=== PATIENT | male | born 1950 | race Caucasian/White ===

== ENCOUNTER 2019-01-21 02:11 | Inpatient (IN) | payer MEDICARE, OTHER, SELFPAY ==
[2019-01-21] VITALS (38 sets, daily range): BP systolic 140–224; BP diastolic 65–104; PULSE 80–106; RESP 12–25; TEMP 36.5–37.6; O2SAT 94–100; BMI 22.8; BMI 22.9
--- NOTE | 2019-01-21 02:11 | ECHOD_ITS ---
Reason For Study: CHF Procedure This was a 2D Doppler, Color Flow transthoracic echocardiogram. The study was technically difficult. Contrast injection was performed. Exam performed portable in ICU/CCU. Left Ventricle Normal LV size. Moderate concentric left ventricular hypertrophy. Left ventricular systolic function is normal. The estimated ejection fraction is 65 %. There is evidence of diastolic dysfunction. No regional wall motion abnormalities noted. Right Ventricle Normal RV size. Normal systolic function. Atria The left atrium is mildly enlarged. Normal right atrium. No doppler evidence for ASD. Mitral Valve There is mild mitral annular calcification. Normal mitral valve. Trivial mitral valve insufficiency. Tricuspid Valve Normal tricuspid valve. Trivial tricuspid valve insufficiency. Unable to estimate RV systolic pressure/pulmonary artery pressure due to technically difficult study. Aortic Valve The aortic valve is not well visualized. Mild focal aortic valve calcification. Pulmonic Valve The pulmonic valve is not well visualized. Trivial pulmonic valve insufficiency. Great Vessels The aortic root is not well visualized. Pericardium/Pleural No pericardial effusion. Epicardial fat. MMode/2D Measurements & Calculations LVIDd: 4.2 cm IVSd: 1.4 cm LA dimension: 3.8 cm LVIDs: 2.7 cm LVPWd: 1.4 cm FS: 35.2 % LAV(MOD-bp): 59.9 ml LA A4 area: 19.3 cm2 LAV(MOD-bp) Indexed: 35.5 ml/m2 LAV(MOD-sp2): 61.9 ml LAV(MOD-sp4): 52.0 ml Time Measurements MV dec time: 0.21 sec Doppler Measurements & Calculations MV E max marin: 80.4 cm/sec Lat Peak E' Marin: 7.9 cm/sec Med Peak E' Marin: 5.3 cm/sec MV A max marin: 47.4 cm/sec E/E' lat: 10.2 E/E' med: 15.2 MV E/A: 1.7 MV V2 max: 93.6 cm/sec MV P1/2t max marin: 94.4 cm/sec Ao V2 max: 138.9 cm/sec MV max P.5 mmHg MV P1/2t: 62.5 msec Ao max P.7 mmHg MV V2 mean: 49.9 cm/sec MV dec slope: 442.0 cm/sec2 MV mean P.2 mmHg MVA(P1/2t): 3.5 cm2 MV V2 VTI: 17.3 cm LV V1 max: 75.1 cm/sec LV V1 max P.3 mmHg Interpretation Summary The study was technically difficult. Contrast injection was performed. Left ventricular systolic function is normal. The estimated ejection fraction is 65 %. Moderate concentric left ventricular hypertrophy. The left atrium is mildly enlarged. There is mild mitral annular calcification. Trivial mitral valve insufficiency. Trivial tricuspid valve insufficiency. Mild focal aortic valve calcification. Trivial pulmonic valve insufficiency. Epicardial fat. Unable to estimate RV systolic pressure/pulmonary artery pressure due to technically difficult study. There is evidence of diastolic dysfunction. Ordering Physician: Laura Ghotra Performed By: Silvestre Parker RCS
--- NOTE | 2019-01-21 02:11 | US_ITS ---
STUDY: RENAL ULTRASOUND - COMPLETE REASON FOR EXAM: Male, 68 years old. Acute renal failure TECHNIQUE: Ultrasound evaluation of the kidneys was performed with real-time and static ji-scale imaging. COMPARISON: None. FINDINGS: RIGHT KIDNEY: The right kidney is not visualized.. LEFT KIDNEY: Normal location of the left kidney, which is normal in size. The left kidney measures 9.1 x 4.8 x 5 cm. There is a normal cortex of the left kidney. The renal cortex measures 1.6 cm. There is no left renal mass or cyst. There are no left renal calculi. There is no left hydronephrosis. DISTAL LEFT URETER: There is non-visualization of the distal left ureter. There is no demonstrated left ureterovesical junction calculus. There is a visualized left ureteral jet. BLADDER: There is a Jefferson catheter within the bladder.. US/Kidney and Bladder IMPRESSION: Nonvisualization of the right kidney. Normal left kidney CT may be helpful for further evaluation as might radionuclide renal scan if clinically indicated Electronically Signed: Chris Hodge MD at 17:43 EDT , Service support ,
--- NOTE | 2019-01-21 03:25 | HP.PCM_ITS ---
Problem List (1) Acute respiratory failure with hypoxia Status: Acute (2) Acute exacerbation of congestive heart failure Status: Acute Qualifiers: Heart failure type: unspecified Qualified Code(s): I50.9 - Heart failure, unspecified (3) COPD with acute exacerbation Status: Acute (4) Acute kidney injury Status: Acute (5) Cardiac enzymes elevated Status: Acute (6) Hypertensive emergency Status: Acute (7) Kidney disease Status: Chronic (8) Tobacco use Status: Chronic (9) Hypertension Status: Chronic Qualifiers: Hypertension type: essential hypertension Qualified Code(s): I10 - Essential (primary) hypertension (10) Hyperlipidemia Status: Chronic Qualifiers: Hyperlipidemia type: unspecified Qualified Code(s): E78.5 - Hyperlipidemia, unspecified (11) Alcohol abuse Status: Chronic History of Present Illness Date of Admission: 01/21/19 Chief Complaint: Dyspnea The patient is a 68 y/o M w/ Confucianism M w/ PMHx: EtOH Abuse, Tobacco, Suspected COPD, HTN, HLD, CKD unclear stage who presents to the [facility] on 01/21/19 as direct admission from [facility] [place] w/ history of presenting to [place] ED on 01/21/19 with history of several month history of dyspnea, worse with exertion as well as ongoing 1.5 pack/day cigarette tobacco usage since use with notably worsened dyspnea over the last 2 days with no specific productive cough although does have chronic cough nor fevers or chills and no specific weight gain or extremity edema with chronic orthopnea but this is unchanged from prior prompting eventual transition to the ED at outside hospital for evaluation. In the outside hospital ED patient initially with increased respiratory rate, accessory muscle usage, evident distress, retracting and minimal air movement with patient initial administration of Solu-Medrol, albuterol as well as DuoNeb therapy in addition to a small normal saline 500 cc bolus x1. Following this result of chest x-ray with additionally crackles then on examination with IV fluids immediately discontinued. Further work-up per discussion with outside hospital ED physician very concerning for volume overload but given patient concurrent acute kidney injury ED physician was hesitant about diuresis. Additional ED lab imaging, vital sign assessments included: VS: T 97.0, BP 238/132, HR 124, 35 RR, 90% on RA-->96% on 2L NC, HR 92, BP 198/94, RR 18-->SBP 211/103 upon leaving ED with ED physician aware CBC w/ WBC 12.7, Hgb 11.0, Plt 186 with no marked L shift LA 32 (> 36 considered elevated) Trop 0.17 (0.0-0.05 normal range, indeterminant range) BNP 4,100 CXR with ? volume overload, ? BL LE infiltrates CMP w/ Na 138, CO2 14.3, K 4.6, BUN/Cr 53/4.7, glucose 145, AG 23 ABG attempt x 2 failed, not obtained EKG with no acute evidence of ischemia Rocephin, Solumedrol 125 mg IV x 1, Albuterol x 2, Duoneb x 1, NS 500 x 1, Lasix 40 mg IV x 1. Past Medical History Past Medical History (Chronic Problems): Chronic Problems Kidney disease (Chronic) Tobacco use (Chronic) Hypertension (Chronic) Hyperlipidemia (Chronic) Alcohol abuse (Chronic) Surgical History: - - Tonsillectomy, appendectomy, left retinal detachment surgery. Psychiatric History: No pertinent psych hx Lives: Spouse/ Significant Other Smoking Status: Current every day smoker Tobacco Use: Cigarettes - Half pack per day cigarette tobacco usage. Alcohol: Heavy - Notes frequent burping usage, usually mixed, usually 8 drinks nightly. Drugs: None - *Family History Maternal History Items: - - Notes a maternal family history of hypertension. Paternal History Items: - - Father was healthy and unfortunately from complications at an older age from pneumonia but denied any history of heart disease, diabetes or cancer. Review of Systems Constitutional: Reports: Anorexia, Malaise, Weakness, Fatigue. Denies: Chills, Fever, Weight Change HEENT: Denies: Head Aches, Sinus Congestion, Sinus Drainage Cardiovascular: Reports: Chest Tightness, Orthopnea. Denies: Chest Pain, Chest Pressure, Heaviness, Light Headedness, Palpitations, Syncope Respiratory: Reports: Cough, Shortness of Breath, Shortness of breath at rest, Shortness of breath upon exertion, Wheezing. Denies: Sputum production Gastrointestinal: Denies: Abdominal Pain, Nausea, Vomiting Genitourinary: Denies: Dysuria Musculoskeletal: Reports: Joint Pain. Denies: Joint Tenderness Skin: Denies: Rash, Wounds Neurological: Denies: Numbness, Tingling, Focal weakness Psychiatric: Denies: Anxiety, Depression, Homicidal Ideations, Suicidal Ideations Hematologic/ Lymphatic: Denies: Easy Bruising, Easy Bleeding VTE Information - Inpt Only VTE Present on Admission: No VTE Mechan Device Prophylaxis: SCD's VTE Pharm Prophylaxis ordered?: Yes Patient Problems: Active and Suspected Problems Acute respiratory failure with hypoxia (Acute) Acute exacerbation of congestive heart failure (Acute) COPD with acute exacerbation (Acute) Acute kidney injury (Acute) Cardiac enzymes elevated (Acute) Hypertensive emergency (Acute) Subjective: Seated upright in the ICU bed, increased work of breathing, accessory muscle usage, some difficulty speaking full sentences. Objective: Physical Examination: General: awake, alert, oriented x 3 and cooperative, difficulty speaking in full sentences, seated upright in the ICU bed, increased work of breathing, accessory muscle usage, evident distress. Skin: normal color, turgor, no icterus, cyanosis. HEENT: AT/NC, EOMI, PERRLA, widely dry MM, no carotid bruits,+ JVD noted. Lungs: Severely diffusely diminished, increased respiratory rate, accessory muscle usage, increased work of breathing, evident distress, very very distant and expiratory wheeze, no overt rales or rhonchi noted. Heart: Tachycardic with regular rhythm; no gallop, rub audible. Abdomen: soft, NTTP, ND, normal BS, no HSM. Extremities: no cyanosis, clubbing, dural mild ankle edema. Neurological: patient awake, alert, oriented x 3; cognitive function intact; pupils equally reactive to light and accomodation; cranial nerves II-XII grossly normal, moving all 4 extremities, no focal deficits, strength really global decrease secondary to acute presentation. Psychiatric: affect appears fatigued, no acute evidence of depressive or anxiety feelings. Assessment/Plan All Active Problems Acute respiratory failure with hypoxia (Acute) Acute exacerbation of congestive heart failure (Acute) COPD with acute exacerbation (Acute) Acute kidney injury (Acute) Cardiac enzymes elevated (Acute) Hypertensive emergency (Acute) The patient is a 68 y/o M w/ Confucianism M w/ PMHx: EtOH Abuse, Tobacco, Suspected COPD, HTN, HLD, CKD unclear stage who presents to the [facility] on 01/21/19 as direct admission from [facility] [place] w/ history of presenting to [place] ED on 01/21/19 with history of several month history of dyspnea, worse with exertion as well as ongoing 1.5 pack/day cigarette tobacco usage since use with notably worsened dyspnea over the last 2 days with no specific productive cough although does have chronic cough nor fevers or chills and no specific weight gain or extremity edema with chronic orthopnea. 1. Acute hypoxic respiratory failure, multifactorial, Suspected Acute Decompensated CHF Unclear Type as well as #2: Given OSH ED presentation w/ respiratory distress and notable work of breathing, to be cautious vision to admit to ICU, upon initial presentation notably concerning with requested stat ABG and initiation of BiPAP,, maintain on cardiac telemetry, obtain cardiac enzyme series, obtain serial EKGs, initiate IV lasix diuresis given concern for overload, monitor I/Os, maintain on intake restriction, continue medical therapy w/ asa, add statin, NG drip initiation especially given notable hypertension ongoing, holding nephrotoxic regimen aside lasix given ETHAN concurrently. Will obtain TSH and magnesium level. Will obtain ECHO. Cardiology consulted, pending. PRN morphine to decrease afterload, continue oxygen supplementation, if necessary will position w/ upright position with legs off bed to decrease preload. 2. Acute on chronic COPD exacerbation: As noted above ABG pending, initiate BiPAP, wean as tolerated to room air, continue ATC duonebs, PRN albuterol, IV methylprednisolone, HOB, IS parameters, given afebrile, no WBC elevation or L shift, will defer abx initiation, will obtain sputum Cx, respiratory viral panel. 3. Acute kidney injury on ? CKD Unclear stage: Secondary to acute CHF hypervoemic presentation given history. Admission BUN/Cr 53/4.7, prior baseline creatinine unclear. As noted continue treatment as per #1, hold any additional nephrotoxic medications and repeat chemistry in AM. Will obtain renal US, FeNa assessment and request Nephrology evaluation of patient. 4. Indeterminate cardiac enzyme: EKG in ED w/ no acute evidence of ischemia, CXR w/ him overload with congested appearance, troponin 0.17 which at outside hospital ED facility is considered indeterminate. Will maintain on a monitored bed, continue serial cardiac enzymes and EKGs as noted. Obtain magnesium level upon admission. Given unclear trend, complicated presentation, to be cautious will initiate Heparin drip until ascertain direction of enzymes and if no further elevation will transition to prophylaxis only. Continue medical management w/ asa, add statin w/ AM FLP. Cardiology consulted, pending. ASA, NG, morphine. 5. Hypertensive Emergency: OSH ED presentation with BP 238/132--> repeat 198/94 with report falling which requested IV Lasix given acute presentation, requested regimen administration prior to transfer given ongoing elevation when RN report being administered. Will continue to very closely trend, unclear if potentially initiating factor to acute presentation #1, given #1 concurrently, NG drip initiation with concurrent IV Lasix diuresis continuation. 6. Hyperlipidemia: Add statin therapy, FLP in a.m. 7. Tobacco Abuse: Encouraged cessation, inpatient consultation per RT, NR if desired. 8. EtOH Abuse: Patient notes routine consumption of 8 mixed bourbon drinks per day. Will maintain on CIWA protocol, MVI, thiamine and folic acid. Magnesium and phosphorus levels requested. 9. DVT Prophylaxis: SCDs, heparin drip as noted given unclear trending of cardiac enzymes but concerning presentation. 10. CODE status: Discussed CODE status at length including difference between F ULL code, DNR-CCA and DNR-CC status. Following discussions about the differences in these status, requested full CODE STATUS advanced Care Planning Face to Face Time: 16 minutes. Code Visit Inpatient E&M: 82459 Init Hosp L3 Procedures: 80311 Advncd Care Plan 30 Min
[2019-01-21 03:50] LABS: Absolute Lymphocyte Count 0.23 X10^3/uL (0.83-4.51); Absolute Neutrophil Count 6.5 X10^3/uL (2.0-7.7); Basophil# 0.02 X10^3/uL; Basophil% 0.3 % (0-1); Hematocrit 33.9 % (40-54); Hemoglobin 11.2 g/dL (13.0-16.5); Lymphocyte # 0.23 X10^3/ul (4.0); Lymphocyte % 3.3 % (19-41); Mean Corpuscular Hgb 39.7 pg (27.0-32.0); Mean Corpuscular Volume 120.2 fL (80-94); Mean Platelet Vol. 10.3 fl (6.2-12.0); Monocyte# 0.21 X10^3/uL; NRBC Flagged by Analyzer 0 % (0-5); Neutrophil # 6.46 X10^3/uL (2.7-7.7); POSITIVE DIFFERENTIAL YES; POSITIVE MORPHOLOGY YES; Platelet Count 144 K/mm3 (150-450); RBC Distribution Width SD 62.3 fl (35.1-43.9); Red Blood Count 2.82 M/mm3 (4.6-6.2)
[2019-01-21 03:51] LABS: Differential Indicated SCAN CRITERIA MET
[2019-01-21 03:56] LABS: International Normalized Ratio 1.1; Prothrombin Time (Protime)PT. 13.6 SECONDS (11.7-14.9)
[2019-01-21 03:57] LABS: Partial Thromboplast Time 28.3 Seconds (24.1-36.2)
[2019-01-21] MEDS: Furosemide 40 MG/4 ML Vial IV ×3 (04:01→21:09)
[2019-01-21 04:08] LABS: Anion Gap 18 (5-15); BUN 54 mg/dL (7-18); BUN/Creat Ratio 10.9 RATIO (10-20); Calcium,Total 8.3 mg/dL (8.5-10.1); Chloride 110 mmol/L (98-107); Cholesterol 223 mg/dL (200); Creatinine, Serum 4.94 mg/dL (0.70-1.30); EST Glomerular Filtration Rate 13 mL/min (>60); Est Glom Filt Rate - Afr Amer 15 mL/min (>60); Estimated Creatinine Clearance 12.45 ml/min; Glucose 156 mg/dL (74-106); High Density Lipoprotein 119 mg/dL; Potassium 4.5 mmol/L (3.5-5.1); Sodium Level 142 mmol/L (136-145); Triglycerides 115 mg/dL; Very Low Density Lipoprotein 23 mg/dL (5-40)
[2019-01-21 04:14] LABS: Magnesium 1.2 mg/dL (1.6-2.6); Thyroid Stim Hormone (TSH) 0.98 uIU/mL (0.358-3.74)
[2019-01-21] MEDS: Nitroglycerin Infusion 250 ML 3 MG IV (04:14)
[2019-01-21 04:26] LABS: Allen Test POS; Base Excess -15 mmol/L (-2 to +2); Bicarbonate 11.3 mmol/L (22-26); Blood Gas Specimen Type ART; O2 Delivery Device Nasal Can; PO2 81 mmHG (75-100); SITE L Radial; SO2 95 % (95-99); Time Given 415; Total Carbon Dioxide 12 mmol/L; pCO2 22.3 mmHg (35-45); pH 7.32 (7.35-7.45)
[2019-01-21 04:41] LABS: Bedside Glucose 171 mg/dL (70-110)
[2019-01-21 04:41] LABS: Mucous, Urine 0 SEEN /hpf (<or=2+); Squamous Epithelial Cells - UA 0 SEEN /hpf (0-5)
[2019-01-21] MEDS: HEPARIN/D5w 25,000 UNITS 25,000 UNITS/250 ML IV.SOLN. 10 UNITS IV (04:43)
[2019-01-21] MEDS: CLARIFY ORDER 1 EACH NOTE ×2 (04:44→05:00)
[2019-01-21 04:46] LABS: Color, Urine Straw (Yellow); Glucose, Dipstick Normal (Normal); Ketone-Dipstick 5 mg/dl (Negative); Leukocyte Esterase-Dipstick Negative /ul (Negative); Nitrite-Dipstick Negative (Negative); Occult Blood-Urine 10 /ul (Negative); Protein-Dipstick 100 mg/dl (Negative); Urine Bilirubin Dipstick Negative (Negative); Urine Clarity Clear (Clear); Urine Urobilinogen Normal (Normal)
[2019-01-21 04:53] LABS: Bacteria RARE /hpf (None Seen)
[2019-01-21 04:54] LABS: Red Blood Cells-Urine 0-5 SEEN /hpf (0-5); White Blood Cells 0 SEEN /hpf (0-5)
[2019-01-21 04:56] LABS: Phosphorus 5.3 mg/dL (2.5-4.9)
[2019-01-21 05:01] LABS: Urine Sodium 120 mmol/L (Not Establ.)
[2019-01-21] MEDS: Heparin Injection (Vial) 5,000 UNIT/ML VIAL 4500 UNIT IV (05:05)
[2019-01-21 05:11] LABS: Amphetamine Urine VISTA NEGATIVE (<1000 ng/mL); Barbiturate Urine VISTA NEGATIVE (< 200 ng/mL); Benzodiazepine Urine VISTA NEGATIVE (< 200 ng/mL); Cocaine Urine VISTA NEGATIVE (< 300 ng/mL); Ecstacy Urine VISTA NEGATIVE (< 500 ng/mL); Methadone Urine VISTA NEGATIVE (< 300 ng/mL); PCP Urine VISTA NEGATIVE (< 25 ng/mL); THC Urine VISTA NEGATIVE (< 50 ng/mL); Vista UDS pH Range 6
--- NOTE | 2019-01-21 05:55 | RAD_ITS ---
STUDY: X-RAY CHEST REASON FOR EXAM: Male, 68 years old. Shortness of breath TECHNIQUE: Single AP portable view of the chest. COMPARISON: None. FINDINGS: The lungs are clear and expanded. There is no demonstrated pleural abnormality. Normal size heart. Normal mediastinum and susan. Normal visualized pulmonary arteries. Normal visualized aortic arch and descending thoracic aorta. Normal visualized thoracic spine. Normal visualized ribs, clavicles, and shoulders. There is no demonstrated abnormality of the visualized soft tissue structures of the upper abdomen. RAD/Chest 1 View (Portable) IMPRESSION: Normal x-ray examination of the chest. Electronically Signed: Lissette White, at 10:42 EDT Tel , Service support ,
--- NOTE | 2019-01-21 05:55 | EKG12_ITS ---
Test Reason : ADMISSION Blood Pressure : / mmHG Vent. Rate : 113 BPM Atrial Rate : 113 BPM P-R Int : 152 ms QRS Dur : 094 ms QT Int : 368 ms P-R-T Axes : 000 030 217 degrees QTc Int : 504 ms Baseline Artifact, underlying rhythm appears to be A-fib Marked ST abnormality, possible inferior subendocardial injury Marked ST abnormality, possible anterolateral subendocardial injury Abnormal ECG No previous ECGs available Confirmed by ANITRA MITCHELL, KASI ([id number]), research editor BAY CLEMENTE ([id number]) on 01/28/2019 3:18:47 PM Referred By: SAJI Confirmed By:JESICA AYOUB MD
[2019-01-21] MEDS: Magnesium Sulfate 4gm/100mL 4 GM/100 ML IV.SOLN. IV (06:39)
[2019-01-21] MEDS: Ipratropium/Albuterol Sulfate 3 ML AMPUL.NEB INHALATION ×4 (07:11→19:10)
--- NOTE | 2019-01-21 07:27 | PCM.CON.CC ---
Problem List (1) Acute respiratory failure with hypoxia Status: Acute (2) Acute exacerbation of congestive heart failure Status: Suspected Qualifiers: Heart failure type: unspecified Qualified Code(s): I50.9 - Heart failure, unspecified (3) Acute kidney injury Status: Suspected (4) Kidney disease Status: Chronic (5) Hypertensive emergency Status: Acute (6) Tobacco use Status: Chronic (7) Hypertension Status: Chronic Qualifiers: Hypertension type: essential hypertension Qualified Code(s): I10 - Essential (primary) hypertension (8) Hyperlipidemia Status: Chronic Qualifiers: Hyperlipidemia type: unspecified Qualified Code(s): E78.5 - Hyperlipidemia, unspecified Reason for Consult Date of Consultation: 01/21/19 Reason for Consultation: Acute respiratory failure History of Present Illness: The patient is a 68 year old M, with past medical history listed below, who presented to [facility] as a transfer from [facility] secondary to acute hypoxic respiratory failure. Patient had reported worsening shortness of breath over the last couple of months, but since Monday has noted significant shortness of breath. Patient states that he had a cough that was productive of clear to pale yellow sputum. Patient had reported no fever, chills, lower extremity edema orthopnea. At the outside facility, patient reportedly had blood pressures in excess of 220 systolic and 110 diastolic. Patient was given Solu-Medrol, DuoNeb and a normal saline bolus. There was some concern for patient's renal function. Patient did require BiPAP rescue overnight. Patient reports some improvement since being in the intensive care unit. Patient is currently on a nitroglycerin drip with improvement in blood pressure. Patient is also requiring BiPAP intermittently and reports subjective improvement with it in place. Patient is requiring supplemental oxygen, but states this has not been necessary previously. Patient has received Rocephin, Solu-Medrol, albuterol and DuoNeb therapy. Patient readily admits that he does not like seeing doctors. Patient does report that he has been seen by wax room supervisor in the past and there was some discussion about concerns for lower extremity perfusion and possible need for dialysis if I got contrast. Patient is not aware of his baseline creatinine, but states that he has had his labs completed at [facility] previously. Patient does smoke at baseline, but reports he is never had pulmonary function tests. Patient is reportedly not on inhalers at baseline. Patient denies ever needing intensive care previously. Patient denies ever needing supplemental oxygen. Patient does admit that I have been going downhill for the last couple of years. 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 Past Medical History Past Medical History (Chronic Problems): Chronic Problems Kidney disease (Chronic) Tobacco use (Chronic) Hypertension (Chronic) Hyperlipidemia (Chronic) Alcohol abuse (Chronic) Allergies No Known Allergies Allergy (Verified 01/21/19 03:55) Home Medications: Ambulatory Orders Medication Instructions Recorded Metoprolol Succinate [Toprol Xl] 50 mg PO DAILY 01/21/19 Surgical History: - - Tonsillectomy, appendectomy, left retinal detachment surgery. Psychiatric History: No pertinent psych hx Lives: Spouse/ Significant Other Smoking Status: Current every day smoker Tobacco Use: Cigarettes Alcohol: Heavy - Notes frequent burping usage, usually mixed, usually 8 drinks nightly. Drugs: None - *Family History Maternal History Items: - - Notes a maternal family history of hypertension. Paternal History Items: - - Father was healthy and unfortunately from complications at an older age from pneumonia but denied any history of heart disease, diabetes or cancer. Review of Systems Constitutional: Denies: Anorexia, Chills, Fever, Night Sweats, Weakness, Weight Change Eyes: Denies: Blurred vision, Conjunctivae Inflammation, Double vision, Eyelid Inflammation HEENT: Denies: Difficulty Hearing, Difficulty Swallowing, Ear Pain, Hard of Hearing, Nasal bleeding, Nasal Congestion Cardiovascular: Reports: Chest Tightness. Denies: Chest Pain, Chest Pressure, Edema, Orthopnea Respiratory: Reports: Cough, Shortness of breath at rest - Currently. Denies: Pleuritic Pain Gastrointestinal: Denies: Abdominal Pain, Constipation, Diarrhea, Hematemesis, Hematochezia, Vomiting Genitourinary: Denies: Dysuria, Hematuria, Incontinence Musculoskeletal: Denies: Joint stiffness, Joint Tenderness, Muscle pain Skin: Denies: Dryness, Rash Neurological: Denies: Balance problems, Double vision, Change in Speech Psychiatric: Denies: Anxiety, Depression, Homicidal Ideations, Suicidal Ideations Endocrine: Denies: Change in Body Habitus Hematologic/ Lymphatic: Denies: Adenopathy, Easy Bruising Patient Problems: Active and Suspected Problems Acute respiratory failure with hypoxia (Acute) Acute exacerbation of congestive heart failure (Suspected) COPD with acute exacerbation (Acute) Acute kidney injury (Suspected) Cardiac enzymes elevated (Acute) Hypertensive emergency (Acute) Objective: Chest x-ray was personally reviewed and shows no acute infiltrate, but cephalization bilaterally. No echocardiogram, pulmonary function test or other diagnostic studies are available for review in our computer system. - Physical Exam General: Alert, Oriented x3, Cooperative, No apparent distress, - - Appears stated age. Mild conversational dyspnea. HEENT: Atraumatic, PERRLA, EOMI, Normocephalic, - - No scleral icterus or injection noted. Oral: Moist Mucosa, No Gingival or Mucosal Lesions/ Ulcerations Neck: Supple, No Nodes, Trachea Midline, JVD, Right Lungs: No rhonchi, No wheeze, Diminished, Rales Cardiovascular: Regular rate, Regular Rhythm, Normal S1, Normal S2, No murmurs, No rub noted, No Gallop Abdomen: Bowel Sounds Present, Soft, Non Tender, Non-Distended Extremities: No clubbing, No cyanosis, No edema, Capillary Refill Less than 3 Seconds Skin: No rashes, No breakdown Musculoskeletal: No Tenderness to Palpation of Joints or Extremities Lymphatic: No Cervical, Supraclavicular, or Inguinal Adenopathy Neurological: Cranial nerves II-XII grossly intact, Neuro grossly intact, Motor Exam 5/5 strength throughout Psych/Mental Status: Alert and oriented to time, place, person, mood and affect Vital Signs Temp Pulse Resp BP Pulse Ox 37.0 C 85 18 171/86 H 96 01/21/19 07:00 01/21/19 07:13 01/21/19 07:13 01/21/19 07:00 01/21/19 07:14 Oxygen Flow Rate (L/min) 3 Oxygen Delivery Method Nasal Cannula Weight: 62.3 kg Body Mass Index (BMI) 22.8 Intake and Output for Last 24 Hours 01/19/19 01/20/19 01/21/19 23:59 23:59 23:59 Output Total 500 / 500 Balance -500 / -500 Laboratory Tests Past 24 Hrs 01/21/19 01/21/19 01/21/19 03:35 03:35 03:35 WBC 7.0 RBC 2.82 L Hgb 11.2 L Hct 33.9 L MCV 120.2 H MCH 39.7 H MCHC 33.0 RDW Std Deviation 62.3 H RDW Coeff of Anuradha 14.0 Plt Count 144 L MPV 10.3 Immature Gran % (Auto) 0.400 Neut % (Auto) 93.0 H Lymph % (Auto) 3.3 L Gaston % (Auto) 3.0 Eos % (Auto) 0.0 Baso % (Auto) 0.3 Absolute Neuts (auto) 6.5 Absolute Lymphs (auto) 0.23 L Nucleated RBC % 0 PT 13.6 INR 1.1 APTT 28.3 Specimen Type Sample Site pH Bicarbonate Actual POC Total CO2 Base Excess O2 Saturation ABG pCO2 ABG pO2 Sanchez Test O2 Delivery Device Liter Flow Blood Gas Notified Whom Blood Gas Notified Time Sodium Potassium Chloride Carbon Dioxide Anion Gap BUN Creatinine Estim Creat Clear Calc Est GFR (MDRD) Af Amer Est GFR (MDRD) Non-Af BUN/Creatinine Ratio Glucose Calcium Phosphorus Magnesium 1.2 L Troponin I Triglycerides Cholesterol LDL Cholesterol VLDL Cholesterol HDL Cholesterol TSH 0.98 Urine Color Urine Clarity Urine pH Ur Specific Childress Urine Protein Urine Glucose (UA) Urine Ketones Urine Occult Blood Urine Nitrite Urine Bilirubin Urine Urobilinogen Ur Leukocyte Esterase Urine RBC Urine WBC Ur Squamous Epith Cells Urine Bacteria Urine Mucus Ur Random Sodium Urine Creatinine Urine Opiates Screen Urine Methadone Screen Ur Barbiturates Screen Ur Phencyclidine Scrn Ur Amphetamines Screen U Methamphetamin-MDMA U Benzodiazepines Scrn Urine Cocaine Screen U Cannabinoids Screen Ur Drug Screen Comment Ethyl Alcohol 01/21/19 01/21/19 01/21/19 03:35 03:35 03:35 WBC RBC Hgb Hct MCV MCH MCHC RDW Std Deviation RDW Coeff of Anuradha Plt Count MPV Immature Gran % (Auto) Neut % (Auto) Lymph % (Auto) Gaston % (Auto) Eos % (Auto) Baso % (Auto) Absolute Neuts (auto) Absolute Lymphs (auto) Nucleated RBC % PT INR APTT Specimen Type Sample Site pH Bicarbonate Actual POC Total CO2 Base Excess O2 Saturation ABG pCO2 ABG pO2 Sanchez Test O2 Delivery Device Liter Flow Blood Gas Notified Whom Blood Gas Notified Time Sodium 142 Potassium 4.5 Chloride 110 H Carbon Dioxide 14.0 L Anion Gap 18 H BUN 54 H Creatinine 4.94 H Estim Creat Clear Calc 12.45 Est GFR (MDRD) Af Amer 15 L Est GFR (MDRD) Non-Af 13 L BUN/Creatinine Ratio 10.9 Glucose 156 H Calcium 8.3 L Phosphorus 5.3 H Magnesium Troponin I Pending Triglycerides 115 Cholesterol 223 H LDL Cholesterol 81 VLDL Cholesterol 23 HDL Cholesterol 119 TSH Urine Color Urine Clarity Urine pH Ur Specific Childress Urine Protein Urine Glucose (UA) Urine Ketones Urine Occult Blood Urine Nitrite Urine Bilirubin Urine Urobilinogen Ur Leukocyte Esterase Urine RBC Urine WBC Ur Squamous Epith Cells Urine Bacteria Urine Mucus Ur Random Sodium Urine Creatinine Urine Opiates Screen Urine Methadone Screen Ur Barbiturates Screen Ur Phencyclidine Scrn Ur Amphetamines Screen U Methamphetamin-MDMA U Benzodiazepines Scrn Urine Cocaine Screen U Cannabinoids Screen Ur Drug Screen Comment Ethyl Alcohol 01/21/19 01/21/19 01/21/19 04:22 04:30 04:30 WBC RBC Hgb Hct MCV MCH MCHC RDW Std Deviation RDW Coeff of Anuradha Plt Count MPV Immature Gran % (Auto) Neut % (Auto) Lymph % (Auto) Gaston % (Auto) Eos % (Auto) Baso % (Auto) Absolute Neuts (auto) Absolute Lymphs (auto) Nucleated RBC % PT INR APTT Specimen Type ART Sample Site L Radial pH 7.32 L Bicarbonate Actual 11.3 L POC Total CO2 12 Base Excess -15 L O2 Saturation 95 ABG pCO2 22.3 L ABG pO2 81 Sanchez Test POS O2 Delivery Device Nasal Can Liter Flow 4.0 Blood Gas Notified Whom ICU MD Blood Gas Notified Time 415 Sodium Potassium Chloride Carbon Dioxide Anion Gap BUN Creatinine Estim Creat Clear Calc Est GFR (MDRD) Af Amer Est GFR (MDRD) Non-Af BUN/Creatinine Ratio Glucose Calcium Phosphorus Magnesium Troponin I Triglycerides Cholesterol LDL Cholesterol VLDL Cholesterol HDL Cholesterol TSH Urine Color Urine Clarity Urine pH Ur Specific Childress Urine Protein Urine Glucose (UA) Urine Ketones Urine Occult Blood Urine Nitrite Urine Bilirubin Urine Urobilinogen Ur Leukocyte Esterase Urine RBC Urine WBC Ur Squamous Epith Cells Urine Bacteria Urine Mucus Ur Random Sodium Urine Creatinine 17.00 Urine Opiates Screen NEGATIVE Urine Methadone Screen NEGATIVE Ur Barbiturates Screen NEGATIVE Ur Phencyclidine Scrn NEGATIVE Ur Amphetamines Screen NEGATIVE U Methamphetamin-MDMA NEGATIVE U Benzodiazepines Scrn NEGATIVE Urine Cocaine Screen NEGATIVE U Cannabinoids Screen NEGATIVE Ur Drug Screen Comment Ethyl Alcohol 01/21/19 01/21/19 01/21/19 04:30 04:30 05:00 WBC RBC Hgb Hct MCV MCH MCHC RDW Std Deviation RDW Coeff of Anuradha Plt Count MPV Immature Gran % (Auto) Neut % (Auto) Lymph % (Auto) Gaston % (Auto) Eos % (Auto) Baso % (Auto) Absolute Neuts (auto) Absolute Lymphs (auto) Nucleated RBC % PT INR APTT Specimen Type Sample Site pH Bicarbonate Actual POC Total CO2 Base Excess O2 Saturation ABG pCO2 ABG pO2 Sanchez Test O2 Delivery Device Liter Flow Blood Gas Notified Whom Blood Gas Notified Time Sodium Potassium Chloride Carbon Dioxide Anion Gap BUN Creatinine Estim Creat Clear Calc Est GFR (MDRD) Af Amer Est GFR (MDRD) Non-Af BUN/Creatinine Ratio Glucose Calcium Phosphorus Magnesium Troponin I Triglycerides Cholesterol LDL Cholesterol VLDL Cholesterol HDL Cholesterol TSH Urine Color Straw Urine Clarity Clear Urine pH 6.0 Ur Specific Child[place] 1.010 Urine Protein 100 H Urine Glucose (UA) Normal Urine Ketones 5 H Urine Occult Blood 10 H Urine Nitrite Negative Urine Bilirubin Negative Urine Urobilinogen Normal Ur Leukocyte Esterase Negative Urine RBC 0-5 SEEN Urine WBC 0 SEEN Ur Squamous Epith Cells 0 SEEN Urine Bacteria RARE Urine Mucus 0 SEEN Ur Random Sodium 120 Urine Creatinine Urine Opiates Screen Urine Methadone Screen Ur Barbiturates Screen Ur Phencyclidine Scrn Ur Amphetamines Screen U Methamphetamin-MDMA U Benzodiazepines Scrn Urine Cocaine Screen U Cannabinoids Screen Ur Drug Screen Comment Ethyl Alcohol 0.0 01/21/19 01/21/19 05:00 06:45 WBC RBC Hgb Hct MCV MCH MCHC RDW Std Deviation RDW Coeff of Anuradha Plt Count MPV Immature Gran % (Auto) Neut % (Auto) Lymph % (Auto) Gaston % (Auto) Eos % (Auto) Baso % (Auto) Absolute Neuts (auto) Absolute Lymphs (auto) Nucleated RBC % PT INR APTT Specimen Type Sample Site pH Bicarbonate Actual POC Total CO2 Base Excess O2 Saturation ABG pCO2 ABG pO2 Sanchez Test O2 Delivery Device Liter Flow Blood Gas Notified Whom Blood Gas Notified Time Sodium Potassium Chloride Carbon Dioxide Anion Gap BUN Creatinine Estim Creat Clear Calc Est GFR (MDRD) Af Amer Est GFR (MDRD) Non-Af BUN/Creatinine Ratio Glucose Calcium Phosphorus Magnesium Troponin I Cancelled Pending Triglycerides Cholesterol LDL Cholesterol VLDL Cholesterol HDL Cholesterol TSH Urine Color Urine Clarity Urine pH Ur Specific Childress Urine Protein Urine Glucose (UA) Urine Ketones Urine Occult Blood Urine Nitrite Urine Bilirubin Urine Urobilinogen Ur Leukocyte Esterase Urine RBC Urine WBC Ur Squamous Epith Cells Urine Bacteria Urine Mucus Ur Random Sodium Urine Creatinine Urine Opiates Screen Urine Methadone Screen Ur Barbiturates Screen Ur Phencyclidine Scrn Ur Amphetamines Screen U Methamphetamin-MDMA U Benzodiazepines Scrn Urine Cocaine Screen U Cannabinoids Screen Ur Drug Screen Comment Ethyl Alcohol POC Glucose 01/21/19 04:24 POC Glucose 171 H Assessment/Plan Active and Suspected Problems Acute respiratory failure with hypoxia (Acute) Acute exacerbation of congestive heart failure (Suspected) COPD with acute exacerbation (Acute) Acute kidney injury (Suspected) Cardiac enzymes elevated (Acute) Hypertensive emergency (Acute) RECOMMENDATIONS: 1. Continue nitroglycerin drip to keep systolic approximately 180 2. BiPAP breaks as tolerated 3. Attempt to obtain old records about renal function 4. Avoid nephrotoxic medications 5. Await cardiology consultation. Continue aspirin and statin. 6. Monitor for signs and symptoms of withdrawal IMPRESSIONS: 1. Acute hypoxic respiratory failure secondary to probable flash pulmonary edema Patient with significant elevation of blood pressure in the ER at the outside facility in the setting of reported chronic renal disease. Patient was given IV Lasix and BiPAP with good response. We will continue to give BiPAP breaks as tolerated. Wean oxygen as tolerated. No infiltrate appreciated on chest x-ray, but does have cephalization. 2. Possible COPD exacerbation Patient is never had pulmonary function test for quantification and clarification of lung function. However, patient does have a history of significant smoking. Patient has been placed on IV steroids and incentive spirometer. Patient not currently on antibiotics, but sputum and respiratory panel are currently pending. Initiate antibiotics with fever. 3. Possible acute on chronic kidney disease Patient reports that I was informed I may need dialysis. We will attempt to obtain old information from outside facility. Hold nephrotoxic medications. Renal ultrasound and nephrology have been consulted. 4. Hypertensive emergency Unclear etiology. Patient appears to have a history of noncompliance and reports only being on a beta-cristhian. Patient has responded to Lasix and nitroglycerin. Keeping systolic blood pressure around 180 is likely appropriate as rapid decrease in blood pressure could precipitate other complications. 5. Tobacco abuse/hyperlipidemia/reported alcohol abuse Complicates care, management, recovery and prognosis. Will need to monitor for withdrawal. Patient has been placed on thiamine and folate. TIME: 34 minutes critical care time spent addressing patient's acute hypoxic respiratory failure, hypertensive urgency, renal function, review of all data and collaboration with care team (6:45 AM to 7:46 AM) Code Visit [id number]: [id number] Critical care first hour
--- NOTE | 2019-01-21 08:14 | PCM.PN.HOSP ---
Patient Problems: Active and Suspected Problems Acute respiratory failure with hypoxia (Acute) Acute exacerbation of congestive heart failure (Suspected) COPD with acute exacerbation (Acute) Acute kidney injury (Suspected) Cardiac enzymes elevated (Acute) Hypertensive emergency (Acute) Subjective: Patient was seen and examined. He feels much better. On 2 L of oxygen. Denies any chest pain or progressive worsening shortness of breath or dizziness palpitations. Vitals/I&O's: Vital Signs Temp Pulse Resp BP Pulse Ox 98.6 F 85 18 171/86 H 96 01/21/19 07:00 01/21/19 07:13 01/21/19 07:13 01/21/19 07:00 01/21/19 07:14 Oxygen Flow Rate (L/min) 3 Oxygen Delivery Method Nasal Cannula Weight: 62.3 kg Body Mass Index (BMI) 22.8 Intake and Output for Last 24 Hours 01/19/19 01/20/19 01/21/19 23:59 23:59 23:59 Output Total 500 / 500 Balance -500 / -500 General: Alert, Oriented x3, Cooperative, No apparent distress, - - on 2L oxygen, able to complete sentences HEENT: Atraumatic, PERRLA, EOMI, Normocephalic Oral: Moist Mucosa Neck: Supple Lungs: Clear to auscultation, Normal air movement Cardiovascular: Regular rate, Regular Rhythm, Normal S1, Normal S2 Abdomen: Bowel Sounds Present, Soft, Non Tender, Non-Distended, No Hepato-splenomegaly Extremities: Edema - Bilateral pedal +2 Skin: No rashes, No breakdown Musculoskeletal: No Tenderness to Palpation of Joints or Extremities Lymphatic: No Cervical, Supraclavicular, or Inguinal Adenopathy Neurological: Cranial nerves II-XII grossly intact, Neuro grossly intact Psych/Mental Status: Normal Affect, Appropriate Laboratory Results 01/21/19 03:35: PT 13.6, INR 1.1, APTT 28.3 01/21/19 03:35: Magnesium 1.2 L, TSH 0.98 01/21/19 03:35: WBC 7.0, RBC 2.82 L, Hgb 11.2 L, Hct 33.9 L, MCV 120.2 H, MCH 39.7 H, MCHC 33.0, RDW Std Deviation 62.3 H, RDW Coeff of Anuradha 14.0, Plt Count 144 L, MPV 10.3, Immature Gran % (Auto) 0.400, Neut % (Auto) 93.0 H, Lymph % (Auto) 3.3 L, Gilliam % (Auto) 3.0, Eos % (Auto) 0.0, Baso % (Auto) 0.3, Absolute Neuts (auto) 6.5, Absolute Lymphs (auto) 0.23 L, Nucleated RBC % 0 01/21/19 03:35: Sodium 142, Potassium 4.5, Chloride 110 H, Carbon Dioxide 14.0 L, Anion Gap 18 H, BUN 54 H, Creatinine 4.94 H, Estim Creat Clear Calc 12.45, Est GFR (MDRD) Af Amer 15 L, Est GFR (MDRD) Non-Af 13 L, BUN/Creatinine Ratio 10.9, Glucose 156 H, Calcium 8.3 L, Triglycerides 115, Cholesterol 223 H, LDL Cholesterol 81, VLDL Cholesterol 23, HDL Cholesterol 119 01/21/19 03:35: Phosphorus 5.3 H 01/21/19 03:35: Troponin I 0.279 H 01/21/19 04:22: Specimen Type ART, Sample Site L Radial, pH 7.32 L, Bicarbonate Actual 11.3 L, POC Total CO2 12, Base Excess -15 L, O2 Saturation 95, ABG pCO2 22.3 L, ABG pO2 81, Sanchez Test POS, O2 Delivery Device Nasal Can, Liter Flow 4.0, Blood Gas Notified Whom ICU , Blood Gas Notified Time 415 01/21/19 04:24: POC Glucose 171 H 01/21/19 04:30: Urine Opiates Screen NEGATIVE, Urine Methadone Screen NEGATIVE, Ur Barbiturates Screen NEGATIVE, Ur Phencyclidine Scrn NEGATIVE, Ur Amphetamines Screen NEGATIVE, U Methamphetamin-MDMA NEGATIVE, U Benzodiazepines Scrn NEGATIVE, Urine Cocaine Screen NEGATIVE, U Cannabinoids Screen NEGATIVE, Ur Drug Screen Comment 01/21/19 04:30: Urine Creatinine 17.00 01/21/19 04:30: Urine Color Straw, Urine Clarity Clear, Urine pH 6.0, Ur Specific [place] 1.010, Urine Protein 100 H, Urine Glucose (UA) Normal, Urine Ketones 5 H, Urine Occult Blood 10 H, Urine Nitrite Negative, Urine Bilirubin Negative, Urine Urobilinogen Normal, Ur Leukocyte Esterase Negative, Urine RBC 0-5 SEEN, Urine WBC 0 SEEN, Ur Squamous Epith Cells 0 SEEN, Urine Bacteria RARE, Urine Mucus 0 SEEN 01/21/19 04:30: Ur Random Sodium 120 01/21/19 05:00: Ethyl Alcohol 0.0 01/21/19 05:00: Troponin I Cancelled 01/21/19 06:45: Troponin I 0.295 H Current Medications Albuterol Sulfate (Ventolin Aerosols) 2.5 mg INHALATION Q2H PRN PRN PRN Reason: SHORTNESS OF BREATH Albuterol/Ipratropium (Duoneb) 3 ml INHALATION Q4HWA.RT [facility] Last Admin: 01/21/19 07:11 Dose: 3 ml Documented by: Aspirin (Ecotrin) 81 mg PO DAILY@0800 [facility] Atorvastatin Calcium (Lipitor) 40 mg PO QHS [facility] Dextrose (D50w Syringe) 0 gm IV X1 PRN; Protocol PRN Reason: Hypoglycemia Folic Acid (Folic Acid) 1 mg PO DAILY@0800 [facility] Stop: 01/23/19 08:01 Furosemide (Lasix) 40 mg IV Q8 [facility] Last Admin: 01/21/19 04:01 Dose: 40 mg Documented by: Glucagon () 1 mg IM .X1 PRN PRN Reason: Hypoglycemia Heparin Sodium (Porcine) (Heparin Na) 0 unit IV UD PRN; Protocol Nitroglycerin/Dextrose () 250 mls @ 3 mls/hr IV .[id number] [facility] Last Admin: 01/21/19 04:14 Dose: 5 mcg/min, 3 mls/hr Documented by: Heparin Sodium/Dextrose () 25,000 units in 250 mls @ 10 mls/hr IV .Q25H [facility]; Protocol Last Admin: 01/21/19 04:43 Dose: 10 mls/hr Documented by: Magnesium Sulfate () 4 gm in 100 mls @ 25 mls/hr IV X1 ONE Stop: 01/21/19 10:23 Last Admin: 01/21/19 06:39 Dose: 25 mls/hr Documented by: Lorazepam (Ativan) 2 mg PO Q2H PRN PRN; Protocol PRN Reason: CIWA score > 8 but <15 Lorazepam (Ativan) 2 mg PO UD PRN; Protocol PRN Reason: CIWA score >/=15. Lorazepam (Ativan) 2 mg IV Q2H PRN PRN; Protocol PRN Reason: CIWA score > 8 but <15 Lorazepam (Ativan) 2 mg IV UD PRN; Protocol PRN Reason: CIWA score >/=15. Melatonin (Melatonin) 3 mg PO QHS PRN PRN PRN Reason: INSOMNIA Methylprednisolone (Solu-Medrol) 40 mg IV Q8 [facility] Last Admin: 01/21/19 05:02 Dose: 40 mg Documented by: Morphine Sulfate () 2 mg IV Q3H PRN PRN PRN Reason: Severe pain (7-10/10) Multivitamins/Minerals (Multivitamin With Minerals) [facility] [place] Nitroglycerin (Nitrostat) 0.4 mg SUBLINGUAL Q5M PRN PRN Reason: CARDIAC/CHEST PAIN Oxycodone HCl (Oxyir) 5 mg PO Q4H PRN PRN PRN Reason: Moderate pain (4-6/10) Sodium Chloride () 10 - 40 ml IV UD PRN PRN Reason: SALINE FLUSH Thiamine HCl (Vitamin B1) [facility] [place] Stop: 01/23/19 17:01 Medical Necessity - Tobacco Use Smoking Status: Current every day smoker Tobacco Use: Cigarettes Assessment/Plan All Active Problems Acute respiratory failure with hypoxia (Acute) COPD with acute exacerbation (Acute) Cardiac enzymes elevated (Acute) Hypertensive emergency (Acute) 88-year-old male with past medical history of alcohol/tobacco abuse, hypertension, hyperlipidemia, unknown CKD stage who comes in with progressive shortness of breath and has been managed as acute hypoxic respiratory insufficiency/acute COPD exacerbation/ETHAN/acute decompensated heart failure 1. Acute hypoxic respiratory insufficiency, multifactorial -acute decompensated diastolic CHF/acute COPD exacerbation improved with 2 L of oxygen, continue Solu-Medrol, and CHF management 2. Acute decompensated diastolic CHF, improved on Lasix, diuresing well, continue Lasix, nephrology consult pending, cardiology consulted Labs in a.m. 3. ETHAN versus CKD, likely second to acute decompensated diastolic CHF, will continue to monitor Renal ultrasound pending, for nephrology consulted 4. Indeterminate troponin likely secondary to hypertensive emergency/ETHAN, Cardiology consulted, will follow-up on recommendations 5. Hypertensive emergency, blood pressure improved, remains on nitro drip, continue also on amlodipine 6. Hyperlipidemia, statin 7. Nicotine dependence, replacement 8. Hypomagnesemia, replaced, recheck in am 9. Alcohol use disorder, will continue to monitor on CIWA protocol 10. DVT prophylaxis with heparin subcu Code Visit Inpatient E&M: [id number] Subs Hosp L2
--- NOTE | 2019-01-21 11:13 | PCM.CONS.C ---
Problem List (1) Cardiac enzymes elevated Status: Acute (2) Acute exacerbation of congestive heart failure Status: Suspected Qualifiers: Heart failure type: unspecified Qualified Code(s): I50.9 - Heart failure, unspecified (3) Hypertensive emergency Status: Acute (4) Hyperlipidemia Status: Chronic Qualifiers: Hyperlipidemia type: unspecified Qualified Code(s): E78.5 - Hyperlipidemia, unspecified (5) PAD (peripheral artery disease) Status: Chronic (6) Kidney disease Status: Chronic (7) Acute respiratory failure with hypoxia Status: Acute Reason for Consult Date of Consultation: 01/21/19 History of Present Illness: The patient is a 68 year old white male who claims to have no past cardiovascular history who has been evaluated by his PCP and nephrology for concerns of lipidemia, hypertension, and chronic renal insufficiency superimposed upon a history of peripheral vascular disease who is referred for shortness of breath/dyspnea, abnormal cardiac enzymes, concerns of acute CHF, concerns of acute respiratory failure with hypoxia superimposed upon his aforementioned conditions. He states from a cardiovascular standpoint that he underwent evaluation with an exercise tolerance test greater than a decade ago. To the best of his knowledge this was unremarkable as he required no further cardiac diagnostic studies or therapeutic intervention at that time. He states he has been following with his primary care physician. He is also been following with a hogshead hooper from [place], [place] who evaluates him in [place], [place]. To the best of his knowledge there has been no nephrology follow-up, as he has not kept his appointments, for potentially greater than 1 year. He notes he is also been evaluated by peripheral vascular surgery in the past from [place], [place]. He states there were blockages in his lower extremities. He notes they wanted to perform a dye study however there were concerns in doing so based upon his chronic renal insufficiency. Thus he has never undergone such a procedure. He notes recently he has become progressively short of breath and dyspneic. He has had orthopnea and PND. He has not complained of any significant peripheral pitting edema of the lower extremities. He denies any chest discomfort. He does not believe he has had any loss of consciousness spells. He notes his breathing progressively worsened and he presented to the hospital in [place], [place] for evaluation. He was subsequently transferred to [facility] for further evaluation and care. He was found to be markedly hypertensive with concerns of a hypertensive emergency. He was found to have concerns of acute CHF as well as worsening renal function. He was placed in the ICU for further evaluation and care. He has been noted to have indeterminate troponin I levels. An ECG demonstrated sinus rhythm/sinus tachycardia with ST and T wave changes potentially compatible with anterolateral and inferior subendocardial injury. A chest x-ray based on preliminary inspection suggested the possibility of increased pulmonary vascularity and blunting of the right costophrenic angle. He has been treated medically to assist with his blood pressure control and volume control. He states overall he does feel better this morning than he did upon arrival. [] Past Medical History Allergies/Adverse Reactions: Allergies No Known Allergies Allergy (Verified 01/21/19 03:55) Home Medications: Ambulatory Orders Medication Instructions Recorded Metoprolol Succinate [Toprol Xl] 50 mg PO DAILY 01/21/19 Past Medical History (Chronic Problems): Chronic Problems Kidney disease (Chronic) Tobacco use (Chronic) Hypertension (Chronic) Hyperlipidemia (Chronic) Alcohol abuse (Chronic) PAD (peripheral artery disease) (Chronic) Surgical History: - - Tonsillectomy, appendectomy, left retinal detachment surgery. Psychiatric History: No pertinent psych hx - *Family History Maternal History Items: - - Notes a maternal family history of hypertension. Paternal History Items: - - Father was healthy and unfortunately from complications at an older age from pneumonia but denied any history of heart disease, diabetes or cancer. Lives: Spouse/ Significant Other Smoking Status: Current every day smoker Tobacco Use: Cigarettes Alcohol: Heavy - Notes frequent burping usage, usually mixed, usually 8 drinks nightly. Drugs: None Review of Systems - Review of Systems General: Denies: Fever, Night Sweats, Fatigue Cardiovascular: Reports: Shortness of Breath, Shortness of Breath at Rest, Shortness of Breath with Exertion, Orthopnea, PND. Denies: Chest Discomfort, Peripheral Edema, Palpitations, Lightheadedness, Dizziness, Near Syncope, Syncope Respiratory: Reports: Shortness of Breath. Denies: Cough, Sputum Production, Hemoptysis Gastrointestinal: Denies: Hematemesis, Hematochezia, Melena Genitourinary: Denies: Dysuria, Hematuria Skin: Denies: Rash Subjectve: This is a 68-year-old white male who appears to be resting reasonably comfortably at the moment in no acute distress. Objective: Vital Signs Temp Pulse Resp BP Pulse Ox 98.6 F 90 18 171/86 H 96 01/21/19 07:00 01/21/19 11:10 01/21/19 11:10 01/21/19 07:00 01/21/19 07:14 Oxygen Flow Rate (L/min) 2.5 Oxygen Delivery Method Nasal Cannula Weight: 137 lb 5.568 oz Body Mass Index (BMI) 22.8 Intake and Output for Last 24 Hours 01/19/19 01/20/19 01/21/19 23:59 23:59 23:59 Output Total 500 / 500 Balance -500 / -500 General: Awake, Alert, Oriented x 3, Cooperative, No Acute Distress HEENT: Atraumatic, Normocephalic, PERRL, EOMI, Sclera Non Icteric Oral: Moist Mucosa Neck: Supple, Good ROM, No JVD Lungs: Diminished [place] Bases Cardiovascular: Regular Rhythm, Normal S1, Normal S2 Vascular: No Carotid Bruits Abdomen: Bowel Sounds Present, Soft, Non Tender Extremities: Trace RLE Edema, Trace LLE Edema Neurological: No Focal Motor or Sensory Deficit Psych/Mental Status: Appropriate 01/21/19 03:35: PT 13.6, INR 1.1, APTT 28.3 01/21/19 03:35: Magnesium 1.2 L 01/21/19 03:35: WBC 7.0, RBC 2.82 L, Hgb 11.2 L, Hct 33.9 L, MCV 120.2 H, MCH 39.7 H, MCHC 33.0, Plt Count 144 L, MPV 10.3, Immature Gran % (Auto) 0.400, Neut % (Auto) 93.0 H, Lymph % (Auto) 3.3 L, [place] % (Auto) 3.0, Eos % (Auto) 0.0, Baso % (Auto) 0.3, Absolute Neuts (auto) 6.5, Nucleated RBC % 0 01/21/19 03:35: Sodium 142, Potassium 4.5, Chloride 110 H, Carbon Dioxide 14.0 L, Anion Gap 18 H, BUN 54 H, Creatinine 4.94 H, Est GFR (MDRD) Af Amer 15 L, Est GFR (MDRD) Non-Af 13 L, BUN/Creatinine Ratio 10.9, Glucose 156 H, Calcium 8.3 L, Triglycerides 115, Cholesterol 223 H, LDL Cholesterol 81, VLDL Cholesterol 23, HDL Cholesterol 119 01/21/19 03:35: Phosphorus 5.3 H 01/21/19 03:35: Troponin I 0.279 H 01/21/19 04:22: pH 7.32 L, Bicarbonate Actual 11.3 L, POC Total CO2 12, Base Excess -15 L, O2 Saturation 95, ABG pCO2 22.3 L, ABG pO2 81, Sanchez Test POS 01/21/19 04:30: Urine Color Straw, Urine Clarity Clear, Urine pH 6.0, Ur Specific [place] 1.010, Urine Protein 100 H, Urine Glucose (UA) Normal, Urine Ketones 5 H, Urine Occult Blood 10 H, Urine Nitrite Negative, Urine Bilirubin Negative, Urine Urobilinogen Normal, Ur Leukocyte Esterase Negative, Urine RBC 0-5 SEEN, Urine WBC 0 SEEN 01/21/19 05:00: Troponin I Cancelled 01/21/19 06:45: Troponin I 0.295 H Rhythm: Sinus rhythm EKG: As noted above ECHO: Pending CXR: As noted above Assessment/Plan 1. Abnormal cardiac enzymes The patient does have abnormal cardiac enzymes. The etiology may be multifactorial. This could be related to a combination of underlying cardiovascular disease, hypertension, renal insufficiency, etc. At the moment the patient will continue to be monitored and followed. An echocardiogram has been requested to evaluate the patient's left ventricular wall motion and systolic function. Ideally the patient would be considered for future evaluation with diagnostic cardiac catheterization to evaluate his coronary anatomy. However, at the moment, this would be challenging secondary to his marked renal insufficiency and concerns of IV contrast related nephropathy worsening his renal insufficiency and bringing him to hemodialysis sooner than later. Thus at the present time he will need to continue medical therapy as deemed appropriate. 2. CHF The patient has been found to have a clinical scenario compatible with CHF. It is unclear at this time whether this is systolic or diastolic. The patient will continue medical management with adjustment of medicines as deemed appropriate. He will undergo evaluation with an echocardiogram to assess his systolic/diastolic status. 3. Hypertensive emergency The patient's blood pressure was markedly elevated upon arrival. He is in the ICU and undergoing evaluation care for this. He notes that at home his blood pressures have been running approximately 160 mmHg over 90 mmHg. Thus it does not appear, if those numbers are accurate, that he has been under pressure control at home. The patient's family readily admits that the patient does not care for physicians and does not frequent them and they question whether or not he is following their recommendations. 4. Hyperlipidemia He will continue lipid-lowering therapy as deemed appropriate. 5. Peripheral artery disease He does have some element of peripheral artery disease involving the lower extremities. The details of which are unknown. Depending upon his clinical course this may need to be reassessed. However it does increase his risk of vascular disease and other vascular distributions including cardiac. 6. Renal insufficiency He does have renal insufficiency. He has been evaluated by nephrology as an outpatient. He should be considered for nephrology consultation here to assist in his ongoing evaluation and care. 7. Acute respiratory failure May be secondary to concerns of his volume status from cardiorenal contribution. He appears to be improving with respect to medical management at this time. He will continue evaluation care including input from pulmonology and critical care medicine. Comment: The patient's case has been discussed and reviewed with the patient, his multiple family members present, and Dr. Brunson. This note was generated using a voice recognition system and there may be incorrect words, spelling or punctuation that were not noted when reviewing the office note prior to saving.
[2019-01-21] MEDS: Aspirin E.C. 81 MG Tablet PO (12:00)
[2019-01-21] MEDS: Multivitamins,Ther W-Minerals Tablet 1 TABLET PO (12:00)
[2019-01-21] MEDS: Folic Acid 1 MG Tablet PO (12:00)
[2019-01-21] MEDS: Thiamine Hydrochloride 100 MG Tablet PO ×2 (12:01→18:12)
[2019-01-21 12:18] LABS: Partial Thromboplast Time 144.8 Seconds (24.1-36.2)
[2019-01-21] MEDS: Carvedilol 3.125 MG TABLET PO ×2 (14:39→21:10)
[2019-01-21] MEDS: Isosorbide Mononitrate 30 MG Tablet PO (14:39)
[2019-01-21] MEDS: amLODIPine 2.5 MG Tablet PO (15:59)
--- NOTE | 2019-01-21 17:05 | CON.PCM_ITS ---
Problem List (1) Acute kidney failure Status: Acute (2) Hypertensive emergency Status: Acute Consultation - Renal PCP/ Referring MD: Requesting physician: [] Primary care physician: - History of Present Illness History of Present Illness: The patient is a 68 year old M past medical history of hyperlipidemia, hypertension, chronic kidney disease with unknown baseline, alcoholism. Patient presented to [facility] for progressive shortness of breath . In the emergency room he was found to have elevated blood pressure 220/120. Al so troponin was slightly positive . Patient was admitted to the hospital with hypertensive emergency and was started on nitroglycerin drip . Patient also on heparin drip due to positive troponin . Renal team was consulted for elevated creatinine. Patient used to follow-up with Dr. Ludwig at renal clinic but he lost follow-up 2 years ago . Patient presents with a creatinine around 5 mg a deciliter . Patient was told previously that he will end up with dialysis if he receive IV contrast for arteriogram of his lower extremities . Patient is currently off nitroglycerin drip . Breathing is better . Chest x- ray did not show any pulmonary edema . Review of system ; 12 system review is negative now except mild shortness of breath [] - Allergies Allergies: Allergies No Known Allergies Allergy (Verified 01/21/19 03:55) - Current Medications Current Medications: Current Medications Albuterol Sulfate (Ventolin Aerosols) 2.5 mg INHALATION Q2H PRN PRN PRN Reason: SHORTNESS OF BREATH Albuterol/Ipratropium (Duoneb) 3 ml INHALATION Q4HWA.RT [facility] Last Admin: 01/21/19 14:52 Dose: 3 ml Documented by: Amlodipine Besylate (Norvasc) 2.5 mg PO DAILY [facility] Last Admin: 01/21/19 15:59 Dose: 2.5 mg Documented by: Aspirin (Ecotrin) 81 mg PO DAILY@0800 [facility] Last Admin: 01/21/19 12:00 Dose: 81 mg Documented by: Atorvastatin Calcium (Lipitor) 40 mg PO QHS [facility] Carvedilol (Coreg) 3.125 mg PO BID [facility] Last Admin: 01/21/19 14:39 Dose: 3.125 mg Documented by: Dextrose (D50w Syringe) 0 gm IV X1 PRN; Protocol PRN Reason: Hypoglycemia Folic Acid (Folic Acid) 1 mg PO DAILY@0800 [facility] Stop: 01/23/19 08:01 Last Admin: 01/21/19 12:00 Dose: 1 mg Documented by: Furosemide (Lasix) 40 mg IV Q8 [facility] Last Admin: 01/21/19 14:40 Dose: 40 mg Documented by: Glucagon () 1 mg IM .X1 PRN PRN Reason: Hypoglycemia Heparin Sodium (Porcine) (Heparin Na) 0 unit IV UD PRN; Protocol Heparin Sodium/Dextrose () 25,000 units in 250 mls @ 10 mls/hr IV .Q25H [facility]; Protocol Last Titration: 01/21/19 11:58 Dose: 10 mls/hr Documented by: Isosorbide Mononitrate (Imdur) 30 mg PO DAILY [facility] Last Admin: 01/21/19 14:39 Dose: 30 mg Documented by: Lorazepam (Ativan) 2 mg PO Q2H PRN PRN; Protocol PRN Reason: CIWA score > 8 but <15 Lorazepam (Ativan) 2 mg PO UD PRN; Protocol PRN Reason: CIWA score >/=15. Lorazepam (Ativan) 2 mg IV Q2H PRN PRN; Protocol PRN Reason: CIWA score > 8 but <15 Lorazepam (Ativan) 2 mg IV UD PRN; Protocol PRN Reason: CIWA score >/=15. Melatonin (Melatonin) 3 mg PO QHS PRN PRN PRN Reason: INSOMNIA Methylprednisolone (Solu-Medrol) 40 mg IV Q8 [facility] Last Admin: 01/21/19 14:39 Dose: 40 mg Documented by: Morphine Sulfate () 2 mg IV Q3H PRN PRN PRN Reason: Severe pain (7-10/10) Multivitamins/Minerals ([facility] Minerals) [facility] Admin: 01/21/19 12:00 Dose: 1 tablet Documented by: Nicotine (Nicoderm Cq (Pbkc)) 21 mg TRANSDERM. DAILY [facility] Last Admin: 01/21/19 15:01 Dose: 21 mg Documented by: Nicotine Polacrilex (Rugby Nicotine (Bkc)) 2 mg PO Q2H PRN PRN PRN Reason: Nicotine Craving Nitroglycerin (Nitrostat) 0.4 mg SUBLINGUAL Q5M PRN PRN Reason: CARDIAC/CHEST PAIN Oxycodone HCl (Oxyir) 5 mg PO Q4H PRN PRN PRN Reason: Moderate pain (4-6/10) Sodium Chloride () 10 - 40 ml IV UD PRN PRN Reason: SALINE FLUSH Thi[facility]amin B1) [facility] Stop: 01/23/19 17:01 Last Admin: 01/21/19 12:01 Dose: 100 mg Documented by: - Past Medical History Past Medical History (Chronic Problems): Chronic Problems Kidney disease (Chronic) Tobacco use (Chronic) Hypertension (Chronic) Hyperlipidemia (Chronic) Alcohol abuse (Chronic) PAD (peripheral artery disease) (Chronic) - Past Surgical History Surgical History: - - Tonsillectomy, appendectomy, left retinal detachment surgery. - Social History Smoking Status: Current every day smoker Alcohol: Heavy - Notes frequent burping usage, usually mixed, usually 8 drinks nightly. Drugs: None - Family History Maternal History Items: - - Notes a maternal family history of hypertension. Paternal History Items: - - Father was healthy and unfortunately from complications at an older age from pneumonia but denied any history of heart disease, diabetes or cancer. Patient Problems: Active and Suspected Problems Acute respiratory failure with hypoxia (Acute) Acute exacerbation of congestive heart failure (Suspected) COPD with acute exacerbation (Acute) Acute kidney injury (Suspected) Cardiac enzymes elevated (Acute) Hypertensive emergency (Acute) Acute kidney failure (Acute) Hypertensive emergency (Acute) - Physical Exam General: Alert, Oriented x3 HEENT: Atraumatic Oral: Moist Mucosa Neck: Supple, No JVD Lungs: Clear to auscultation, Normal air movement, No rhonchi, No wheeze Cardiovascular: Regular rate, Regular Rhythm, Normal S1, Normal S2 Abdomen: Bowel Sounds Present, Soft, Non Tender, Non-Distended Extremities: No clubbing, No cyanosis, Edema - +1 edema of lower extremities Musculoskeletal: No Tenderness to Palpation of Joints or Extremities Lymphatic: No Cervical, Supraclavicular, or Inguinal Adenopathy Neurological: Cranial nerves II-XII grossly intact, Neuro grossly intact Psych/Mental Status: Appropriate Vital Signs Temp Pulse Resp BP Pulse Ox 98.3 F 90 16 168/75 H 100 01/21/19 12:00 01/21/19 15:30 01/21/19 14:52 01/21/19 13:00 01/21/19 13:00 Oxygen Flow Rate (L/min) 2 Oxygen Delivery Method Room Air Weight: 62.3 kg Body Mass Index (BMI) 22.8 Intake and Output for Last 24 Hours 01/19/19 01/20/19 01/21/19 23:59 23:59 23:59 Intake Total 435.05 / 435.05 Output Total 950 / 950 Balance -514.95 / -514.95 Microbiology Past 72 Hours 01/21/19 04:01 Respiratory Panel (PCR) - Final Mucosa - Nasopharyngeal Laboratory Tests Past 24 Hrs 01/21/19 01/21/19 01/21/19 03:35 03:35 03:35 WBC 7.0 RBC 2.82 L Hgb 11.2 L Hct 33.9 L MCV 120.2 H MCH 39.7 H MCHC 33.0 RDW Std Deviation 62.3 H RDW Coeff of Anuradha 14.0 Plt Count 144 L MPV 10.3 Immature Gran % (Auto) 0.400 Neut % (Auto) 93.0 H Lymph % (Auto) 3.3 L Hardin % (Auto) 3.0 Eos % (Auto) 0.0 Baso % (Auto) 0.3 Absolute Neuts (auto) 6.5 Absolute Lymphs (auto) 0.23 L Nucleated RBC % 0 PT 13.6 INR 1.1 APTT 28.3 Specimen Type Sample Site pH Bicarbonate Actual POC Total CO2 Base Excess O2 Saturation ABG pCO2 ABG pO2 Sanchez Test O2 Delivery Device Liter Flow Blood Gas Notified Whom Blood Gas Notified Time Sodium Potassium Chloride Carbon Dioxide Anion Gap BUN Creatinine Estim Creat Clear Calc Est GFR (MDRD) Af Amer Est GFR (MDRD) Non-Af BUN/Creatinine Ratio Glucose Calcium Phosphorus Magnesium 1.2 L Troponin I Triglycerides Cholesterol LDL Cholesterol VLDL Cholesterol HDL Cholesterol TSH 0.98 Urine Color Urine Clarity Urine pH Ur Specific [place] Urine Protein Urine Glucose (UA) Urine Ketones Urine Occult Blood Urine Nitrite Urine Bilirubin Urine Urobilinogen Ur Leukocyte Esterase Urine RBC Urine WBC Ur Squamous Epith Cells Urine Bacteria Urine Mucus Ur Random Sodium Urine Creatinine Urine Opiates Screen Urine Methadone Screen Ur Barbiturates Screen Ur Phencyclidine Scrn Ur Amphetamines Screen U Methamphetamin-MDMA U Benzodiazepines Scrn Urine Cocaine Screen U Cannabinoids Screen Ur Drug Screen Comment Ethyl Alcohol 01/21/19 01/21/19 01/21/19 03:35 03:35 03:35 WBC RBC Hgb Hct MCV MCH MCHC RDW Std Deviation RDW Coeff of Anuradha Plt Count MPV Immature Gran % (Auto) Neut % (Auto) Lymph % (Auto) Hardin % (Auto) Eos % (Auto) Baso % (Auto) Absolute Neuts (auto) Absolute Lymphs (auto) Nucleated RBC % PT INR APTT Specimen Type Sample Site pH Bicarbonate Actual POC Total CO2 Base Excess O2 Saturation ABG pCO2 ABG pO2 Sanchez Test O2 Delivery Device Liter Flow Blood Gas Notified Whom Blood Gas Notified Time Sodium 142 Potassium 4.5 Chloride 110 H Carbon Dioxide 14.0 L Anion Gap 18 H BUN 54 H Creatinine 4.94 H Estim Creat Clear Calc 12.45 Est GFR (MDRD) Af Amer 15 L Est GFR (MDRD) Non-Af 13 L BUN/Creatinine Ratio 10.9 Glucose 156 H Calcium 8.3 L Phosphorus 5.3 H Magnesium Troponin I 0.279 H Triglycerides 115 Cholesterol 223 H LDL Cholesterol 81 VLDL Cholesterol 23 HDL Cholesterol 119 TSH Urine Color Urine Clarity Urine pH Ur Specific [place] Urine Protein Urine Glucose (UA) Urine Ketones Urine Occult Blood Urine Nitrite Urine Bilirubin Urine Urobilinogen Ur Leukocyte Esterase Urine RBC Urine WBC Ur Squamous Epith Cells Urine Bacteria Urine Mucus Ur Random Sodium Urine Creatinine Urine Opiates Screen Urine Methadone Screen Ur Barbiturates Screen Ur Phencyclidine Scrn Ur Amphetamines Screen U Methamphetamin-MDMA U Benzodiazepines Scrn Urine Cocaine Screen U Cannabinoids Screen Ur Drug Screen Comment Ethyl Alcohol 01/21/19 01/21/19 01/21/19 04:22 04:30 04:30 WBC RBC Hgb Hct MCV MCH MCHC RDW Std Deviation RDW Coeff of Anuradha Plt Count MPV Immature Gran % (Auto) Neut % (Auto) Lymph % (Auto) Hardin % (Auto) Eos % (Auto) Baso % (Auto) Absolute Neuts (auto) Absolute Lymphs (auto) Nucleated RBC % PT INR APTT Specimen Type ART Sample Site L Radial pH 7.32 L Bicarbonate Actual 11.3 L POC Total CO2 12 Base Excess -15 L O2 Saturation 95 ABG pCO2 22.3 L ABG pO2 81 Sanchez Test POS O2 Delivery Device Nasal Can Liter Flow 4.0 Blood Gas Notified Whom ICU MD Blood Gas Notified Time 415 Sodium Potassium Chloride Carbon Dioxide Anion Gap BUN Creatinine Estim Creat Clear Calc Est GFR (MDRD) Af Amer Est GFR (MDRD) Non-Af BUN/Creatinine Ratio Glucose Calcium Phosphorus Magnesium Troponin I Triglycerides Cholesterol LDL Cholesterol VLDL Cholesterol HDL Cholesterol TSH Urine Color Urine Clarity Urine pH Ur Specific [place] Urine Protein Urine Glucose (UA) Urine Ketones Urine Occult Blood Urine Nitrite Urine Bilirubin Urine Urobilinogen Ur Leukocyte Esterase Urine RBC Urine WBC Ur Squamous Epith Cells Urine Bacteria Urine Mucus Ur Random Sodium Urine Creatinine 17.00 Urine Opiates Screen NEGATIVE Urine Methadone Screen NEGATIVE Ur Barbiturates Screen NEGATIVE Ur Phencyclidine Scrn NEGATIVE Ur Amphetamines Screen NEGATIVE U Methamphetamin-MDMA NEGATIVE U Benzodiazepines Scrn NEGATIVE Urine Cocaine Screen NEGATIVE U Cannabinoids Screen NEGATIVE Ur Drug Screen Comment Ethyl Alcohol 01/21/19 01/21/19 01/21/19 04:30 04:30 05:00 WBC RBC Hgb Hct MCV MCH MCHC RDW Std Deviation RDW Coeff of Anuradha Plt Count MPV Immature Gran % (Auto) Neut % (Auto) Lymph % (Auto) Hardin % (Auto) Eos % (Auto) Baso % (Auto) Absolute Neuts (auto) Absolute Lymphs (auto) Nucleated RBC % PT INR APTT Specimen Type Sample Site pH Bicarbonate Actual POC Total CO2 Base Excess O2 Saturation ABG pCO2 ABG pO2 Sanchez Test O2 Delivery Device Liter Flow Blood Gas Notified Whom Blood Gas Notified Time Sodium Potassium Chloride Carbon Dioxide Anion Gap BUN Creatinine Estim Creat Clear Calc Est GFR (MDRD) Af Amer Est GFR (MDRD) Non-Af BUN/Creatinine Ratio Glucose Calcium Phosphorus Magnesium Troponin I Triglycerides Cholesterol LDL Cholesterol VLDL Cholesterol HDL Cholesterol TSH Urine Color Straw Urine Clarity Clear Urine pH 6.0 Ur Specific [place] 1.010 Urine Protein 100 H Urine Glucose (UA) Normal Urine Ketones 5 H Urine Occult Blood 10 H Urine Nitrite Negative Urine Bilirubin Negative Urine Urobilinogen Normal Ur Leukocyte Esterase Negative Urine RBC 0-5 SEEN Urine WBC 0 SEEN Ur Squamous Epith Cells 0 SEEN Urine Bacteria RARE Urine Mucus 0 SEEN Ur Random Sodium 120 Urine Creatinine Urine Opiates Screen Urine Methadone Screen Ur Barbiturates Screen Ur Phencyclidine Scrn Ur Amphetamines Screen U Methamphetamin-MDMA U Benzodiazepines Scrn Urine Cocaine Screen U Cannabinoids Screen Ur Drug Screen Comment Ethyl Alcohol 0.0 01/21/19 01/21/19 01/21/19 05:00 06:45 11:50 WBC RBC Hgb Hct MCV MCH MCHC RDW Std Deviation RDW Coeff of Anuradha Plt Count MPV Immature Gran % (Auto) Neut % (Auto) Lymph % (Auto) Hardin % (Auto) Eos % (Auto) Baso % (Auto) Absolute Neuts (auto) Absolute Lymphs (auto) Nucleated RBC % PT INR APTT 144.8 H* Specimen Type Sample Site pH Bicarbonate Actual POC Total CO2 Base Excess O2 Saturation ABG pCO2 ABG pO2 Sanchez Test O2 Delivery Device Liter Flow Blood Gas Notified Whom Blood Gas Notified Time Sodium Potassium Chloride Carbon Dioxide Anion Gap BUN Creatinine Estim Creat Clear Calc Est GFR (MDRD) Af Amer Est GFR (MDRD) Non-Af BUN/Creatinine Ratio Glucose Calcium Phosphorus Magnesium Troponin I Cancelled 0.295 H Triglycerides Cholesterol LDL Cholesterol VLDL Cholesterol HDL Cholesterol TSH Urine Color Urine Clarity Urine pH Ur Specific [place] Urine Protein Urine Glucose (UA) Urine Ketones Urine Occult Blood Urine Nitrite Urine Bilirubin Urine Urobilinogen Ur Leukocyte Esterase Urine RBC Urine WBC Ur Squamous Epith Cells Urine Bacteria Urine Mucus Ur Random Sodium Urine Creatinine Urine Opiates Screen Urine Methadone Screen Ur Barbiturates Screen Ur Phencyclidine Scrn Ur Amphetamines Screen U Methamphetamin-MDMA U Benzodiazepines Scrn Urine Cocaine Screen U Cannabinoids Screen Ur Drug Screen Comment Ethyl Alcohol 01/21/19 13:55 WBC RBC Hgb Hct MCV MCH MCHC RDW Std Deviation RDW Coeff of Anuradha Plt Count MPV Immature Gran % (Auto) Neut % (Auto) Lymph % (Auto) Hardin % (Auto) Eos % (Auto) Baso % (Auto) Absolute Neuts (auto) Absolute Lymphs (auto) Nucleated RBC % PT INR APTT Specimen Type Sample Site pH Bicarbonate Actual POC Total CO2 Base Excess O2 Saturation ABG pCO2 ABG pO2 Sanchez Test O2 Delivery Device Liter Flow Blood Gas Notified Whom Blood Gas Notified Time Sodium Potassium Chloride Carbon Dioxide Anion Gap BUN Creatinine Estim Creat Clear Calc Est GFR (MDRD) Af Amer Est GFR (MDRD) Non-Af BUN/Creatinine Ratio Glucose Calcium Phosphorus Magnesium Troponin I 0.160 H Triglycerides Cholesterol LDL Cholesterol VLDL Cholesterol HDL Cholesterol TSH Urine Color Urine Clarity Urine pH Ur Specific [place] Urine Protein Urine Glucose (UA) Urine Ketones Urine Occult Blood Urine Nitrite Urine Bilirubin Urine Urobilinogen Ur Leukocyte Esterase Urine RBC Urine WBC Ur Squamous Epith Cells Urine Bacteria Urine Mucus Ur Random Sodium Urine Creatinine Urine Opiates Screen Urine Methadone Screen Ur Barbiturates Screen Ur Phencyclidine Scrn Ur Amphetamines Screen U Methamphetamin-MDMA U Benzodiazepines Scrn Urine Cocaine Screen U Cannabinoids Screen Ur Drug Screen Comment Ethyl Alcohol POC Glucose 09/02/19 04:24 POC Glucose 171 H Assessment/Plan All Active Problems Acute respiratory failure with hypoxia (Acute) COPD with acute exacerbation (Acute) Cardiac enzymes elevated (Acute) Hypertensive emergency (Acute) Acute kidney failure (Acute) Hypertensive emergency (Acute) 1-acute kidney injury and chronic kidney disease. Unknown baseline. Patient must have advanced kidney disease because he was told previously he will end up in dialysis if he receives IV contrast. Patient is to follow with Dr. Ludwig at renal clinic but then he lost follow-up. Creatinine is around 5 mg deciliter. Patient is making enough amount of urine. No need for hemodialysis. Patient against starting hemodialysis. I agree with the current dose of Lasix to control volume. Avoid nephrotoxic's like IV contrast unless absolutely necessary Please avoid starting respiratory ARB. Check renal function in a.m.. 2-hypertensive emergency. Treated initially with nitroglycerin drip. Now is on Coreg, Norvasc and isosorbide mononitrate. Continue to monitor blood pressure and vital signs in ICU 3-non-ST [place]. Cardiology service is following. Patient is on heparin drip 4-fluid overload from advanced chronic kidney disease. I agree with the current dose of Lasix. Monitor renal function and electrolytes closely with diuresis. Thank you for allowing me to participate in 's care Renal team will continue to follow. Please call if any question or concern at [phone] Discussed with ICU nurse. Felicia Kimball MD
[2019-01-21 18:04] LABS: Partial Thromboplast Time 37.4 Seconds (24.1-36.2)
[2019-01-21] MEDS: Heparin Injection (Vial) 5,000 UNIT/ML VIAL IV (18:13)
[2019-01-21] MEDS: 0.9% NaCl Peripheral Flush Adult/Peds IV ×2 (21:09→21:17)
[2019-01-21] MEDS: Atorvastatin Calcium 40 MG Tablet PO (21:11)
[2019-01-21] MEDS: HEPARIN/D5w 25,000 UNITS 25,000 UNITS/250 ML IV.SOLN. 9 UNITS IV (21:56)
[2019-01-22] VITALS (23 sets, daily range): BP systolic 131–149; BP diastolic 67–79; PULSE 66–100; RESP 12–20; TEMP 36.3–36.9; O2SAT 94–100
[2019-01-22 00:30] LABS: Partial Thromboplast Time 89.6 Seconds (24.1-36.2)
[2019-01-22] MEDS: 0.9% NaCl Peripheral Flush Adult/Peds IV (05:19)
[2019-01-22] MEDS: Furosemide 40 MG/4 ML Vial IV ×3 (05:19→18:06)
[2019-01-22 05:32] LABS: Absolute Lymphocyte Count 0.28 X10^3/uL (0.83-4.51); Absolute Neutrophil Count 11.9 X10^3/uL (2.0-7.7); Basophil# 0.02 X10^3/uL; Basophil% 0.2 % (0-1); Hematocrit 24.1 % (40-54); Hemoglobin 8.3 g/dL (13.0-16.5); Lymphocyte # 0.28 X10^3/ul (4.0); Lymphocyte % 2.2 % (19-41); Mean Corp Hgb Conc 34.4 g/dL (32-36); Mean Corpuscular Hgb 39.5 pg (27.0-32.0); Mean Corpuscular Volume 114.8 fL (80-94); Mean Platelet Vol. 11.2 fl (6.2-12.0); Monocyte# 0.71 X10^3/uL; Monocyte% 5.5 % (0-10); NRBC Flagged by Analyzer 0 % (0-5); Neutrophil # 11.87 X10^3/uL (2.7-7.7); Neutrophil % 91.3 % (47-70); POSITIVE DIFFERENTIAL YES; POSITIVE MORPHOLOGY YES; Platelet Count 119 K/mm3 (150-450); RBC Distribution Width CV 13.7 % (11.6-14.6); RBC Distribution Width SD 57.3 fl (35.1-43.9)
[2019-01-22 05:40] LABS: Anion Gap 13 (5-15); BUN 78 mg/dL (7-18); BUN/Creat Ratio 16.1 RATIO (10-20); Calcium,Total 8.1 mg/dL (8.5-10.1); Chloride 109 mmol/L (98-107); Creatinine, Serum 4.84 mg/dL (0.70-1.30); Differential Indicated SCAN CRITERIA MET; EST Glomerular Filtration Rate 13 mL/min (>60); Est Glom Filt Rate - Afr Amer 16 mL/min (>60); Estimated Creatinine Clearance 12.71 ml/min; Glucose 141 mg/dL (74-106); Magnesium 2.5 mg/dL (1.6-2.6); Potassium 4.2 mmol/L (3.5-5.1); Sodium Level 140 mmol/L (136-145)
--- NOTE | 2019-01-22 05:45 | NURSING ---
Pt fuller catheter removed at this time, tolerated well, pt was given a urinal to use, he however has not urinated as of this time. Fuller was also leaking and had some bleeding around the catheter.
[2019-01-22] MEDS: Ipratropium/Albuterol Sulfate 3 ML AMPUL.NEB INHALATION ×4 (06:36→18:33)
[2019-01-22 07:04] LABS: Differential Comment SCANNED
--- NOTE | 2019-01-22 07:13 | PN_ITS ---
Subjective: Patient did well overnight. No acute issues were reported. Patient reports subjective improvement in overall condition. Patient's current blood pressure is the best of ever had. Patient does not report any tremor or anxiety. Patient denies any chest pain. We have not received any further information from outside facility on patient's baseline renal function. Objective: Echocardiogram shows an EF of 65% with moderate concentric LVH. Unable to quantify RV pressures. No significant valvular abnormalities noted. General: Alert, Oriented x3, Cooperative, No apparent distress, Well developed, Well nourished, - - No conversational dyspnea. HEENT: Atraumatic, PERRLA, EOMI, Normocephalic, - - No scleral icterus or injection noted. Oral: Moist Mucosa, No Gingival or Mucosal Lesions/ Ulcerations Neck: Supple, No JVD, No Nodes, Trachea Midline Lungs: Clear to auscultation, Normal air movement, No rhonchi, No wheeze, No rales Cardiovascular: Regular rate, Regular Rhythm, Normal S1, Normal S2, No murmurs, No rub noted, No Gallop Abdomen: Bowel Sounds Present, Soft, Non Tender, Non-Distended Extremities: No cyanosis, No edema, Capillary Refill Less than 3 Seconds, Clubbing Skin: No rashes, No breakdown Musculoskeletal: No Tenderness to Palpation of Joints or Extremities Lymphatic: No Cervical, Supraclavicular, or Inguinal Adenopathy Neurological: Cranial nerves II-XII grossly intact, Neuro grossly intact, Motor Exam 5/5 strength throughout Psych/Mental Status: Alert and oriented to time, place, person, mood and affect Vital Signs Temp Pulse Resp BP Pulse Ox 36.3 C L 86 13 149/78 H 97 01/22/19 05:00 01/22/19 07:00 01/22/19 07:00 01/22/19 07:00 01/22/19 07:00 Oxygen Flow Rate (L/min) 2 Oxygen Delivery Method Room Air Weight: 61.5 kg Body Mass Index (BMI) 22.8 Intake and Output for Last 24 Hours 01/20/19 01/21/19 01/22/19 23:59 23:59 23:59 Intake Total 822.00 / 1072.00 478.6 / 478.6 Output Total 1450 / 1800 900 / 900 Balance -628.00 / -728.00 -421.4 / -421.4 Labs (Last 48 Hours) 01/21/19 01/21/19 01/21/19 03:35 03:35 03:35 WBC 7.0 RBC 2.82 L Hgb 11.2 L Hct 33.9 L MCV 120.2 H MCH 39.7 H MCHC 33.0 RDW Std Deviation 62.3 H RDW Coeff of Anuradha 14.0 Plt Count 144 L MPV 10.3 Immature Gran % (Auto) 0.400 Neut % (Auto) 93.0 H Lymph % (Auto) 3.3 L Catron % (Auto) 3.0 Eos % (Auto) 0.0 Baso % (Auto) 0.3 Absolute Neuts (auto) 6.5 Absolute Lymphs (auto) 0.23 L Nucleated RBC % 0 Differential Comment PT 13.6 INR 1.1 APTT 28.3 Specimen Type Sample Site pH Bicarbonate Actual POC Total CO2 Base Excess O2 Saturation ABG pCO2 ABG pO2 Sanchez Test O2 Delivery Device Liter Flow Blood Gas Notified Whom Blood Gas Notified Time Sodium Potassium Chloride Carbon Dioxide Anion Gap BUN Creatinine Estim Creat Clear Calc Est GFR (MDRD) Af Amer Est GFR (MDRD) Non-Af BUN/Creatinine Ratio Glucose Calcium Phosphorus Magnesium 1.2 L Troponin I Triglycerides Cholesterol LDL Cholesterol VLDL Cholesterol HDL Cholesterol TSH 0.98 Urine Color Urine Clarity Urine pH Ur Specific [place] Urine Protein Urine Glucose (UA) Urine Ketones Urine Occult Blood Urine Nitrite Urine Bilirubin Urine Urobilinogen Ur Leukocyte Esterase Urine RBC Urine WBC Ur Squamous Epith Cells Urine Bacteria Urine Mucus Ur Random Sodium Urine Creatinine Urine Opiates Screen Urine Methadone Screen Ur Barbiturates Screen Ur Phencyclidine Scrn Ur Amphetamines Screen U Methamphetamin-MDMA U Benzodiazepines Scrn Urine Cocaine Screen U Cannabinoids Screen Ur Drug Screen Comment Ethyl Alcohol POC Glucose 01/21/19 01/21/19 01/21/19 03:35 03:35 03:35 WBC RBC Hgb Hct MCV MCH MCHC RDW Std Deviation RDW Coeff of Anuradha Plt Count MPV Immature Gran % (Auto) Neut % (Auto) Lymph % (Auto) Catron % (Auto) Eos % (Auto) Baso % (Auto) Absolute Neuts (auto) Absolute Lymphs (auto) Nucleated RBC % Differential Comment PT INR APTT Specimen Type Sample Site pH Bicarbonate Actual POC Total CO2 Base Excess O2 Saturation ABG pCO2 ABG pO2 Sanchez Test O2 Delivery Device Liter Flow Blood Gas Notified Whom Blood Gas Notified Time Sodium 142 Potassium 4.5 Chloride 110 H Carbon Dioxide 14.0 L Anion Gap 18 H BUN 54 H Creatinine 4.94 H Estim Creat Clear Calc 12.45 Est GFR (MDRD) Af Amer 15 L Est GFR (MDRD) Non-Af 13 L BUN/Creatinine Ratio 10.9 Glucose 156 H Calcium 8.3 L Phosphorus 5.3 H Magnesium Troponin I 0.279 H Triglycerides 115 Cholesterol 223 H LDL Cholesterol 81 VLDL Cholesterol 23 HDL Cholesterol 119 TSH Urine Color Urine Clarity Urine pH Ur Specific [place] Urine Protein Urine Glucose (UA) Urine Ketones Urine Occult Blood Urine Nitrite Urine Bilirubin Urine Urobilinogen Ur Leukocyte Esterase Urine RBC Urine WBC Ur Squamous Epith Cells Urine Bacteria Urine Mucus Ur Random Sodium Urine Creatinine Urine Opiates Screen Urine Methadone Screen Ur Barbiturates Screen Ur Phencyclidine Scrn Ur Amphetamines Screen U Methamphetamin-MDMA U Benzodiazepines Scrn Urine Cocaine Screen U Cannabinoids Screen Ur Drug Screen Comment Ethyl Alcohol POC Glucose 01/21/19 01/21/19 01/21/19 04:22 04:24 04:30 WBC RBC Hgb Hct MCV MCH MCHC RDW Std Deviation RDW Coeff of Anuradha Plt Count MPV Immature Gran % (Auto) Neut % (Auto) Lymph % (Auto) Catron % (Auto) Eos % (Auto) Baso % (Auto) Absolute Neuts (auto) Absolute Lymphs (auto) Nucleated RBC % Differential Comment PT INR APTT Specimen Type ART Sample Site L Radial pH 7.32 L Bicarbonate Actual 11.3 L POC Total CO2 12 Base Excess -15 L O2 Saturation 95 ABG pCO2 22.3 L ABG pO2 81 Sanchez Test POS O2 Delivery Device Nasal Can Liter Flow 4.0 Blood Gas Notified Whom ICU MD Blood Gas Notified Time 415 Sodium Potassium Chloride Carbon Dioxide Anion Gap BUN Creatinine Estim Creat Clear Calc Est GFR (MDRD) Af Amer Est GFR (MDRD) Non-Af BUN/Creatinine Ratio Glucose Calcium Phosphorus Magnesium Troponin I Triglycerides Cholesterol LDL Cholesterol VLDL Cholesterol HDL Cholesterol TSH Urine Color Urine Clarity Urine pH Ur Specific [place] Urine Protein Urine Glucose (UA) Urine Ketones Urine Occult Blood Urine Nitrite Urine Bilirubin Urine Urobilinogen Ur Leukocyte Esterase Urine RBC Urine WBC Ur Squamous Epith Cells Urine Bacteria Urine Mucus Ur Random Sodium Urine Creatinine Urine Opiates Screen NEGATIVE Urine Methadone Screen NEGATIVE Ur Barbiturates Screen NEGATIVE Ur Phencyclidine Scrn NEGATIVE Ur Amphetamines Screen NEGATIVE U Methamphetamin-MDMA NEGATIVE U Benzodiazepines Scrn NEGATIVE Urine Cocaine Screen NEGATIVE U Cannabinoids Screen NEGATIVE Ur Drug Screen Comment Ethyl Alcohol POC Glucose 171 H 01/21/19 01/21/19 01/21/19 04:30 04:30 04:30 WBC RBC Hgb Hct MCV MCH MCHC RDW Std Deviation RDW Coeff of Anuradha Plt Count MPV Immature Gran % (Auto) Neut % (Auto) Lymph % (Auto) Catron % (Auto) Eos % (Auto) Baso % (Auto) Absolute Neuts (auto) Absolute Lymphs (auto) Nucleated RBC % Differential Comment PT INR APTT Specimen Type Sample Site pH Bicarbonate Actual POC Total CO2 Base Excess O2 Saturation ABG pCO2 ABG pO2 Sanchez Test O2 Delivery Device Liter Flow Blood Gas Notified Whom Blood Gas Notified Time Sodium Potassium Chloride Carbon Dioxide Anion Gap BUN Creatinine Estim Creat Clear Calc Est GFR (MDRD) Af Amer Est GFR (MDRD) Non-Af BUN/Creatinine Ratio Glucose Calcium Phosphorus Magnesium Troponin I Triglycerides Cholesterol LDL Cholesterol VLDL Cholesterol HDL Cholesterol TSH Urine Color Straw Urine Clarity Clear Urine pH 6.0 Ur Specific [place] 1.010 Urine Protein 100 H Urine Glucose (UA) Normal Urine Ketones 5 H Urine Occult Blood 10 H Urine Nitrite Negative Urine Bilirubin Negative Urine Urobilinogen Normal Ur Leukocyte Esterase Negative Urine RBC 0-5 SEEN Urine WBC 0 SEEN Ur Squamous Epith Cells 0 SEEN Urine Bacteria RARE Urine Mucus 0 SEEN Ur Random Sodium 120 Urine Creatinine 17.00 Urine Opiates Screen Urine Methadone Screen Ur Barbiturates Screen Ur Phencyclidine Scrn Ur Amphetamines Screen U Methamphetamin-MDMA U Benzodiazepines Scrn Urine Cocaine Screen U Cannabinoids Screen Ur Drug Screen Comment Ethyl Alcohol POC Glucose 01/21/19 01/21/19 01/21/19 05:00 05:00 06:45 WBC RBC Hgb Hct MCV MCH MCHC RDW Std Deviation RDW Coeff of Anuradha Plt Count MPV Immature Gran % (Auto) Neut % (Auto) Lymph % (Auto) Catron % (Auto) Eos % (Auto) Baso % (Auto) Absolute Neuts (auto) Absolute Lymphs (auto) Nucleated RBC % Differential Comment PT INR APTT Specimen Type Sample Site pH Bicarbonate Actual POC Total CO2 Base Excess O2 Saturation ABG pCO2 ABG pO2 Sanchez Test O2 Delivery Device Liter Flow Blood Gas Notified Whom Blood Gas Notified Time Sodium Potassium Chloride Carbon Dioxide Anion Gap BUN Creatinine Estim Creat Clear Calc Est GFR (MDRD) Af Amer Est GFR (MDRD) Non-Af BUN/Creatinine Ratio Glucose Calcium Phosphorus Magnesium Troponin I Cancelled 0.295 H Triglycerides Cholesterol LDL Cholesterol VLDL Cholesterol HDL Cholesterol TSH Urine Color Urine Clarity Urine pH Ur Specific [place] Urine Protein Urine Glucose (UA) Urine Ketones Urine Occult Blood Urine Nitrite Urine Bilirubin Urine Urobilinogen Ur Leukocyte Esterase Urine RBC Urine WBC Ur Squamous Epith Cells Urine Bacteria Urine Mucus Ur Random Sodium Urine Creatinine Urine Opiates Screen Urine Methadone Screen Ur Barbiturates Screen Ur Phencyclidine Scrn Ur Amphetamines Screen U Methamphetamin-MDMA U Benzodiazepines Scrn Urine Cocaine Screen U Cannabinoids Screen Ur Drug Screen Comment Ethyl Alcohol 0.0 POC Glucose 01/21/19 01/21/19 01/21/19 11:50 13:55 17:35 WBC RBC Hgb Hct MCV MCH MCHC RDW Std Deviation RDW Coeff of Anuradha Plt Count MPV Immature Gran % (Auto) Neut % (Auto) Lymph % (Auto) Catron % (Auto) Eos % (Auto) Baso % (Auto) Absolute Neuts (auto) Absolute Lymphs (auto) Nucleated RBC % Differential Comment PT INR APTT 144.8 H* 37.4 H Specimen Type Sample Site pH Bicarbonate Actual POC Total CO2 Base Excess O2 Saturation ABG pCO2 ABG pO2 Sanchez Test O2 Delivery Device Liter Flow Blood Gas Notified Whom Blood Gas Notified Time Sodium Potassium Chloride Carbon Dioxide Anion Gap BUN Creatinine Estim Creat Clear Calc Est GFR (MDRD) Af Amer Est GFR (MDRD) Non-Af BUN/Creatinine Ratio Glucose Calcium Phosphorus Magnesium Troponin I 0.160 H Triglycerides Cholesterol LDL Cholesterol VLDL Cholesterol HDL Cholesterol TSH Urine Color Urine Clarity Urine pH Ur Specific [place] Urine Protein Urine Glucose (UA) Urine Ketones Urine Occult Blood Urine Nitrite Urine Bilirubin Urine Urobilinogen Ur Leukocyte Esterase Urine RBC Urine WBC Ur Squamous Epith Cells Urine Bacteria Urine Mucus Ur Random Sodium Urine Creatinine Urine Opiates Screen Urine Methadone Screen Ur Barbiturates Screen Ur Phencyclidine Scrn Ur Amphetamines Screen U Methamphetamin-MDMA U Benzodiazepines Scrn Urine Cocaine Screen U Cannabinoids Screen Ur Drug Screen Comment Ethyl Alcohol POC Glucose 01/22/19 01/22/19 01/22/19 00:00 05:20 05:20 WBC 13.0 H RBC 2.10 L Hgb 8.3 L Hct 24.1 L MCV 114.8 H MCH 39.5 H MCHC 34.4 RDW Std Deviation 57.3 H RDW Coeff of Anuradha 13.7 Plt Count 119 L MPV 11.2 Immature Gran % (Auto) 0.800 Neut % (Auto) 91.3 H Lymph % (Auto) 2.2 L Catron % (Auto) 5.5 Eos % (Auto) 0.0 Baso % (Auto) 0.2 Absolute Neuts (auto) 11.9 H Absolute Lymphs (auto) 0.28 L Nucleated RBC % 0 Differential Comment SCANNED PT INR APTT 89.6 H Specimen Type Sample Site pH Bicarbonate Actual POC Total CO2 Base Excess O2 Saturation ABG pCO2 ABG pO2 Sanchez Test O2 Delivery Device Liter Flow Blood Gas Notified Whom Blood Gas Notified Time Sodium 140 Potassium 4.2 Chloride 109 H Carbon Dioxide 18.0 L Anion Gap 13 BUN 78 H Creatinine 4.84 H Estim Creat Clear Calc 12.71 Est GFR (MDRD) Af Amer 16 L Est GFR (MDRD) Non-Af 13 L BUN/Creatinine Ratio 16.1 Glucose 141 H Calcium 8.1 L Phosphorus Magnesium 2.5 Troponin I Triglycerides Cholesterol LDL Cholesterol VLDL Cholesterol HDL Cholesterol TSH Urine Color Urine Clarity Urine pH Ur Specific [place] Urine Protein Urine Glucose (UA) Urine Ketones Urine Occult Blood Urine Nitrite Urine Bilirubin Urine Urobilinogen Ur Leukocyte Esterase Urine RBC Urine WBC Ur Squamous Epith Cells Urine Bacteria Urine Mucus Ur Random Sodium Urine Creatinine Urine Opiates Screen Urine Methadone Screen Ur Barbiturates Screen Ur Phencyclidine Scrn Ur Amphetamines Screen U Methamphetamin-MDMA U Benzodiazepines Scrn Urine Cocaine Screen U Cannabinoids Screen Ur Drug Screen Comment Ethyl Alcohol POC Glucose 01/22/19 07:02 WBC RBC Hgb Hct MCV MCH MCHC RDW Std Deviation RDW Coeff of Anuradha Plt Count MPV Immature Gran % (Auto) Neut % (Auto) Lymph % (Auto) Catron % (Auto) Eos % (Auto) Baso % (Auto) Absolute Neuts (auto) Absolute Lymphs (auto) Nucleated RBC % Differential Comment PT INR APTT Pending Specimen Type Sample Site pH Bicarbonate Actual POC Total CO2 Base Excess O2 Saturation ABG pCO2 ABG pO2 Sanchez Test O2 Delivery Device Liter Flow Blood Gas Notified Whom Blood Gas Notified Time Sodium Potassium Chloride Carbon Dioxide Anion Gap BUN Creatinine Estim Creat Clear Calc Est GFR (MDRD) Af Amer Est GFR (MDRD) Non-Af BUN/Creatinine Ratio Glucose Calcium Phosphorus Magnesium Troponin I Triglycerides Cholesterol LDL Cholesterol VLDL Cholesterol HDL Cholesterol TSH Urine Color Urine Clarity Urine pH Ur Specific [place] Urine Protein Urine Glucose (UA) Urine Ketones Urine Occult Blood Urine Nitrite Urine Bilirubin Urine Urobilinogen Ur Leukocyte Esterase Urine RBC Urine WBC Ur Squamous Epith Cells Urine Bacteria Urine Mucus Ur Random Sodium Urine Creatinine Urine Opiates Screen Urine Methadone Screen Ur Barbiturates Screen Ur Phencyclidine Scrn Ur Amphetamines Screen U Methamphetamin-MDMA U Benzodiazepines Scrn Urine Cocaine Screen U Cannabinoids Screen Ur Drug Screen Comment Ethyl Alcohol POC Glucose Microbiology 01/21/19 04:01 Mucosa - Nasopharyngeal Respiratory Panel (PCR) - Final Clinical Impression(s) from Imaging Studies Renal Ultrasound 01/21/19 02:11 IMPRESSION: Nonvisualization of the right kidney. Normal left kidney CT may be helpful for further evaluation as might radionuclide renal scan if clinically indicated Electronically Signed: Chris Hodge MD at 17:43 EDT , Service support , Chest X-Ray 01/21/19 05:55 IMPRESSION: Normal x-ray examination of the chest. Electronically Signed: Lissette White at 10:42 EDT Tel , Service support , Medical Necessity - Tobacco Use Smoking Status: Current every day smoker Tobacco Use: Cigarettes Assessment/Plan All Active Problems Acute respiratory failure with hypoxia (Acute) COPD with acute exacerbation (Acute) Cardiac enzymes elevated (Acute) Hypertensive emergency (Acute) Acute kidney failure (Acute) Hypertensive emergency (Acute) RECOMMENDATIONS: 1. Continue current antihypertensive regimen 2. Okay to discontinue BiPAP therapy. Walking oximetry prior to discharge 3. Attempt to obtain old records about renal function 4. Avoid nephrotoxic medications 5. Discontinue steroid therapy. 6. Monitor for signs and symptoms of withdrawal 7. Diuretic therapy per cardiology 8. Okay to leave the intensive care unit from my perspective IMPRESSIONS: 1. Acute hypoxic respiratory failure secondary to probable flash pulmonary edema Patient with significant elevation of blood pressure in the ER [facility] in the setting of reported chronic renal disease. Patient was given IV Lasix and BiPAP with good response. Patient appears to have had flash pulmonary edema and is responded well to diuretic therapy. Likely okay to discontinue BiPAP from my perspective. Patient should have a walking oximetry prior to discharge 2. Possible COPD exacerbation Patient does have a history of significant smoking. Given rapid response to diuretic therapy, it is unclear that this truly represents a COPD exacerbation. Patient should still have a pulmonary function test as an outpatient for quantification and clarification of lung function. 3. Possible acute on chronic kidney disease Patient reports that I was informed I may need dialysis. We will attempt to obtain old information from outside facility. Hold nephrotoxic medications. Renal ultrasound shows no right kidney. 4. Hypertensive emergency Unclear etiology. Patient appears to have a history of noncompliance and reports only being on a beta-cristhian. Patient responded to Lasix and nitroglycerin. Lead pressure much improved on current medications. Would defer to renal on further alterations. 5. Tobacco abuse/hyperlipidemia/reported alcohol abuse Complicates care, management, recovery and prognosis. Will need to monitor for withdrawal. Patient has been placed on thiamine and folate. Code Visit Inpatient E&M: 84988 Subs Hosp L3
--- NOTE | 2019-01-22 07:21 | PN_ITS ---
Patient Problems: Active and Suspected Problems Acute respiratory failure with hypoxia (Acute) Acute exacerbation of congestive heart failure (Suspected) COPD with acute exacerbation (Acute) Acute kidney injury (Suspected) Cardiac enzymes elevated (Acute) Hypertensive emergency (Acute) Acute kidney failure (Acute) Hypertensive emergency (Acute) Subjective: Patient was seen and examined. Appreciate all consults. No acute events overnight. Blood pressure has improved. Off the nitro drip. Denies any dizziness or chest pain or headaches Diuresing well. Objective: Physical exam: General: Alert, Oriented x3, Cooperative, No apparent distress, off oxygen HEENT: Atraumatic, PERRLA, EOMI, Normocephalic Oral: Moist Mucosa Neck: Supple Lungs: Clear to auscultation, Normal air movement Cardiovascular: Regular rate, Regular Rhythm, Normal S1, Normal S2 Abdomen: Bowel Sounds Present, Soft, Non Tender, Non-Distended, No Hepato- splenomegaly Extremities: Edema - Bilateral pedal +1 Skin: No rashes, No breakdown Musculoskeletal: No Tenderness to Palpation of Joints or Extremities Lymphatic: No Cervical, Supraclavicular, or Inguinal Adenopathy Neurological: Cranial nerves II-XII grossly intact, Neuro grossly intact Psych/Mental Status: Normal Affect, Appropriate Vitals/I&O's: Vital Signs Temp Pulse Resp BP Pulse Ox 97.3 F L 86 13 149/78 H 97 01/22/19 05:00 01/22/19 07:00 01/22/19 07:00 01/22/19 07:00 01/22/19 07:00 Oxygen Flow Rate (L/min) 2 Oxygen Delivery Method Room Air Weight: 61.5 kg Body Mass Index (BMI) 22.8 Intake and Output for Last 24 Hours 01/20/19 01/21/19 01/22/19 23:59 23:59 23:59 Intake Total 822.00 / 1072.00 478.6 / 478.6 Output Total 1450 / 1800 900 / 900 Balance -628.00 / -728.00 -421.4 / -421.4 Microbiology Past 72 Hours 01/21/19 04:01 Mucosa - Nasopharyngeal Respiratory Panel (PCR) - Final Laboratory Results 01/21/19 03:35: Troponin I 0.279 H 01/21/19 06:45: Troponin I 0.295 H 01/21/19 11:50: APTT 144.8 H* 01/21/19 13:55: Troponin I 0.160 H 01/21/19 17:35: APTT 37.4 H 01/22/19 00:00: APTT 89.6 H 01/22/19 05:20: WBC 13.0 H, RBC 2.10 L, Hgb 8.3 L, Hct 24.1 L, MCV 114.8 H, MCH 39.5 H, MCHC 34.4, RDW Std Deviation 57.3 H, RDW Coeff of Anuradha 13.7, Plt Count 119 L, MPV 11.2, Immature Gran % (Auto) 0.800, Neut % (Auto) 91.3 H, Lymph % (Auto) 2.2 L, Trigg % (Auto) 5.5, Eos % (Auto) 0.0, Baso % (Auto) 0.2, Absolute Neuts (auto) 11.9 H, Absolute Lymphs (auto) 0.28 L, Nucleated RBC % 0, Differential Comment SCANNED 01/22/19 05:20: Sodium 140, Potassium 4.2, Chloride 109 H, Carbon Dioxide 18.0 L , Anion Gap 13, BUN 78 H, Creatinine 4.84 H, Estim Creat Clear Calc 12.71, Est GFR (MDRD) Af Amer 16 L, Est GFR (MDRD) Non-Af 13 L, BUN/Creatinine Ratio 16.1, Glucose 141 H, Calcium 8.1 L, Magnesium 2.5 01/22/19 07:02: APTT Pending Current Medications Albuterol Sulfate (Ventolin Aerosols) 2.5 mg INHALATION Q2H PRN PRN PRN Reason: SHORTNESS OF BREATH Albuterol/Ipratropium (Duoneb) 3 ml INHALATION Q4HWA.RT [facility] Last Admin: 01/22/19 06:36 Dose: 3 ml Documented by: Amlodipine Besylate (Norvasc) 2.5 mg PO DAILY [facility] Last Admin: 01/21/19 15:59 Dose: 2.5 mg Documented by: Aspirin (Ecotrin) 81 mg PO DAILY@0800 [facility] Last Admin: 01/21/19 12:00 Dose: 81 mg Documented by: Atorvastatin Calcium (Lipitor) 40 mg PO QHS [facility] Last Admin: 01/21/19 21:11 Dose: 40 mg Documented by: Carvedilol (Coreg) 3.125 mg PO BID [facility] Last Admin: 01/21/19 21:10 Dose: 3.125 mg Documented by: Dextrose (D50w Syringe) 0 gm IV X1 PRN; Protocol PRN Reason: Hypoglycemia Folic Acid (Folic Acid) 1 mg PO DAILY@0800 [facility] Stop: 01/23/19 08:01 Last Admin: 01/21/19 12:00 Dose: 1 mg Documented by: Furosemide (Lasix) 40 mg IV Q8 [facility] Last Admin: 01/22/19 05:19 Dose: 40 mg Documented by: Glucagon () 1 mg IM .X1 PRN PRN Reason: Hypoglycemia Heparin Sodium (Porcine) (Heparin Na) 0 unit IV UD PRN; Protocol Last Admin: 01/21/19 18:13 Dose: 3,000 unit Documented by: Heparin Sodium/Dextrose () 25,000 units in 250 mls @ 10 mls/hr IV .Q25H [facility]; Protocol Last Titration: 01/22/19 05:28 Dose: 8 mls/hr Documented by: Isosorbide Mononitrate (Imdur) 30 mg PO DAILY [facility] Last Admin: 01/21/19 14:39 Dose: 30 mg Documented by: Lorazepam (Ativan) 2 mg PO Q2H PRN PRN; Protocol PRN Reason: CIWA score > 8 but <15 Lorazepam (Ativan) 2 mg PO UD PRN; Protocol PRN Reason: CIWA score >/=15. Lorazepam (Ativan) 2 mg IV Q2H PRN PRN; Protocol PRN Reason: CIWA score > 8 but <15 Lorazepam (Ativan) 2 mg IV UD PRN; Protocol PRN Reason: CIWA score >/=15. Melatonin (Melatonin) 3 mg PO QHS PRN PRN PRN Reason: INSOMNIA Morphine Sulfate () 2 mg IV Q3H PRN PRN PRN Reason: Severe pain (7-10/10) Multivitamins/Minerals (Multivitamin With Minerals) 1 tablet PO DAILYCM [facility] Last Admin: 01/21/19 12:00 Dose: 1 tablet Documented by: Nicotine (Nicoderm Cq (Pbkc)) 21 mg TRANSDERM. DAILY [facility] Last Admin: 01/21/19 15:01 Dose: 21 mg Documented by: Nicotine Polacrilex ([place] Nicotine (Bkc)) 2 mg PO Q2H PRN PRN PRN Reason: Nicotine Craving Nitroglycerin (Nitrostat) 0.4 mg SUBLINGUAL Q5M PRN PRN Reason: CARDIAC/CHEST PAIN Oxycodone HCl (Oxyir) 5 mg PO Q4H PRN PRN PRN Reason: Moderate pain (4-6/10) Sodium Chloride () 10 - 40 ml IV UD PRN PRN Reason: SALINE FLUSH Last Admin: 01/22/19 05:19 Dose: 40 ml Documented by: Thiamine HCl (Vitamin B1) [facility] Stop: 01/23/19 17:01 Last Admin: 01/21/19 18:12 Dose: 100 mg Documented by: Medical Necessity - Tobacco Use Smoking Status: Current every day smoker Tobacco Use: Cigarettes Assessment/Plan All Active Problems Acute respiratory failure with hypoxia (Acute) COPD with acute exacerbation (Acute) Cardiac enzymes elevated (Acute) Hypertensive emergency (Acute) Acute kidney failure (Acute) Hypertensive emergency (Acute) 68-year-old male with past medical history of alcohol/tobacco abuse, hypertension, hyperlipidemia, unknown CKD stage who comes in with progressive shortness of breath and has been managed as acute hypoxic respiratory insufficiency/acute COPD exacerbation/ETHAN/acute decompensated heart failure 1. Acute hypoxic respiratory insufficiency, multifactorial -acute decompensated diastolic CHF/acute COPD exacerbation, resolved 2. Acute decompensated diastolic CHF, improved on Lasix, diuresing well, will continue Lasix IV 40mg BID, cardiology following 3. ETHAN versus CKD, likely secondary to acute decompensated diastolic CHF, Cr is 4.84, down from 4.94, Renal ultrasound shows normal left kidney, absent right kidney Records yet to be obtained from previous [facility] in am 4. Indeterminate troponin likely secondary to hypertensive emergency/ETHAN, Cardiology following, on aspirin, statin, carvedilol, Imdur. 5. Hypertensive emergency, improved, blood pressure is much better, off nitro drip, will continue on amlodipine 6. Hyperlipidemia, on statin 7. Nicotine dependence, on replacement 8. Hypomagnesemia, resolved, magnesium is 2.5 9. Alcohol use disorder, will continue to monitor on CIWA protocol 10. DVT prophylaxis with heparin subcu 11. Disposition: Transfer to PCU, monitor for 1 to 2 days. Possible discharge when renal function appears to be stable or improved. Code Visit Inpatient E&M: 90038 Subs Hosp L2
[2019-01-22 07:24] LABS: Partial Thromboplast Time 46.3 Seconds (24.1-36.2)
--- NOTE | 2019-01-22 08:23 | PN.CARD_ITS ---
Subjectve: The patient is awake and alert. He states he feels somewhat better. Objective: Vital Signs Temp Pulse Resp BP Pulse Ox 97.3 F L 86 13 149/78 H 97 01/22/19 05:00 01/22/19 07:00 01/22/19 07:00 01/22/19 07:00 01/22/19 07:00 Oxygen Flow Rate (L/min) 2 Oxygen Delivery Method Room Air Weight: 135 lb 9.349 oz Body Mass Index (BMI) 22.8 Intake and Output for Last 24 Hours 01/20/19 01/21/19 01/22/19 23:59 23:59 23:59 Intake Total 822.00 / 1072.00 501.53 / 501.53 Output Total 1450 / 1800 900 / 900 Balance -628.00 / -728.00 -398.47 / -398.47 General: Awake, Alert, Oriented x 3, Cooperative, No Acute Distress HEENT: Atraumatic, Normocephalic, PERRL, EOMI, Sclera Non Icteric Oral: Moist Mucosa Neck: Supple, Good ROM, No JVD Lungs: Diminished [place] Bases Cardiovascular: Regular Rhythm, Normal S1, Normal S2 Abdomen: Bowel Sounds Present, Soft, Non Tender Extremities: No edema Psych/Mental Status: Appropriate 01/21/19 11:50: APTT 144.8 H* 01/21/19 13:55: Troponin I 0.160 H 01/21/19 17:35: APTT 37.4 H 01/22/19 00:00: APTT 89.6 H 01/22/19 05:20: WBC 13.0 H, RBC 2.10 L, Hgb 8.3 L, Hct 24.1 L, MCV 114.8 H, MCH 39.5 H, MCHC 34.4, Plt Count 119 L, MPV 11.2, Immature Gran % (Auto) 0.800, Neut % (Auto) 91.3 H, Lymph % (Auto) 2.2 L, [place] % (Auto) 5.5, Eos % (Auto) 0.0, Baso % (Auto) 0.2, Absolute Neuts (auto) 11.9 H, Nucleated RBC % 0 01/22/19 05:20: Sodium 140, Potassium 4.2, Chloride 109 H, Carbon Dioxide 18.0 L , Anion Gap 13, BUN 78 H, Creatinine 4.84 H, Est GFR (MDRD) Af Amer 16 L, Est GFR (MDRD) Non-Af 13 L, BUN/Creatinine Ratio 16.1, Glucose 141 H, Calcium 8.1 L, Magnesium 2.5 01/22/19 07:02: APTT 46.3 H Rhythm: Sinus rhythm ECHO: Interpretation Summary The study was technically difficult. Contrast injection was performed. Left ventricular systolic function is normal. The estimated ejection fraction is 65 %. Moderate concentric left ventricular hypertrophy. The left atrium is mildly enlarged. There is mild mitral annular calcification. Trivial mitral valve insufficiency. Trivial tricuspid valve insufficiency. Mild focal aortic valve calcification. Trivial pulmonic valve insufficiency. Epicardial fat. Unable to estimate RV systolic pressure/pulmonary artery pressure due to technically difficult study. There is evidence of diastolic dysfunction. Medical Necessity - Tobacco Use Smoking Status: Current every day smoker Tobacco Use: Cigarettes Assessment/Plan 1. Abnormal cardiac enzymes The patient does have abnormal cardiac enzymes. The etiology may be multifactorial. This could be related to a combination of underlying cardiovascular disease, hypertension, renal insufficiency, etc. At the moment the patient will continue to be monitored and followed. His echocardiogram is as noted above. Ideally the patient would be considered for future evaluation with diagnostic cardiac catheterization to evaluate his coronary anatomy. However, at the moment, this would be challenging secondary to his marked renal insufficiency and concerns of IV contrast related nephropathy worsening his renal insufficiency and bringing him to hemodialysis sooner than later. Thus at the present time he will need to continue medical therapy as deemed a ppropriate. 2. CHF The patient has been found to have a clinical scenario compatible with CHF. Based upon his echocardiographic findings this may be acute diastolic mediated CHF superimposed upon his underlying renal insufficiency. The patient will continue medical management with adjustment of medicines as deemed appropriate. 3. Hypertensive emergency The patient's blood pressure was markedly elevated upon arrival. He is in the ICU and undergoing evaluation care for this. He notes that at home his blood pressures have been running approximately 160 mmHg over 90 mmHg. Thus it does not appear, if those numbers are accurate, that he has been under pressure control at home. He will continue antihypertensive therapy with further adjustment as deemed appropriate taken into consideration his renal insufficiency. 4. Hyperlipidemia He will continue lipid-lowering therapy as deemed appropriate. 5. Peripheral artery disease He does have some element of peripheral artery disease involving the lower extremities. The details of which are unknown. Depending upon his clinical course this may need to be reassessed. However it does increase his risk of vascular disease and other vascular distributions including cardiac. 6. Renal insufficiency He does have renal insufficiency. He has been evaluated by nephrology as an outpatient. He should be considered for nephrology consultation here to assist in his ongoing evaluation and care. 7. Acute respiratory failure May be secondary to concerns of his volume status from cardiorenal contribution. He appears to be improving with respect to medical management at this time. He will continue evaluation care including input from pulmonology and critical care medicine. Comment: The patient's case has been discussed and reviewed with the patient. This note was generated using a voice recognition system and there may be incorrect words, spelling or punctuation that were not noted when reviewing the office note prior to saving.
[2019-01-22] MEDS: Aspirin E.C. 81 MG Tablet PO (08:24)
[2019-01-22] MEDS: Multivitamins,Ther W-Minerals Tablet 1 TABLET PO (08:24)
[2019-01-22] MEDS: Folic Acid 1 MG Tablet PO (08:24)
[2019-01-22] MEDS: Thiamine Hydrochloride 100 MG Tablet PO ×2 (08:24→18:06)
[2019-01-22] MEDS: Heparin Injection (Vial) 5,000 UNIT/ML VIAL IV (08:25)
--- NOTE | 2019-01-22 09:49 | US_ITS ---
STUDY: RENAL ULTRASOUND - COMPLETE REASON FOR EXAM: Male, 68 years old. Acute renal failure. TECHNIQUE: Ultrasound evaluation of the kidneys was performed with real-time and static ji-scale imaging. COMPARISON: Comparison is made with prior examination dated January 21, 2019. FINDINGS: RIGHT KIDNEY: with moderate renal atrophy. The right kidney measures 6.3 cm x 3.1 cm x 3.0 cm. There is diffuse thinning of the renal cortex. The renal cortex measures 0.4 cm. There is no right renal mass or cyst. There are no right renal calculi. There is no right hydronephrosis. DISTAL RIGHT URETER: There is non-visualization of the distal right ureter. There is no demonstrated right ureterovesical junction calculus. There is no demonstrated right ureteral jet. LEFT KIDNEY: Normal location of the left kidney, which is normal in size. The left kidney measures 9 cm x 4.1 cm x 4.8 cm. There is a normal cortex of the left kidney. The renal cortex measures 1.2 cm. There is a 1.8 cm x 1.2 cm x 1.3 cm cyst. There are no left renal calculi. There is no left hydronephrosis. DISTAL LEFT URETER: There is non-visualization of the distal left ureter. There is no demonstrated left ureterovesical junction calculus. There is a visualized left ureteral jet. BLADDER: The distended urinary bladder has a volume of 224 ml. There is a normal wall thickness of the distended urinary bladder. There is no demonstrated mass within the urinary bladder. There are no demonstrated bladder calculi. Incidental note is made of a 1.3 cm x 1.3 cm x 1.3 cm right hepatic cyst. US/Kidney and Bladder IMPRESSION: Atrophy of the right kidney. Small cyst in the left kidney. Electronically Signed: Davis Najera, at 11:17 EDT , Service support ,
[2019-01-22] MEDS: Carvedilol 3.125 MG TABLET 6.25 MG PO ×2 (09:52→22:11)
[2019-01-22] MEDS: amLODIPine 2.5 MG Tablet PO (09:53)
[2019-01-22] MEDS: Isosorbide Mononitrate 30 MG Tablet PO (09:53)
--- NOTE | 2019-01-22 13:29 | PCM.PN.REN ---
Patient Problems: Active and Suspected Problems Acute respiratory failure with hypoxia (Acute) Acute exacerbation of congestive heart failure (Suspected) COPD with acute exacerbation (Acute) Acute kidney injury (Suspected) Cardiac enzymes elevated (Acute) Hypertensive emergency (Acute) Acute kidney failure (Acute) Hypertensive emergency (Acute) Subjective: no new events complains of dizziness - Physical Exam General: Alert, Oriented x3, Cooperative HEENT: Atraumatic, PERRLA, EOMI, Normocephalic Neck: Supple, No JVD, Negative Carotid Bruits Lungs: Clear to auscultation, Normal air movement Cardiovascular: Regular rate, No murmurs Abdomen: Bowel Sounds Present, Soft, Non Tender Extremities: No edema, Capillary Refill Less than 3 Seconds Skin: No rashes, No breakdown Musculoskeletal: No Tenderness to Palpation of Joints or Extremities Neurological: Cranial nerves II-XII grossly intact Psych/Mental Status: Normal Affect, Appropriate Vital Signs Temp Pulse Resp BP Pulse Ox 97.8 F 91 15 135/73 H 98 01/22/19 12:46 01/22/19 12:46 01/22/19 12:46 01/22/19 12:46 01/22/19 12:46 Oxygen Flow Rate (L/min) 2 Oxygen Delivery Method Room Air Weight: 61.5 kg Body Mass Index (BMI) 22.8 Intake and Output for Last 24 Hours 01/20/19 01/21/19 01/22/19 23:59 23:59 23:59 Intake Total 674.33 / 924.33 973.03 / 973.03 Output Total 1450 / 1800 1150 / 1150 Balance -775.67 / -875.67 -176.97 / -176.97 Microbiology Past 72 Hours 01/21/19 04:30 Urine Culture - Preliminary Urine Catheter - Jefferson Culture exhibits no growth. 01/21/19 04:01 Respiratory Panel (PCR) - Final Mucosa - Nasopharyngeal Laboratory Tests Past 24 Hrs 01/21/19 01/21/19 01/22/19 13:55 17:35 00:00 WBC RBC Hgb Hct MCV MCH MCHC RDW Std Deviation RDW Coeff of Anuradha Plt Count MPV Immature Gran % (Auto) Neut % (Auto) Lymph % (Auto) [place] % (Auto) Eos % (Auto) Baso % (Auto) Absolute Neuts (auto) Absolute Lymphs (auto) Nucleated RBC % Differential Comment APTT 37.4 H 89.6 H Sodium Potassium Chloride Carbon Dioxide Anion Gap BUN Creatinine Estim Creat Clear Calc Est GFR (MDRD) Af Amer Est GFR (MDRD) Non-Af BUN/Creatinine Ratio Glucose Calcium Magnesium Troponin I 0.160 H 01/22/19 01/22/19 01/22/19 05:20 05:20 07:02 WBC 13.0 H RBC 2.10 L Hgb 8.3 L Hct 24.1 L MCV 114.8 H MCH 39.5 H MCHC 34.4 RDW Std Deviation 57.3 H RDW Coeff of Anuradha 13.7 Plt Count 119 L MPV 11.2 Immature Gran % (Auto) 0.800 Neut % (Auto) 91.3 H Lymph % (Auto) 2.2 L [place] % (Auto) 5.5 Eos % (Auto) 0.0 Baso % (Auto) 0.2 Absolute Neuts (auto) 11.9 H Absolute Lymphs (auto) 0.28 L Nucleated RBC % 0 Differential Comment SCANNED APTT 46.3 H Sodium 140 Potassium 4.2 Chloride 109 H Carbon Dioxide 18.0 L Anion Gap 13 BUN 78 H Creatinine 4.84 H Estim Creat Clear Calc 12.71 Est GFR (MDRD) Af Amer 16 L Est GFR (MDRD) Non-Af 13 L BUN/Creatinine Ratio 16.1 Glucose 141 H Calcium 8.1 L Magnesium 2.5 Troponin I Medical Necessity - Tobacco Use Smoking Status: Current every day smoker Tobacco Use: Cigarettes Assessment/Plan All Active Problems Acute respiratory failure with hypoxia (Acute) COPD with acute exacerbation (Acute) Cardiac enzymes elevated (Acute) Hypertensive emergency (Acute) Acute kidney failure (Acute) Hypertensive emergency (Acute) 1-CKD stage 5 likely. Cr is about the same. called Dr stauffer office. he has advanced CKD even 2 years ago. 2-hypertensive emergency. Treated initially with nitroglycerin drip. Now is on Coreg, Norvasc and isosorbide mononitrate. Bp is better 3-non-ST [place]. Cardiology service is following. Patient is on heparin drip 4-fluid overload from advanced chronic kidney disease. better
--- NOTE | 2019-01-22 14:28 | CASEMGMT ---
RN CM Assessment. Presentation: CHF, resp failure, Acute Renal Failure, elevated Troponins. Hx of tobacco abuse, COPD Intro role of CM and purpose of RN CM assessment to patient in room. Pt is awake, alert and able to participate in assessment. Demographics, PCP and Pharmacy verified. Pt states he lives @ home with his girlfriend Marguerite Sin. PCP: Dr. Heath Brown, [place], [place] Specialists: Dr. Blackwell, Dr. Humphrey [facility] [place] Insurance: [facility] Prescription Benefit: yes LNOK: Pt requests significant other, Marguerite Sin be listed. Called to Registration to add as person to notify Living Arrangements: Lives in two story home with [address]. States bedroom, bath is upstairs. Pt has been having more difficulty with activity, but states he is still independent with ADL. Pt states Marguerite works in his business which is attached to home and is available if needed. Transportation: Marguerite Sin drives DME: cane. Pt used walker with PT/OT. RN CM let pt know we could have walker ordered for him. Pt plans to borrow his sister's walker. C: Discussed Home Health with patient especially for PT/OT as therapist is recommending further skilled therapy prior to returning home. Pt would like to consider, states he hopes his ambulation will improve as he begins to feel better. Patient DC goals: Home DC PLAN: Home, recommended Home Health for patient on dc, he will consider. If pt is agreeable, will give him list of area agencies. Pt lives in [place]. Keon CHURCHILLN RN ACM
--- NOTE | 2019-01-22 18:32 | NURSING ---
Reviewed Kim Holloway's charting.
[2019-01-22] MEDS: Atorvastatin Calcium 40 MG Tablet PO (22:10)
[2019-01-23] VITALS (8 sets, daily range): BP systolic 123–147; BP diastolic 59–78; PULSE 72–93; RESP 16–18; TEMP 36.6–37.1; O2SAT 94–100
[2019-01-23 06:34] LABS: Albumin, Serum 2.5 g/dL (3.2-5.0); BUN 97 mg/dL (7-18); BUN/Creat Ratio 17.9 RATIO (10-20); Calcium,Total 8.1 mg/dL (8.5-10.1); Chloride 107 mmol/L (98-107); Creatinine, Serum 5.41 mg/dL (0.70-1.30); EST Glomerular Filtration Rate 11 mL/min (>60); Est Glom Filt Rate - Afr Amer 14 mL/min (>60); Estimated Creatinine Clearance 11.26 ml/min; Glucose 109 mg/dL (74-106); Phosphorus 4.8 mg/dL (2.5-4.9); Potassium 3.6 mmol/L (3.5-5.1); Sodium Level 139 mmol/L (136-145)
[2019-01-23] MEDS: Ipratropium/Albuterol Sulfate 3 ML AMPUL.NEB INHALATION (06:39)
[2019-01-23] MEDS: Thiamine Hydrochloride 100 MG Tablet PO (07:55)
[2019-01-23] MEDS: Multivitamins,Ther W-Minerals Tablet 1 TABLET PO (07:55)
[2019-01-23] MEDS: Folic Acid 1 MG Tablet PO (07:55)
[2019-01-23] MEDS: Aspirin E.C. 81 MG Tablet PO (07:55)
[2019-01-23] MEDS: amLODIPine 2.5 MG Tablet PO (09:01)
[2019-01-23] MEDS: Carvedilol 3.125 MG TABLET 6.25 MG PO (09:02)
[2019-01-23] MEDS: Furosemide 40 MG/4 ML Vial IV (09:02)
[2019-01-23] MEDS: Isosorbide Mononitrate 30 MG Tablet PO (09:02)
--- NOTE | 2019-01-23 10:03 | PCM.PN.INT ---
Subjective: Patient did well overnight. Patient has remained on room air. Patient is reporting some dizziness associated with change in body position and states I have never had a blood pressure this low. Patient denies any focal neurologic issues and states he is fine as long as I stay still. General: Alert, Oriented x3, Cooperative, No apparent distress, Well developed, Well nourished, - - Speaking in full sentences HEENT: Atraumatic, PERRLA, EOMI, Normocephalic, - - No scleral icterus or injection noted Oral: Moist Mucosa, No Gingival or Mucosal Lesions/ Ulcerations Neck: Supple, No JVD, No Nodes, Trachea Midline Lungs: Clear to auscultation, Normal air movement, No rhonchi, No wheeze, No rales Cardiovascular: Regular rate, Regular Rhythm, Normal S1, Normal S2, No murmurs, No rub noted, No Gallop Abdomen: Bowel Sounds Present, Soft, Non Tender, Non-Distended Extremities: No clubbing, No cyanosis, No edema Skin: No rashes, No breakdown Musculoskeletal: No Tenderness to Palpation of Joints or Extremities Lymphatic: No Cervical, Supraclavicular, or Inguinal Adenopathy Neurological: Cranial nerves II-XII grossly intact, Neuro grossly intact, Motor Exam 5/5 strength throughout Psych/Mental Status: Alert and oriented to time, place, person, mood and affect Vital Signs Temp Pulse Resp BP Pulse Ox 36.6 C 93 18 123/59 H 98 01/23/19 08:59 01/23/19 08:59 01/23/19 08:59 01/23/19 08:59 01/23/19 08:59 Oxygen Flow Rate (L/min) 2 Oxygen Delivery Method Room Air Weight: 60.9 kg Body Mass Index (BMI) 22.8 Intake and Output for Last 24 Hours 01/21/19 01/22/19 01/23/19 23:59 23:59 23:59 Intake Total 674.33 / 924.33 1773.03 / 1773.03 100 / 100 Output Total 1450 / 1800 1875 / 1875 Balance -775.67 / -875.67 -101.97 / -101.97 100 / 100 Labs (Last 48 Hours) 01/21/19 01/21/19 01/21/19 11:50 13:55 17:35 WBC RBC Hgb Hct MCV MCH MCHC RDW Std Deviation RDW Coeff of Anuradha Plt Count MPV Immature Gran % (Auto) Neut % (Auto) Lymph % (Auto) [place] % (Auto) Eos % (Auto) Baso % (Auto) Absolute Neuts (auto) Absolute Lymphs (auto) Nucleated RBC % Differential Comment APTT 144.8 H* 37.4 H Sodium Potassium Chloride Carbon Dioxide Anion Gap BUN Creatinine Estim Creat Clear Calc Est GFR (MDRD) Af Amer Est GFR (MDRD) Non-Af BUN/Creatinine Ratio Glucose Calcium Phosphorus Magnesium Troponin I 0.160 H Albumin 01/22/19 01/22/19 01/22/19 00:00 05:20 05:20 WBC 13.0 H RBC 2.10 L Hgb 8.3 L Hct 24.1 L MCV 114.8 H MCH 39.5 H MCHC 34.4 RDW Std Deviation 57.3 H RDW Coeff of Anuradha 13.7 Plt Count 119 L MPV 11.2 Immature Gran % (Auto) 0.800 Neut % (Auto) 91.3 H Lymph % (Auto) 2.2 L [place] % (Auto) 5.5 Eos % (Auto) 0.0 Baso % (Auto) 0.2 Absolute Neuts (auto) 11.9 H Absolute Lymphs (auto) 0.28 L Nucleated RBC % 0 Differential Comment SCANNED APTT 89.6 H Sodium 140 Potassium 4.2 Chloride 109 H Carbon Dioxide 18.0 L Anion Gap 13 BUN 78 H Creatinine 4.84 H Estim Creat Clear Calc 12.71 Est GFR (MDRD) Af Amer 16 L Est GFR (MDRD) Non-Af 13 L BUN/Creatinine Ratio 16.1 Glucose 141 H Calcium 8.1 L Phosphorus Magnesium 2.5 Troponin I Albumin 01/22/19 01/23/19 07:02 05:50 WBC RBC Hgb Hct MCV MCH MCHC RDW Std Deviation RDW Coeff of Anuradha Plt Count MPV Immature Gran % (Auto) Neut % (Auto) Lymph % (Auto) [place] % (Auto) Eos % (Auto) Baso % (Auto) Absolute Neuts (auto) Absolute Lymphs (auto) Nucleated RBC % Differential Comment APTT 46.3 H Sodium 139 Potassium 3.6 Chloride 107 Carbon Dioxide 19.0 L Anion Gap BUN 97 H Creatinine 5.41 H Estim Creat Clear Calc 11.26 Est GFR (MDRD) Af Amer 14 L Est GFR (MDRD) Non-Af 11 L BUN/Creatinine Ratio 17.9 Glucose 109 H Calcium 8.1 L Phosphorus 4.8 Magnesium Troponin I Albumin 2.5 L Microbiology 01/21/19 04:30 Urine Catheter - Jefferson Urine Culture - Final Culture exhibits no growth. 01/21/19 04:01 Mucosa - Nasopharyngeal Respiratory Panel (PCR) - Final Clinical Impression(s) from Imaging Studies Renal Ultrasound 01/22/19 09:49 IMPRESSION: Atrophy of the right kidney. Small cyst in the left kidney. Electronically Signed: Davis Dania, at 11:17 EDT , Service support , Medical Necessity - Tobacco Use Smoking Status: Current every day smoker Tobacco Use: Cigarettes Assessment/Plan All Active Problems Acute respiratory failure with hypoxia (Acute) COPD with acute exacerbation (Acute) Cardiac enzymes elevated (Acute) Hypertensive emergency (Acute) Acute kidney failure (Acute) Hypertensive emergency (Acute) RECOMMENDATIONS: 1. Continue current antihypertensive regimen 2. Walking oximetry prior to discharge 3. Avoid nephrotoxic medications 4. This continue diuretic therapy 5. Hemodynamically stable on room air. Will sign off from a critical care perspective IMPRESSIONS: 1. Acute hypoxic respiratory failure secondary to probable flash pulmonary edema Patient with significant elevation of blood pressure in the ER at the outside facility in the setting of reported chronic renal disease. Patient was given IV Lasix and BiPAP with good response. Patient appears to have had flash pulmonary edema and is responded well to diuretic therapy. Off of BiPAP therapy. Patient should have a walking oximetry prior to discharge. Diuretic therapy will need to be discontinued secondary to renal function. 2. Possible COPD exacerbation Patient does have a history of significant smoking. Given rapid response to diuretic therapy, it is unclear that this truly represents a COPD exacerbation. Patient should still have a pulmonary function test as an outpatient for quantification and clarification of lung function. Patient can follow-up in our office 2 weeks after discharge and testing can be arranged. 3. Possible acute on chronic kidney disease Patient reports that I was informed I may need dialysis. We will attempt to obtain old information from outside facility. Hold nephrotoxic medications. Renal ultrasound shows no right kidney. 4. Hypertensive emergency Unclear etiology. Patient appears to have a history of noncompliance and reports only being on a beta-cristhian. Patient responded to Lasix and nitroglycerin. Lead pressure much improved on current medications. Would defer to renal on further alterations. 5. Tobacco abuse/hyperlipidemia/reported alcohol abuse Complicates care, management, recovery and prognosis. Will need to monitor for withdrawal. Patient has been placed on thiamine and folate. Code Visit Inpatient E&M: 50495 Subs Hosp L2
--- NOTE | 2019-01-23 11:57 | PN_ITS ---
Patient Problems: Active and Suspected Problems Acute respiratory failure with hypoxia (Acute) Acute exacerbation of congestive heart failure (Suspected) COPD with acute exacerbation (Acute) Acute kidney injury (Suspected) Cardiac enzymes elevated (Acute) Hypertensive emergency (Acute) Acute kidney failure (Acute) Hypertensive emergency (Acute) Vitals/I&O's: Vital Signs Temp Pulse Resp BP Pulse Ox 97.9 F 93 18 123/59 H 98 01/23/19 08:59 01/23/19 08:59 01/23/19 08:59 01/23/19 08:59 01/23/19 08:59 Oxygen Flow Rate (L/min) 2 Oxygen Delivery Method Room Air Weight: 60.9 kg Body Mass Index (BMI) 22.8 Intake and Output for Last 24 Hours 01/21/19 01/22/19 01/23/19 23:59 23:59 23:59 Intake Total 674.33 / 924.33 1773.03 / 1773.03 100 / 100 Output Total 1450 / 1800 1875 / 1875 Balance -775.67 / -875.67 -101.97 / -101.97 100 / 100 Microbiology Past 72 Hours 01/21/19 04:30 Urine Catheter - Jefferson Urine Culture - Final Culture exhibits no growth. 01/21/19 04:01 Mucosa - Nasopharyngeal Respiratory Panel (PCR) - Final Laboratory Results 01/23/19 05:50: Sodium 139, Potassium 3.6, Chloride 107, Carbon Dioxide 19.0 L, BUN 97 H, Creatinine 5.41 H, Estim Creat Clear Calc 11.26, Est GFR (MDRD) Af Amer 14 L, Est GFR (MDRD) Non-Af 11 L, BUN/Creatinine Ratio 17.9, Glucose 109 H, Calcium 8.1 L, Phosphorus 4.8, Albumin 2.5 L Current Medications Albuterol Sulfate (Ventolin Aerosols) 2.5 mg INHALATION Q2H PRN PRN PRN Reason: SHORTNESS OF BREATH Albuterol/Ipratropium (Duoneb) 3 ml INHALATION Q4HWA.RT [facility] Last Admin: 01/23/19 06:39 Dose: 3 ml Documented by: Amlodipine Besylate (Norvasc) 2.5 mg PO DAILY [facility] Last Admin: 01/23/19 09:01 Dose: 2.5 mg Documented by: Aspirin (Ecotrin) 81 mg PO DAILY@0800 [facility] Last Admin: 01/23/19 07:55 Dose: 81 mg Documented by: Atorvastatin Calcium (Lipitor) 40 mg PO QHS [facility] Last Admin: 01/22/19 22:10 Dose: 40 mg Documented by: Carvedilol (Coreg) 6.25 mg PO BID [facility] Last Admin: 01/23/19 09:02 Dose: 6.25 mg Documented by: Dextrose (D50w Syringe) 0 gm IV X1 PRN; Protocol PRN Reason: Hypoglycemia Glucagon () 1 mg IM .X1 PRN PRN Reason: Hypoglycemia Heparin Sodium (Porcine) (Heparin Na) 0 unit IV UD PRN; Protocol Last Admin: 01/22/19 08:25 Dose: 1,000 unit Documented by: Isosorbide Mononitrate (Imdur) 30 mg PO DAILY [facility] Last Admin: 01/23/19 09:02 Dose: 30 mg Documented by: Lorazepam (Ativan) 2 mg PO Q2H PRN PRN; Protocol PRN Reason: CIWA score > 8 but <15 Lorazepam (Ativan) 2 mg PO UD PRN; Protocol PRN Reason: CIWA score >/=15. Lorazepam (Ativan) 2 mg IV Q2H PRN PRN; Protocol PRN Reason: CIWA score > 8 but <15 Lorazepam (Ativan) 2 mg IV UD PRN; Protocol PRN Reason: CIWA score >/=15. Melatonin (Melatonin) 3 mg PO QHS PRN PRN PRN Reason: INSOMNIA Morphine Sulfate () 2 mg IV Q3H PRN PRN PRN Reason: Severe pain (7-10/10) Multivitamins/Minerals ([facility] Min[facility]) [facility] Last Admin: 01/23/19 07:55 Dose: 1 tablet Documented by: Nicotine (Nicoderm Cq (Pbkc)) 21 mg TRANSDERM. DAILY [facility] Last Admin: 01/23/19 09:01 Dose: 21 mg Documented by: Nicotine Polacrilex ([place] Nicotine (Bkc)) 2 mg PO Q2H PRN PRN PRN Reason: Nicotine Craving Nitroglycerin (Nitrostat) 0.4 mg SUBLINGUAL Q5M PRN PRN Reason: CARDIAC/CHEST PAIN Oxycodone HCl (Oxyir) 5 mg PO Q4H PRN PRN PRN Reason: Moderate pain (4-6/10) Sodium Chloride () 10 - 40 ml IV UD PRN PRN Reason: SALINE FLUSH Last Admin: 01/22/19 05:19 Dose: 40 ml Documented by: Thiamine HCl (Vitamin B1) 100 mg PO BIDCM [facility] Stop: 01/23/19 17:01 Last Admin: 01/23/19 07:55 Dose: 100 mg Documented by: Medical Necessity - Tobacco Use Smoking Status: Current every day smoker Tobacco Use: Cigarettes Assessment/Plan All Active Problems Acute respiratory failure with hypoxia (Acute) COPD with acute exacerbation (Acute) Cardiac enzymes elevated (Acute) Hypertensive emergency (Acute) Acute kidney failure (Acute) Hypertensive emergency (Acute)
--- NOTE | 2019-01-23 13:36 | PCM.PN.CARD ---
Subjectve: The patient is awake and alert. He looks better compared to admission. He looks less stressed in the face. He looks like he is breathing more comfortably. He states he does feel better overall. Objective: Vital Signs Temp Pulse Resp BP Pulse Ox 97.9 F 79 18 132/65 H 97 01/23/19 08:59 01/23/19 12:35 01/23/19 08:59 01/23/19 12:35 01/23/19 12:55 Oxygen Flow Rate (L/min) 2 Oxygen Delivery Method Room Air Weight: 134 lb 4.184 oz Body Mass Index (BMI) 22.8 Orthostatic Vital Signs Start: 01/23/19 12:52 Freq: NOW Status: Active Protocol: Activity Type Activity Date Activity User E-Sign Co-Sign Detail Recorded Client Recorded Date Recorded By Document 01/23/19 12:35 [id number] 01/23/19 12:54 KK 01/23/19 12:35 Orthostatic Vitals Standing -Blood Pressure (90/60-120/80) 130/72 H -Extremity Use Left Arm -Pulse Rate (60-100) 77 Sitting -Blood Pressure (90/60-120/80) 139/70 H -Extremity Use Left Arm -Pulse Rate (60-100) 77 Lying -Blood Pressure (90/60-120/80) 132/65 H -Extremity Use Left Arm -Pulse Rate (60-100) 79 Intake and Output for Last 24 Hours 01/21/19 01/22/19 01/23/19 23:59 23:59 23:59 Intake Total 674.33 / 924.33 1773.03 / 1773.03 350 / 350 Output Total 1450 / 1800 1875 / 1875 Balance -775.67 / -875.67 -101.97 / -101.97 350 / 350 General: Awake, Alert, Oriented x 3, Cooperative, No Acute Distress HEENT: Atraumatic, Normocephalic, PERRL, EOMI, Sclera Non Icteric Oral: Moist Mucosa Neck: Supple, Good ROM, No JVD Lungs: Diminished [place] Bases Cardiovascular: Regular Rhythm, Normal S1, Normal S2 Abdomen: Bowel Sounds Present, Soft, Non Tender Psych/Mental Status: Appropriate 01/23/19 05:50: Sodium 139, Potassium 3.6, Chloride 107, Carbon Dioxide 19.0 L, BUN 97 H, Creatinine 5.41 H, Est GFR (MDRD) Af Amer 14 L, Est GFR (MDRD) Non-Af 11 L, BUN/Creatinine Ratio 17.9, Glucose 109 H, Calcium 8.1 L, Phosphorus 4.8 Rhythm: Sinus rhythm with episodes appearing compatible with paroxysmal atrial fibrillation with RVR Medical Necessity - Tobacco Use Smoking Status: Current every day smoker Tobacco Use: Cigarettes Assessment/Plan 1. Abnormal cardiac enzymes The patient does have abnormal cardiac enzymes. The etiology may be multifactorial. This could be related to a combination of underlying cardiovascular disease, hypertension, renal insufficiency, etc. At the moment the patient will continue to be monitored and followed. Ideally the patient would be considered for future evaluation with diagnostic cardiac catheterization to evaluate his coronary anatomy. However, at the moment, this would be challenging secondary to his marked renal insufficiency and concerns of IV contrast related nephropathy worsening his renal insufficiency and bringing him to hemodialysis sooner than later. Thus at the present time he will need to continue medical therapy as deemed appropriate. 2. CHF The patient has been found to have a clinical scenario compatible with CHF. Based upon his echocardiographic findings this may be acute diastolic mediated CHF superimposed upon his underlying renal insufficiency. The patient will continue medical management with adjustment of medicines as deemed appropriate. 3. Paroxysmal atrial fibrillation His cardiac alarm security or surveillance monitor suggests episodes of paroxysmal atrial fibrillation. He will need to be monitored and continue medical management. This will include appropriate rate control therapy, consideration for anti-rhythmic therapy, as well as consideration for anticoagulant therapy-as deemed appropriate. 4. Hypertensive emergency The patient's blood pressure was markedly elevated upon arrival. His blood pressure has improved. He will continue antihypertensive therapy with further adjustment as deemed appropriate taken into consideration his renal insufficiency. 5. Hyperlipidemia He will continue lipid-lowering therapy as deemed appropriate. 6. Peripheral artery disease He does have some element of peripheral artery disease involving the lower extremities. The details of which are unknown. Depending upon his clinical course this may need to be reassessed. However it does increase his risk of vascular disease and other vascular distributions including cardiac. 7. Renal insufficiency He does have renal insufficiency. He has been evaluated by nephrology as an outpatient. His creatinine level remains elevated at 5.41. He will continue evaluation with input from nephrology. 8. Acute respiratory failure May be secondary to concerns of his volume status from cardiorenal contribution. He appears to be improving with respect to medical management at this time. He will continue evaluation care including input from pulmonology and critical care medicine. Comment: The patient's case has been discussed and reviewed with the patient. This note was generated using a voice recognition system and there may be incorrect words, spelling or punctuation that were not noted when reviewing the office note prior to saving.
--- NOTE | 2019-01-23 13:59 | DCINST_ITS ---
- Discharge Diagnoses Current Active Problems: Current Active and Chronic Problems Acute respiratory failure with hypoxia (Acute) COPD with acute exacerbation (Acute) Kidney disease (Chronic) Cardiac enzymes elevated (Acute) Hypertensive emergency (Acute) Tobacco use (Chronic) Hypertension (Chronic) Hyperlipidemia (Chronic) Alcohol abuse (Chronic) PAD (peripheral artery disease) (Chronic) Acute kidney failure (Acute) Hypertensive emergency (Acute) Reason(s) for Visit for Discharge Instructions: Shortness of breath You will use the following diet at home:: Cardiac Your food should be the consistency of: Regular Your liquids should be the consistency of: Regular/Thin Discharge Activity: Return to Normal Activity Additional Instructions: Continue to take all your medications as prescribed. Continue to weigh yourself. 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 You need repeat your kidney test within 1 week with your nephrology office. Allergies/Adverse Reactions: Allergies No Known Allergies Allergy (Verified 01/21/19 03:55) Medications to take at Discharge Amiodarone HCl [Cordarone] 200 mg PO TID 30 Days #90 tab 01/23/19 Amlodipine [Norvasc] 2.5 mg PO DAILY 30 Days #30 tab 01/23/19 Aspirin E.C. [Ecotrin] 81 mg PO DAILY@0800 30 Days #30 tab 01/23/19 Atorvastatin Calcium [Lipitor] 40 mg PO QHS 30 Days #30 tab 01/23/19 Carvedilol [Coreg (Beta Aries)] 12.5 mg PO BID 30 Days #60 tab 01/23/19 Furosemide [Lasix] 40 mg PO DAILY 30 Days #30 tab 01/23/19 Isosorbide Mononitrate [Imdur] 30 mg PO DAILY 30 Days #30 tab 01/23/19 Multivitamins,Ther W-Minerals [Multivitamin With Minerals] 1 tab PO DAILYCM 30 Days #30 tab 01/23/19 Nicotine [Nicoderm Cq] 21 mg TRANSDERM. DAILY 30 Days #30 patch 01/23/19 Thiamine Hydrochloride [Vitamin B1] 100 mg PO BIDCM 30 Days #30 tab 01/23/19 The following prescriptions were given: Amiodarone HCl [Cordarone] 200 mg PO TID 30 Days #90 tab [facility] [place] Carvedilol [Coreg (Beta Aries)] 12.5 mg PO BID 30 Days #60 tab Transmission Status: Pending to [place], [place] Aspirin E.C. [Ecotrin] 81 mg PO DAILY@0800 30 Days #30 tab Transmission Status: Pending to [place], [place] Isosorbide Mononitrate [Imdur] 30 mg PO DAILY 30 Days #30 tab Transmission Status: Pending to [place], [place] Furosemide [Lasix] 40 mg PO DAILY 30 Days #30 tab Transmission Status: Pending to [place], [place] Atorvastatin Calcium [Lipitor] 40 mg PO QHS 30 Days #30 tab Transmission Status: Pending to [place], [place] Multivitamins,Ther W-Minerals [Multivitamin With Minerals] 1 tab PO DAILYCM 30 Days #30 tab Transmission Status: Pending to [place], [place] Nicotine [Nicoderm Cq] 21 mg TRANSDERM. DAILY 30 Days #30 patch Transmission Status: Pending to [place], [place] Amlodipine [Norvasc] 2.5 mg PO DAILY 30 Days #30 tab Transmission Status: Pending to [place], [place] Thiamine Hydrochloride [Vitamin B1] 100 mg PO BIDCM 30 Days #30 tab Transmission Status: Pending to [place], [place] Primary Care Physician: Heath Brown MD [Primary Care Provider] - Please follow up with your Primary Care Physician in: within 1-2 weeks Test Results: Test results from this visit will be discussed in further detail at your follow- up appointment, if applicable. When: Dr. Padilla within 1-2 weeks Proposed Discharge Date: 01/23/19
--- NOTE | 2019-01-23 14:08 | DS.PCM_ITS ---
Discharge Date and Diagnosis Date of Admission: 01/21/19 Date of Discharge: 01/23/19 - Primary Discharge Diagnosis Active and Suspected Problems Acute hypoxic respiratory failure Acute decompensated diastolic CHF CKD stage IV/V Indeterminant troponin Hypertensive emergency Nicotine dependence Hypomagnesemia Possible alcohol withdrawal - Secondary Discharge Diagnosis Chronic Problems Kidney disease (Chronic) Tobacco use (Chronic) Hypertension (Chronic) Hyperlipidemia (Chronic) Alcohol abuse (Chronic) PAD (peripheral artery disease) (Chronic) Hospital Course and Treatment Imaging Results: Clinical Impression(s) from Imaging Studies Renal Ultrasound 01/21/19 02:11 IMPRESSION: Nonvisualization of the right kidney. Normal left kidney CT may be helpful for further evaluation as might radionuclide renal scan if clinically indicated Electronically Signed: Chris Hodge MD at 17:43 EDT , Service support , Chest X-Ray 01/21/19 05:55 IMPRESSION: Normal x-ray examination of the chest. Electronically Signed: Lissette White, at 10:42 EDT Tel , Service support , Renal Ultrasound 01/22/19 09:49 IMPRESSION: Atrophy of the right kidney. Small cyst in the left kidney. Electronically Signed: Davis Najera, at 11:17 EDT , Service support , [facility] [facility] Nephrology Cardiology Operations: None Procedures: 2-D Echocardiogram Summary of Care Provided: 68-year-old male with past medical history of alcohol/tobacco abuse, hypertension, hyperlipidemia, previous CKD stage IV/V who comes in with progressive shortness of breath ongoing for about 2 days without fever or chills or significant lower extremity edema. Patient was seen in the outside hospital and transferred to [facility]. Patient's management was as follows: 1. Acute hypoxic respiratory insufficiency, multifactorial -acute decompensated diastolic CHF, resolved at the time of discharge. 2. Acute decompensated diastolic CHF, he is on IV Lasix with improvement, discharged on p.o. Lasix 40 mg daily. 3. CKD stage IV/V, likely secondary to acute decompensated diastolic CHF, urology was consulted, renal ultrasound showed normal left kidney, absent right kidney. Patient follows with Dr. Ludwig in [place]. He needs to follow-up with him within a week for repeat blood work. 4. Indeterminate troponin likely secondary to hypertensive emergency/ETHAN, surgery was consulted, patient was on aspirin, statin, carvedilol, Imdur. He will follow-up with cardiology in the outpatient 5. Hypertensive emergency, initially managed in ICU on nitroglycerin drip, his blood pressure improved. He was discharged on carvedilol, amlodipine 6. Paroxysmal atrial fibrillation, patient had episodes of atrial fibrillation on telemetry, started on amiodarone by cardiology 7. Hyperlipidemia, on statin 8. Nicotine dependence, on replacement 9. Hypomagnesemia, replaced. 10. Alcohol use disorder, managed on the [facility] protocol Subjective: On the day of discharge, patient was seen and examined. Denied any new complaints. He feels improved. He denied any shortness of breath with exertion. Orthostatic vitals were negative. Patient was evaluated for ambulatory oxygen and his oxygen stayed more than 94% with ambulation Objective: Physical exam: General: Alert, Oriented x3, Cooperative, No apparent distress, off oxygen HEENT: Atraumatic, PERRLA, EOMI, Normocephalic Oral: Moist Mucosa Neck: Supple Lungs: Clear to auscultation, Normal air movement Cardiovascular: Regular rate, Regular Rhythm, Normal S1, Normal S2 Abdomen: Bowel Sounds Present, Soft, Non Tender, Non-Distended, No Hepato- splenomegaly Extremities: No edema Skin: No rashes, No breakdown Musculoskeletal: No Tenderness to Palpation of Joints or Extremities Lymphatic: No Cervical, Supraclavicular, or Inguinal Adenopathy Neurological: Cranial nerves II-XII grossly intact, Neuro grossly intact Psych/Mental Status: Normal Affect, Appropriate - Physical Exam Vital Signs Temp Pulse Resp BP Pulse Ox 97.9 F 79 18 132/65 H 97 01/23/19 08:59 01/23/19 12:35 01/23/19 08:59 01/23/19 12:35 01/23/19 12:55 Oxygen Flow Rate (L/min) 2 Oxygen Delivery Method Room Air Weight: 60.9 kg Body Mass Index (BMI) 22.8 Orthostatic Vital Signs Start: 01/23/19 12:52 Freq: NOW Status: Active Protocol: Activity Type Activity Date Activity User E-Sign Co-Sign Detail Recorded Client Recorded Date Recorded By Document 01/23/19 12:35 [id number] 01/23/19 12:54 KK 01/23/19 12:35 Orthostatic Vitals Standing -Blood Pressure (90/60-120/80) 130/72 H -Extremity Use Left Arm -Pulse Rate (60-100) 77 Sitting -Blood Pressure (90/60-120/80) 139/70 H -Extremity Use Left Arm -Pulse Rate (60-100) 77 Lying -Blood Pressure (90/60-120/80) 132/65 H -Extremity Use Left Arm -Pulse Rate (60-100) 79 Intake and Output for Last 24 Hours 01/21/19 01/22/19 01/23/19 23:59 23:59 23:59 Intake Total 674.33 / 924.33 1773.03 / 1773.03 350 / 350 Output Total 1450 / 1800 1875 / 1875 Balance -775.67 / -875.67 -101.97 / -101.97 350 / 350 Microbiology Past 72 Hours 01/21/19 04:30 Urine Culture - Final Urine Catheter - Jefferson Culture exhibits no growth. 01/21/19 04:01 Respiratory Panel (PCR) - Final Mucosa - Nasopharyngeal Laboratory Tests Past 24 Hrs 01/23/19 05:50 Sodium 139 Potassium 3.6 Chloride 107 Carbon Dioxide 19.0 L BUN 97 H Creatinine 5.41 H Estim Creat Clear Calc 11.26 Est GFR (MDRD) Af Amer 14 L Est GFR (MDRD) Non-Af 11 L BUN/Creatinine Ratio 17.9 Glucose 109 H Calcium 8.1 L Phosphorus 4.8 Albumin 2.5 L Discharge Diet: 6 Cup Fluid Restriction Discharge Activity: Return to Normal Activity Home Medications: Medications to take at Discharge Amiodarone HCl [Cordarone] 200 mg PO TID 30 Days #90 tab 01/23/19 Amlodipine [Norvasc] 2.5 mg PO DAILY 30 Days #30 tab 01/23/19 Aspirin E.C. [Ecotrin] 81 mg PO DAILY@0800 30 Days #30 tab 01/23/19 Atorvastatin Calcium [Lipitor] 40 mg PO QHS 30 Days #30 tab 01/23/19 Carvedilol [Coreg (Beta Aries)] 12.5 mg PO BID 30 Days #60 tab 01/23/19 Furosemide [Lasix] 40 mg PO DAILY 30 Days #30 tab 01/23/19 Isosorbide Mononitrate [Imdur] 30 mg PO DAILY 30 Days #30 tab 01/23/19 Multivitamins,Ther W-Minerals [Multivitamin With Minerals] 1 tab PO DAILYCM 30 Days #30 tab 01/23/19 Nicotine [Nicoderm Cq] 21 mg TRANSDERM. DAILY 30 Days #30 patch 01/23/19 Thiamine Hydrochloride [Vitamin B1] 100 mg PO BIDCM 30 Days #30 tab 01/23/19 Following Prescrptions Were Given to Patient: Amiodarone HCl [Cordarone] 200 mg PO TID 30 Days #90 tab Transmission Status: Received by [place], [place] Carvedilol [Coreg (Beta Aries)] 12.5 mg PO BID 30 Days #60 tab Transmission Status: Received by [place], [place] Aspirin E.C. [Ecotrin] 81 mg PO DAILY@0800 30 Days #30 tab Transmission Status: Received by [place] Isosorbide Mononitrate [Imdur] 30 mg PO DAILY 30 Days #30 tab Transmission Status: Received by [place] Furosemide [Lasix] 40 mg PO DAILY 30 Days #30 tab Transmission Status: Received by [place] Atorvastatin Calcium [Lipitor] 40 mg PO QHS 30 Days #30 tab Transmission Status: Received by [place] Multivitamins,Ther W-Minerals [Multivitamin With Minerals] 1 tab PO DAILYCM 30 Days #30 tab Transmission Status: Received by [place] Nicotine [Nicoderm Cq] 21 mg TRANSDERM. DAILY 30 Days #30 patch Transmission Status: Received by [place] Amlodipine [Norvasc] 2.5 mg PO DAILY 30 Days #30 tab Transmission Status: Received by [place] Thiamine Hydrochloride [Vitamin B1] 100 mg PO BIDCM 30 Days #30 tab Transmission Status: Received by [place], [place] Primary Care Physician: Heath Brown MD [Primary Care Provider] - Please follow up with your Primary Care Physician in: within 1-2 weeks When: Dr. Padilla within 1-2 weeks Disposition: Home Minutes spent on discharge:: 40 Patient Condition:: Stable Medical Necessity - Tobacco Use Smoking Status: Current every day smoker Tobacco Use: Cigarettes Meaningful Use Info Meaningful Use Diagnoses (Choose all that apply): CHF - CHF CLARITA/ARB ordered at discharge?: No Reason CLARITA/ARB not ordered?: Worsening renal dysfunctn Documented LVEF (%): 65 Code Visit Inpatient E&M: 22503 Disch Hosp
[2019-01-23] MEDS: Amiodarone 200 MG Tablet PO (14:48)
--- NOTE | 2019-01-23 14:48 | CASEMGMT ---
Therapy is recommending HHC for pt at this time. This RN CM to room to discuss discharge plan with pt at this time and initially pt agreed to HHC but then declined HHC/OP therapy at this time. 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 Pt is aware that if he decides that he needs HHC/OP once home then he can contact PCP, voices understanding. Pt voices no further questions/concerns/needs at this time. [place] [facility]ILDA MIST[facility]
--- NOTE | 2019-01-23 14:50 | PN.RENAL_ITS ---
Patient Problems: Active and Suspected Problems Acute respiratory failure with hypoxia (Acute) Acute exacerbation of congestive heart failure (Suspected) COPD with acute exacerbation (Acute) Acute kidney injury (Suspected) Cardiac enzymes elevated (Acute) Hypertensive emergency (Acute) Acute kidney failure (Acute) Hypertensive emergency (Acute) Subjective: No new complaints still has some dizziness and blurred vision on standing up no LE edema breathing is stable and not requiring O2 - Physical Exam General: Alert, Oriented x3, Cooperative HEENT: Atraumatic, PERRLA, EOMI, Normocephalic Neck: Supple, No JVD, Negative Carotid Bruits Lungs: Clear to auscultation, Normal air movement Cardiovascular: Regular rate, No murmurs Abdomen: Bowel Sounds Present, Soft, Non Tender Extremities: No edema, Capillary Refill Less than 3 Seconds Skin: No rashes, No breakdown Musculoskeletal: No Tenderness to Palpation of Joints or Extremities Neurological: Cranial nerves II-XII grossly intact Psych/Mental Status: Normal Affect, Appropriate Vital Signs Temp Pulse Resp BP Pulse Ox 98.0 F 72 18 147/78 H 100 01/23/19 14:44 01/23/19 14:44 01/23/19 14:44 01/23/19 14:44 01/23/19 14:44 Oxygen Flow Rate (L/min) 2 Oxygen Delivery Method Room Air Weight: 60.9 kg Body Mass Index (BMI) 22.8 Orthostatic Vital Signs Start: 01/23/19 12:52 Freq: NOW Status: Active Protocol: Activity Type Activity Date Activity User E-Sign Co-Sign Detail Recorded Client Recorded Date Recorded By Document 01/23/19 12:35 [id number] 01/23/19 12:54 01/23/19 12:35 Orthostatic Vitals Standing -Blood Pressure (90/60-120/80) 130/72 H -Extremity Use Left Arm -Pulse Rate (60-100) 77 Sitting -Blood Pressure (90/60-120/80) 139/70 H -Extremity Use Left Arm -Pulse Rate (60-100) 77 Lying -Blood Pressure (90/60-120/80) 132/65 H -Extremity Use Left Arm -Pulse Rate (60-100) 79 Intake and Output for Last 24 Hours 01/21/19 01/22/19 01/23/19 23:59 23:59 23:59 Intake Total 674.33 / 924.33 1773.03 / 1773.03 350 / 350 Output Total 1450 / 1800 1875 / 1875 Balance -775.67 / -875.67 -101.97 / -101.97 350 / 350 Microbiology Past 72 Hours 01/21/19 04:30 Urine Culture - Final Urine Catheter - Jefferson Culture exhibits no growth. 01/21/19 04:01 Respiratory Panel (PCR) - Final Mucosa - Nasopharyngeal Laboratory Tests Past 24 Hrs 01/23/19 05:50 Sodium 139 Potassium 3.6 Chloride 107 Carbon Dioxide 19.0 L BUN 97 H Creatinine 5.41 H Estim Creat Clear Calc 11.26 Est GFR (MDRD) Af Amer 14 L Est GFR (MDRD) Non-Af 11 L BUN/Creatinine Ratio 17.9 Glucose 109 H Calcium 8.1 L Phosphorus 4.8 Albumin 2.5 L Medical Necessity - Tobacco Use Smoking Status: Current every day smoker Tobacco Use: Cigarettes Assessment/Plan All Active Problems Acute respiratory failure with hypoxia (Acute) COPD with acute exacerbation (Acute) Cardiac enzymes elevated (Acute) Hypertensive emergency (Acute) Acute kidney failure (Acute) Hypertensive emergency (Acute) 1-CKD stage 5. creatinine is slightly higher but that's likely related to improved blood pressure values. No other uremic symptoms. Volume status looks adequate. Potassium is okay. Okay to discharge. No acute indications to start dialysis right now. He wants to follow-up with Dr. Ludwig his primary claims adjuster supervisor in [place]. I did let Dr. Ludwig's office know about his discharge. 2-hypertensive emergency. Treated initially with nitroglycerin drip. Blood pressure is better now. Dizziness is likely related to sudden control off long- standing hypertension. Does not have hypotension. Continue same medications for now. 3-non-ST [place]. Cardiology service is following. 4-fluid overload from advanced chronic kidney disease. better Discussed with hospitalist. Okay to discharge from hospital today. He needs to follow with nephrology within 1-2 weeks. His primary claims adjuster supervisor is aware.
== END 2019-01-23 15:55 | disposition home or self-care (01) | DRG 291 ==
LOC: ICU 01-22 07:11 → PCU 01-22 13:06 → ICU 01-22 13:30 → PCU 01-22 13:31 → ICU 01-23 08:11 → PCU 01-23 08:11
PROVIDERS: Internal Medicine Cardiovascular Disease; Admitting Provider Family Medicine; Family Provider Family Medicine; PCP Family Medicine; Visit Provider Internal Medicine
DX: I13.2 Hypertensive heart and chronic kidney disease with heart failure and with stage 5 chronic kidney disease, or end stage renal disease (principal); J96.01 Acute respiratory failure with hypoxia; I50.33 Acute on chronic diastolic (congestive) heart failure; I16.1 Hypertensive emergency; N18.5 Chronic kidney disease, stage 5; F17.210 Nicotine dependence, cigarettes, uncomplicated; E83.42 Hypomagnesemia; E78.5 Hyperlipidemia, unspecified; I73.9 Peripheral vascular disease, unspecified; I48.0 Paroxysmal atrial fibrillation; F10.10 Alcohol abuse, uncomplicated
CPT/HCPCS: 36415; 36600; 71045; 76770; 80048; 80061; 80069; 80307; 80320; 81001; 82570; 82803; 82962; 83735; 84100; 84300; 84443; 84484; 85025; 85610; 85730; 87086; 87633; 93005; 93306; 94002; 94640; 94668; 97162; 97165; 97530; 97535; 97802; 99251; 99406; A4216; G0463; G0480; J1940

== ENCOUNTER 2019-03-03 15:33 | Inpatient (IN) | payer MEDICARE, OTHER, SELFPAY ==
[2019-02-01 15:28] VITALS: BMI 21.9
--- NOTE | 2019-03-03 14:31 | PCM.HP.STD ---
Problem List (1) Atrial fibrillation Status: Chronic (2) Acute respiratory failure with hypoxia Status: Acute (3) Acute exacerbation of congestive heart failure Status: Suspected Qualifiers: (4) COPD with acute exacerbation Status: Acute (5) Acute kidney injury Status: Suspected (6) Kidney disease Status: Chronic (7) Cardiac enzymes elevated Status: Resolved (8) Hypertensive emergency Status: Acute (9) Tobacco use Status: Chronic (10) Hypertension Status: Chronic Qualifiers: (11) Hyperlipidemia Status: Chronic Qualifiers: (12) Alcohol abuse Status: Chronic (13) PAD (peripheral artery disease) Status: Chronic (14) Acute kidney failure Status: Acute (15) Hypertensive emergency Status: Acute History of Present Illness Date of Admission: 03/03/19 Chief Complaint: Shortness of breath. The patient is a 68 year old M who presents from [facility] with complaints of increased shortness of breath and productive cough which began last evening. He reports increased shortness of breath while lying flat. Denies significant weight gain. Denies increased swelling. Complains of chills, denies fever. Denies chest pain. Patient recently admitted to [facility] January 21-2018 for respiratory failure secondary to CHF. He has been following with nephrology, Dr. Juarez with [facility] for worsening renal function. He has a past medical history of COPD, chronic kidney disease with recent progression to stage V, chronic diastolic CHF, paroxysmal atrial fibrillation, peripheral vascular disease, anemia of chronic disease, hypertension, hyperlipidemia, tobacco dependence and history of alcohol abuse with recent cessation. [facility] Labs include: BNP 1059 Troponin 0.02 Creatinine 6.8 Potassium 4.4 Glucose 131 Lactic acid normal WBC 12.3 Hemoglobin 8.5 Platelet 214 Left shift Chest x-ray demonstrated small bilateral pleural effusions, mild interstitial edema. Past Medical History Past Medical History (Chronic Problems): Chronic Problems (Last Updated 02/08/19 @ 16:19 by JENNY Ndiaye) Atrial fibrillation (Chronic) Kidney disease (Chronic) Tobacco use (Chronic) Hypertension (Chronic) Hyperlipidemia (Chronic) Alcohol abuse (Chronic) PAD (peripheral artery disease) (Chronic) Medical History: Medical History (Last Updated 02/08/19 @ 16:19 by JENNY Ndiaye) Atrial fibrillation (Chronic) I48.91 COPD with acute exacerbation (Acute) J44.1 Kidney disease (Chronic) N28.9 Cardiac enzymes elevated (Resolved) R74.8 Hypertensive emergency (Acute) I16.1 Hypertension (Chronic) I10 Hyperlipidemia (Chronic) E78.5 Alcohol abuse (Chronic) F10.10 PAD (peripheral artery disease) (Chronic) I73.9 Allergies No Known Allergies Allergy (Verified 02/01/19 15:28) Home Medications: Ambulatory Orders Medication Instructions Recorded amiodarone 200 mg tablet 200 mg PO DAILY #30 tab 02/08/19 amlodipine 2.5 mg tablet 2.5 mg PO DAILY #30 tab 02/08/19 atorvastatin 40 mg tablet 40 mg PO QHS #30 tab 02/08/19 carvedilol 12.5 mg tablet 12.5 mg PO BID #60 tab 02/08/19 furosemide 20 mg tablet 20 mg PO DAILY #30 tab 02/08/19 isosorbide mononitrate ER 30 mg 30 mg PO DAILY #30 tab 02/08/19 tablet,extended release 24 hr Surgical History: - - Tonsillectomy, appendectomy, left retinal detachment surgery, cataract surgery. Psychiatric History: No pertinent psych hx Lives: Spouse/ Significant Other Smoking Status: Current every day smoker Tobacco Use: Cigarettes Alcohol: Sober - Recent sobriety Drugs: None - *Family History Maternal History Items: - - Notes a maternal family history of hypertension. Paternal History Items: - - Father was healthy and unfortunately from complications at an older age from pneumonia but denied any history of heart disease, diabetes or cancer. Review of Systems Constitutional: Reports: Chills, Malaise. Denies: Fever HEENT: Denies: Head Aches, Sinus Congestion, Sinus Drainage Cardiovascular: Denies: Chest Pain, Edema, Light Headedness, Palpitations, Syncope Respiratory: Reports: Cough, Shortness of Breath, Sputum production, Wheezing Gastrointestinal: Denies: Abdominal Pain, Nausea, Vomiting Genitourinary: Denies: Dysuria Musculoskeletal: Denies: Joint Pain, Joint Tenderness Skin: Denies: Rash, Wounds Neurological: Denies: Numbness, Tingling, Focal weakness Psychiatric: Denies: Anxiety, Depression, Homicidal Ideations, Suicidal Ideations Hematologic/ Lymphatic: Denies: Easy Bruising, Easy Bleeding VTE Information - Inpt Only VTE Present on Admission: No VTE Mechan Device Prophylaxis: None VTE Pharm Prophylaxis ordered?: Yes - Physical Exam General: Alert, Oriented x3, Cooperative HEENT: Atraumatic, PERRLA, EOMI, Normocephalic Oral: Dry Mucosa Neck: Supple, No JVD, Negative Carotid Bruits Lungs: Diminished, Rales - Bilateral bases, Wheezes Cardiovascular: Regular rate, Regular Rhythm, Normal S1, Normal S2, No murmurs Abdomen: Bowel Sounds Present, Soft, Non Tender, Non-Distended Extremities: No clubbing, No cyanosis, Capillary Refill Less than 3 Seconds, Edema - Nonpitting edema bilateral lower extremities Skin: No rashes, No breakdown Musculoskeletal: No Tenderness to Palpation of Joints or Extremities Neurological: Cranial nerves II-XII grossly intact, Neuro grossly intact Psych/Mental Status: Normal Affect, Appropriate Body Mass Index (BMI) 21.9 Assessment/Plan All Active Problems (Last Updated 02/08/19 @ 16:19 by JENNY Ndiaye) Acute respiratory failure with hypoxia (Acute) COPD with acute exacerbation (Acute) Cardiac enzymes elevated (Resolved) Hypertensive emergency (Acute) Acute kidney failure (Acute) Hypertensive emergency (Acute) 1. Acute hypoxic respiratory failure secondary to COPD exacerbation, acute on chronic diastolic CHF as well as possible community acquired pneumonia-continue supplement oxygen to maintain O2 above 90%. 2. Acute exacerbation of COPD- IV Solu-Medrol, albuterol and DuoNeb aerosols. Check respiratory panel. 3. Acute on chronic diastolic CHF-BNP 1059. Chest x-ray consistent with congestion. Echocardiogram 01/21/19 demonstrated an EF of 65%, moderate left ventricular hypertrophy. IV Lasix 40 mg every 8 hours. Strict I&O. Daily weight. Jimy wraps bilateral lower extremities. 4. Possible community acquired pneumonia-CXR at outside facility with R sided infiltrate versus scarring. WBC 12.3. Patient reports chills and productive cough. IV azithromycin and IV Rocephin. Check urine for strep and Legionella. Send sputum for culture. Albuterol and DuoNeb aerosols. Repeat chest x-ray in a.m. 5. ETHAN on CKD stage V- Creatinine January 2019 5.4. Creatinine at [facility] 6.8. Following with nephrology in [place]. Nephrology consult placed. Trend BMP. 6. Paroxysmal atrial fibrillation-continue home amiodarone regimen. Not on oral anticoagulation. 7. Peripheral vascular disease-continue outpatient follow-up with vascular. 8. Chronic macrocytic anemia/anemia of chronic disease- at baseline, trend CBC. 9. Hypertension-continue home amlodipine, carvedilol, isosorbide, Lasix regimen. 10. Hyperlipidemia- continue statin regimen. 11. Tobacco dependence-recently cut back, 4 to 5 cigarettes/day. Encourage cessation. 12. ETOH abuse-quit following recent hospital admission early January. Encouraged continued cessation. DVT prophylaxis- heparin sc This patient was seen by ALDEN Soriano under the supervision of Dr. Ghotra.
[2019-03-03 15:39] VITALS: PULSE 65; BMI 21.5; BMI 21.6
[2019-03-03 16:19] VITALS: BP 125/61; PULSE 64; RESP 18; TEMP 36.8; O2SAT 95
[2019-03-03] MEDS: Ceftriaxone 1 GM/50 ML BAG IV (16:43)
[2019-03-03 17:34] LABS: Hemoglobin A1c 5.4 % (4.2-6.3)
[2019-03-03 17:48] LABS: Magnesium 1.5 mg/dL (1.6-2.6); Thyroid Stim Hormone (TSH) 1.14 uIU/mL (0.358-3.74)
[2019-03-03 18:54] VITALS: PULSE 66
[2019-03-03 21:30] VITALS: O2SAT 95
[2019-03-03 22:05] VITALS: BP 110/63; PULSE 67; RESP 18; TEMP 36.8; O2SAT 97
[2019-03-03] MEDS: Carvedilol 12.5 MG Tablet PO (22:12)
[2019-03-03] MEDS: Heparin Injection (Vial) 5,000 UNIT/ML VIAL 5000 UNIT SC (22:12)
[2019-03-03] MEDS: Furosemide 40 MG/4 ML Vial IV (22:12)
[2019-03-03] MEDS: guaiFENesin 600 MG Tablet PO (22:13)
[2019-03-03] MEDS: Atorvastatin Calcium 40 MG Tablet PO (22:13)
[2019-03-03] MEDS: Thiamine Hydrochloride 100 MG Tablet PO (22:13)
[2019-03-03 23:00] VITALS: PULSE 64
[2019-03-04] VITALS (17 sets, daily range): BP systolic 103–183; BP diastolic 44–63; PULSE 65–75; RESP 16–20; TEMP 36.4–36.8; O2SAT 91–98
[2019-03-04] MEDS: Albuterol 2.5 MG/3 ML VIAL.NEB. INHALATION (04:18)
--- NOTE | 2019-03-04 05:30 | RAD_ITS ---
STUDY: X-RAY CHEST REASON FOR EXAM: Male, 68 years old. Cough and shortness of breath. TECHNIQUE: PA and lateral views of the chest. COMPARISON: Comparison is made with prior study dated January 21, 2019. FINDINGS: EKG electrodes are seen. There is evidence of infiltration in the right middle lobe as well as patchy infiltrate in the right lower lobe. There is blunting of the right costophrenic angle with elevation of the right costophrenic angle. Follow-up is recommended. Normal size heart. Normal mediastinum and susan. Normal visualized pulmonary arteries. There is atherosclerotic calcification of the aortic arch with tortuosity. There is demineralization of the osseous structures. Normal visualized ribs, clavicles, and shoulders. There is no demonstrated abnormality of the visualized soft tissue structures of the upper abdomen. RAD/Chest PA and Lateral IMPRESSION: New right middle lobe infiltrate with increased markings in the right lower lobe. Small right pleural effusion. Electronically Signed: Davis Najera, at 9:21 EDT , Service support ,
[2019-03-04] MEDS: Furosemide 40 MG/4 ML Vial IV (05:51)
[2019-03-04] MEDS: Magnesium Oxide 400 MG Tablet PO ×2 (05:51→11:48)
--- NOTE | 2019-03-04 05:55 | EKG12_ITS ---
Test Reason : AM EKG Blood Pressure : / mmHG Vent. Rate : 069 BPM Atrial Rate : 069 BPM P-R Int : 184 ms QRS Dur : 100 ms QT Int : 434 ms P-R-T Axes : 017 048 -72 degrees QTc Int : 465 ms Normal sinus rhythm with occasional premature ectopic complexes Nonspecific T wave abnormality Prolonged QT Abnormal ECG Confirmed by JOAO MITCHELL, KRISTINE ([id number]), assignment editor KRISHAN GILES ([id number]) on 03/06/2019 11:30:39 AM Referred By: ROSANNA Confirmed By:KRISTINE SHEPHERD MD
[2019-03-04 06:19] LABS: Absolute Lymphocyte Count 0.43 X10^3/uL (0.83-4.51); Absolute Neutrophil Count 7.3 X10^3/uL (2.0-7.7); Basophil# 0.01 X10^3/uL; Basophil% 0.1 % (0-1); Hematocrit 25.1 % (40-54); Hemoglobin 7.8 g/dL (13.0-16.5); Lymphocyte # 0.43 X10^3/ul (4.0); Lymphocyte % 5.5 % (19-41); Mean Corp Hgb Conc 31.1 g/dL (32-36); Mean Corpuscular Hgb 35.6 pg (27.0-32.0); Mean Corpuscular Volume 114.6 fL (80-94); Mean Platelet Vol. 10.7 fl (6.2-12.0); Monocyte# 0.04 X10^3/uL; Monocyte% 0.5 % (0-10); NRBC Flagged by Analyzer 0 % (0-5); Neutrophil # 7.28 X10^3/uL (2.7-7.7); Neutrophil % 93.5 % (47-70); POSITIVE DIFFERENTIAL YES; Platelet Count 169 K/mm3 (150-450); RBC Distribution Width SD 58.7 fl (35.1-43.9); Red Blood Count 2.19 M/mm3 (4.6-6.2); White Blood Count 7.8 K/mm3 (4.4-11.0)
[2019-03-04 06:41] LABS: Anion Gap 11 (5-15); BUN 83 mg/dL (7-18); BUN/Creat Ratio 11.7 RATIO (10-20); Calcium,Total 8.8 mg/dL (8.5-10.1); Chloride 114 mmol/L (98-107); Creatinine, Serum 7.09 mg/dL (0.70-1.30); EST Glomerular Filtration Rate 8 mL/min (>60); Est Glom Filt Rate - Afr Amer 10 mL/min (>60); Estimated Creatinine Clearance 8.84 ml/min; Glucose 140 mg/dL (74-106); Potassium 4.2 mmol/L (3.5-5.1); Sodium Level 143 mmol/L (136-145)
[2019-03-04 06:44] LABS: Differential Indicated SCAN CRITERIA MET
[2019-03-04 06:49] LABS: Differential Comment SCANNED; Macrocytosis 2+
[2019-03-04 06:52] LABS: Magnesium 1.8 mg/dL (1.6-2.6)
[2019-03-04] MEDS: Ipratropium/Albuterol Sulfate 3 ML AMPUL.NEB INHALATION ×4 (07:12→18:50)
[2019-03-04] MEDS: Aspirin E.C. 81 MG Tablet PO (08:34)
[2019-03-04] MEDS: Amiodarone 200 MG Tablet PO (08:35)
[2019-03-04] MEDS: Multivitamins,Ther W-Minerals Tablet 1 TABLET PO (08:35)
[2019-03-04] MEDS: Isosorbide Mononitrate 30 MG Tablet PO (08:35)
[2019-03-04] MEDS: Carvedilol 12.5 MG Tablet PO ×2 (08:35→23:07)
[2019-03-04] MEDS: amLODIPine 2.5 MG Tablet PO (08:36)
[2019-03-04] MEDS: Thiamine Hydrochloride 100 MG Tablet PO ×2 (08:36→23:18)
[2019-03-04] MEDS: guaiFENesin 600 MG Tablet PO ×2 (08:37→23:12)
[2019-03-04] MEDS: Heparin Injection (Vial) 5,000 UNIT/ML VIAL 5000 UNIT SC ×2 (09:42→23:07)
[2019-03-04] MEDS: Ceftriaxone 1 GM/50 ML BAG IV (10:59)
--- NOTE | 2019-03-04 11:04 | CASEMGMT ---
This RN CM to room to complete CM assessment and PAYROLL BENEFITS CLERK is at bedside completing a treatment at this time. CM will attempt again later. Briseida STEVENS CM
--- NOTE | 2019-03-04 12:01 | CASEMGMT ---
Addendum entered by Maxine Gross 03/04/19 12:35: Noted on 01/22/19 CM assessment, patient telephone order supervisor-Dr Sanders. GEOVANNA Herndon Original Note: RN CM Assessment Introduced role of RN CM to patient.? Patient is alert, oriented and able?to participate in RN CM Assessment. ?Care providers, pharmacy, and demographics verified. Presentation: Presented to [place] [facility] for progressively worsening dyspnea, fatigue, moderately productive cough. Admit Dx: Acute Hypoxic Resp Failure, PNA, COPD Exacerbation Re-Admit: No. Admitted 01/21-01/23/19 for Resp distress, COPD Exac/CHF Exac, ETHAN Barriers/Issues: Patient states that he has smoked x30ys, quit x4days ago. 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 Patient with noted h/o COPD- states he is not on any Inhalers and denies seeing a Trauma Coordinator. H/o CHF, no Teacher Ballet. Patient h/o CKD IV/V- followed up with senior software development manager after recent DC and will likely need dialysis. PCP: Heath Brown Specialists: Nephro- Dr Richards [facility] Insurance: [employer], [employer] Benefit:?Yes LNOK: Penny Sin LW/HPOA: States has both, aware not in file with [facility], Aware if brought in would scan on file. HPOA- Brother Noble Taveras Living Arrangements:?Lives with Sig. Other Marguerite in a 2 story home. Bedroom on 2nd fl. 1 step to enter home. ADL?s: Mostly ambulates using a cane. Independent with ADLs but Marguerite assists with medications and meals. Transportation: Patient drives DME: Cane, [facility] HHC: None SNF: None Goal: Home and does not think will have any needs, however treatment still in progress and aware CM will continue to follow for any emerging needs. Denies any questions/concerns/or issues with DC planning at this time. DC PLAN: Home, Pending Nephro Consult. Possible new HD. Possible Home O2. GEOVANNA Herndon
--- NOTE | 2019-03-04 12:15 | PN_ITS ---
<Stacie Rolon - Last Filed: 03/04/19 12:26> Subjective: Patient seen and examined. Reports improvement in breathing. Continues to have dyspnea with exertion. Denies fever, chills. Occasional productive cough. - Physical Exam General: Alert, Oriented x3, Cooperative HEENT: Atraumatic, PERRLA, EOMI, Normocephalic Neck: Supple, No JVD, Negative Carotid Bruits Lungs: Diminished, Rhonchi Cardiovascular: Regular rate, Regular Rhythm, Normal S1, Normal S2, No murmurs Abdomen: Bowel Sounds Present, Soft, Non Tender, Non-Distended Extremities: No clubbing, No cyanosis, No edema, Capillary Refill Less than 3 Seconds Skin: No rashes, No breakdown Musculoskeletal: No Tenderness to Palpation of Joints or Extremities Neurological: Cranial nerves II-XII grossly intact, Neuro grossly intact Psych/Mental Status: Normal Affect, Appropriate Vital Signs Temp Pulse Resp BP Pulse Ox 97.7 F L 69 18 183/63 H 94 03/04/19 08:45 03/04/19 11:00 03/04/19 10:00 03/04/19 08:45 03/04/19 08:45 Oxygen Flow Rate (L/min) 2 Oxygen Delivery Method Nasal Cannula Weight: 138 lb 3.677 oz Body Mass Index (BMI) 21.5 Intake and Output for Last 24 Hours 03/02/19 03/03/19 03/04/19 23:59 23:59 23:59 Intake Total 625 / 625 905 / 905 Output Total 700 / 700 600 / 600 Balance -75 / -75 305 / 305 Microbiology Past 72 Hours 03/04/19 04:10 Gram Stain - Preliminary Sputum, Expectorated/Coughed 03/03/19 16:00 Respiratory Panel (PCR) - Final Mucosa - Nasopharyngeal Rhinovirus 03/03/19 22:32 Streptococcus pneumoniae Antigen (M - Final Urine, Clean Catch 03/03/19 22:32 Legionella Antigen - Final Urine, Clean Catch Laboratory Tests Past 24 Hrs 03/03/19 03/03/19 03/04/19 16:45 16:45 05:56 WBC RBC Hgb Hct MCV MCH MCHC RDW Std Deviation RDW Coeff of Anuradha Plt Count MPV Immature Gran % (Auto) Neut % (Auto) Lymph % (Auto) Catahoula % (Auto) Eos % (Auto) Baso % (Auto) Absolute Neuts (auto) Absolute Lymphs (auto) Nucleated RBC % Differential Comment Macrocytosis Sodium 143 Potassium 4.2 Chloride 114 H Carbon Dioxide 18.0 L Anion Gap 11 BUN 83 H Creatinine 7.09 H Estim Creat Clear Calc 8.84 Est GFR (MDRD) Af Amer 10 L Est GFR (MDRD) Non-Af 8 L BUN/Creatinine Ratio 11.7 Glucose 140 H Hemoglobin A1c 5.4 Calcium 8.8 Magnesium 1.5 L TSH 1.14 03/04/19 03/04/19 05:56 05:56 WBC 7.8 RBC 2.19 L Hgb 7.8 L Hct 25.1 L MCV 114.6 H MCH 35.6 H MCHC 31.1 L RDW Std Deviation 58.7 H RDW Coeff of Anuradha 14.0 Plt Count 169 MPV 10.7 Immature Gran % (Auto) 0.400 Neut % (Auto) 93.5 H Lymph % (Auto) 5.5 L Catahoula % (Auto) 0.5 Eos % (Auto) 0.0 Baso % (Auto) 0.1 Absolute Neuts (auto) 7.3 Absolute Lymphs (auto) 0.43 L Nucleated RBC % 0 Differential Comment SCANNED Macrocytosis 2+ Sodium Potassium Chloride Carbon Dioxide Anion Gap BUN Creatinine Estim Creat Clear Calc Est GFR (MDRD) Af Amer Est GFR (MDRD) Non-Af BUN/Creatinine Ratio Glucose Hemoglobin A1c Calcium Magnesium 1.8 TSH Medical Necessity - Tobacco Use Smoking Status: Light Smoker (<10/day) Tobacco Use: Cigarettes Assessment/Plan All Active Problems (Last Updated 02/08/19 @ 16:19 by JENNY Ndiaye) Acute respiratory failure with hypoxia (Acute) COPD with acute exacerbation (Acute) Cardiac enzymes elevated (Resolved) Hypertensive emergency (Acute) Acute kidney failure (Acute) Hypertensive emergency (Acute) 1. Acute hypoxic respiratory insufficiency secondary to COPD exacerbation as a result of rhinovirus, mild acute on chronic diastolic CHF as well as possible community acquired pneumonia-continue supplement oxygen to maintain O2 above 90%. Amatory pulse ox prior to discharge. 2. Acute exacerbation of COPD secondary to acute rhinovirus- IV Solu-Medrol, albuterol and DuoNeb aerosols. Respiratory panel +rhinovirus. 3. Mild acute on chronic diastolic CHF-BNP 1059. Echocardiogram 01/21/19 demonstrated an EF of 65%, moderate left ventricular hypertrophy. CXR at outside facility read as congestion, small bilateral pleural effusions. However repeat CXR this a.m with right middle lobe infiltrate, no evidence of CHF. DC IV Lasix. 4. Possible community acquired pneumonia-CXR at outside facility with R sided infiltrate versus scarring. Repeat chest x-ray this a.m. with right middle lobe infiltrate. Admission WBC 12.3. IV azithromycin and IV Rocephin. Urine for strep and Legionella negative. Sputum culture pending. Albuterol and DuoNeb aerosols. 5. ETHAN on CKD stage V- Creatinine January 2019 5.4. Creatinine now 7.8. Following with nephrology in [place]. Nephrology consult placed. Trend BMP. 6. Paroxysmal atrial fibrillation-continue home amiodarone regimen. Not on oral anticoagulation. 7. Peripheral vascular disease-continue outpatient follow-up with vascular. 8. Chronic macrocytic anemia/anemia of chronic disease- at baseline, trend CBC. 9. Hypertension-continue home amlodipine, carvedilol, isosorbide, Lasix regimen. 10. Hyperlipidemia- continue statin regimen. 11. Tobacco dependence-recently cut back, 4 to 5 cigarettes/day. Encourage cessation. 12. ETOH abuse-quit following recent hospital admission early January. Encouraged continued cessation. DVT prophylaxis- heparin sc This patient was seen by ALDEN Soriano under the supervision of Dr. Gong. <Hans Gong - Last Filed: 03/04/19 17:19> Subjective: breathing better. - Physical Exam General: Alert, Cooperative HEENT: Atraumatic, Normocephalic Lungs: - - coarse breath sounds bilaterally. Cardiovascular: Regular rate, Regular Rhythm, Normal S1, Normal S2, No murmurs Abdomen: Bowel Sounds Present, Soft, Non Tender, Non-Distended Extremities: No edema, No Calf Tenderness Skin: No rashes, No breakdown Musculoskeletal: No Tenderness to Palpation of Joints or Extremities, No Muscle Wasting Psych/Mental Status: Normal Affect, Appropriate Vital Signs Temp Pulse Resp BP Pulse Ox 36.4 C L 75 20 H 103/44 L 98 03/04/19 13:46 03/04/19 14:50 03/04/19 14:50 03/04/19 13:46 03/04/19 13:46 Oxygen Flow Rate (L/min) 1 Oxygen Delivery Method Nasal Cannula Weight: 62.7 kg Body Mass Index (BMI) 21.5 Intake and Output for Last 24 Hours 03/02/19 03/03/19 03/04/19 23:59 23:59 23:59 Intake Total 625 / 625 905 / 905 Output Total 700 / 700 600 / 600 Balance -75 / -75 305 / 305 Microbiology Past 72 Hours 03/04/19 04:10 Gram Stain - Final Sputum, Expectorated/Coughed 03/03/19 16:00 Respiratory Panel (PCR) - Final Mucosa - Nasopharyngeal Rhinovirus 03/03/19 22:32 Streptococcus pneumoniae Antigen (M - Final Urine, Clean Catch 03/03/19 22:32 Legionella Antigen - Final Urine, Clean Catch Laboratory Tests Past 24 Hrs 03/03/19 03/03/19 03/04/19 16:45 16:45 05:56 WBC RBC Hgb Hct MCV MCH MCHC RDW Std Deviation RDW Coeff of Anuradha Plt Count MPV Immature Gran % (Auto) Neut % (Auto) Lymph % (Auto) Catahoula % (Auto) Eos % (Auto) Baso % (Auto) Absolute Neuts (auto) Absolute Lymphs (auto) Nucleated RBC % Differential Comment Macrocytosis Sodium 143 Potassium 4.2 Chloride 114 H Carbon Dioxide 18.0 L Anion Gap 11 BUN 83 H Creatinine 7.09 H Estim Creat Clear Calc 8.84 Est GFR (MDRD) Af Amer 10 L Est GFR (MDRD) Non-Af 8 L BUN/Creatinine Ratio 11.7 Glucose 140 H Hemoglobin A1c 5.4 Calcium 8.8 Magnesium 1.5 L Iron TIBC Iron Saturation Ferritin TSH 1.14 03/04/19 03/04/19 03/04/19 05:56 05:56 05:56 WBC 7.8 RBC 2.19 L Hgb 7.8 L Hct 25.1 L MCV 114.6 H MCH 35.6 H MCHC 31.1 L RDW Std Deviation 58.7 H RDW Coeff of Anuradha 14.0 Plt Count 169 MPV 10.7 Immature Gran % (Auto) 0.400 Neut % (Auto) 93.5 H Lymph % (Auto) 5.5 L Catahoula % (Auto) 0.5 Eos % (Auto) 0.0 Baso % (Auto) 0.1 Absolute Neuts (auto) 7.3 Absolute Lymphs (auto) 0.43 L Nucleated RBC % 0 Differential Comment SCANNED Macrocytosis 2+ Sodium Potassium Chloride Carbon Dioxide Anion Gap BUN Creatinine Estim Creat Clear Calc Est GFR (MDRD) Af Amer Est GFR (MDRD) Non-Af BUN/Creatinine Ratio Glucose Hemoglobin A1c Calcium Magnesium 1.8 Iron 50 L TIBC 202 L Iron Saturation 24.8 Ferritin 679 H TSH Assessment/Plan Patient seen and examined independently. Data reviewed. I agree with the above note by the nurse practitioner. 1. Acute hypoxic respiratory insufficiency * POA * respiratory failure ruled out * 2/2 AECOPD, pneumonia and rhinovirus * wean oxygen as tolerated 2. AECOPD * improving * may have been exacerbated by rhinovirus and pneumonia * wean steroids * continue BDs 3. Suspected pneumococcal pneumonia * RLL infiltrate on CXR * strep and legionella urinary antigens negative * continue azithro and CTX * pulm toilet 4. acute rhinovirus infection * supportive mgmt. 5. HFpEF * EF 65% * compensated * CXR c/w pneumonia, not CHF * furosemide d/c'd 6. ETHAN * creatinine 7.09, previously 5.4 on 01/23 * seen by nephrology today, who discussed [employer] with the patient. The patient will discuss with spouse Code Visit Inpatient E&M: 11601 Subs Hosp L2
--- NOTE | 2019-03-04 13:19 | CON.PCM_ITS ---
Reason for Consult Date of Consultation: 03/04/19 History of Present Illness: The patient is a 68 year old M history of COPD CKD stage IV/V hypertension diastolic heart failure who presented with a chief complaint of progressively worsening dyspnea fatigue and cough with yellow sputum sputum with chills but no fever. His initial serum creatinine was 6.8 and 1 drop to 7 range today which prompted renal consult. Patient has a creatinine between 4.9 and 5.4 at the beginning of January. His renal ultrasound then showed atrophic kidney on one side and normal size kidney on the other side. He shortness of breath is much better according to the patient still has some mild shortness of breath. Denies lower extremity edema dysuria hematuria. He was given Lasix IV 2-3 doses yesterday. He denies nausea vomiting diarrhea abdominal pain chest pain on LUTS. 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 Fernandes in [place] from Dr. Ludwig group. The patient has no complaints currently. Past Medical History Past Medical History (Chronic Problems): Chronic Problems (Last Updated 02/08/19 @ 16:19 by JENNY Ndiaye) Atrial fibrillation (Chronic) Kidney disease (Chronic) Tobacco use (Chronic) Hypertension (Chronic) Hyperlipidemia (Chronic) Alcohol abuse (Chronic) PAD (peripheral artery disease) (Chronic) Medical History: Medical History (Last Updated 02/08/19 @ 16:19 by JENNY Ndiaye) Atrial fibrillation (Chronic) I48.91 COPD with acute exacerbation (Acute) J44.1 Kidney disease (Chronic) N28.9 Cardiac enzymes elevated (Resolved) R74.8 Hypertensive emergency (Acute) I16.1 Hypertension (Chronic) I10 Hyperlipidemia (Chronic) E78.5 Alcohol abuse (Chronic) F10.10 PAD (peripheral artery disease) (Chronic) I73.9 Allergies No Known Allergies Allergy (Verified 02/01/19 15:28) Home Medications: Ambulatory Orders Medication Instructions Recorded Amiodarone HCl 200 mg PO DAILY 03/03/19 Amlodipine Besylate 2.5 mg PO DAILY 03/03/19 Aspirin E.C. [Ecotrin] 81 mg PO DAILY@0800 03/03/19 Atorvastatin Calcium 40 mg PO QHS 03/03/19 Carvedilol 12.5 mg PO BID 03/03/19 Furosemide [Lasix] 20 mg PO DAILY 03/03/19 Isosorbide Mononitrate [Isosorbide 30 mg PO DAILY 03/03/19 Mononitrate ER] Multivitamins,Ther W-Minerals 1 tab PO DAILY 03/03/19 [Multivitamin With Minerals] Nicotine [Nicoderm Cq (PBKC)] 14 mg TRANSDERM. DAILY 03/03/19 Thiamine Hydrochloride [Vitamin B1] 100 mg PO BID 03/03/19 Surgical History: - - Tonsillectomy, appendectomy, left retinal detachment surgery, cataract surgery. Psychiatric History: No pertinent psych hx Lives: Spouse/ Significant Other Smoking Status: Light Smoker (<10/day) Tobacco Use: Cigarettes Alcohol: Sober - Recent sobriety Drugs: None - *Family History Maternal History Items: - - Notes a maternal family history of hypertension. Paternal History Items: - - Father was healthy and unfortunately from complications at an older age from pneumonia but denied any history of heart disease, diabetes or cancer. - Physical Exam General: Alert, Cooperative HEENT: Atraumatic, PERRLA, EOMI Oral: Moist Mucosa Neck: Supple, Trachea Midline Lungs: Clear to auscultation, Normal air movement Cardiovascular: Regular rate, Regular Rhythm, Normal S1, Normal S2 Abdomen: Bowel Sounds Present, Soft, Non Tender Extremities: No clubbing, No edema Skin: No rashes Musculoskeletal: No Tenderness to Palpation of Joints or Extremities Neurological: Neuro grossly intact Vital Signs Temp Pulse Resp BP Pulse Ox 97.7 F L 69 16 183/63 H 94 03/04/19 08:45 03/04/19 11:00 03/04/19 10:52 03/04/19 08:45 03/04/19 08:45 Oxygen Flow Rate (L/min) 2 Oxygen Delivery Method Nasal Cannula Weight: 62.7 kg Body Mass Index (BMI) 21.5 Intake and Output for Last 24 Hours 03/02/19 03/03/19 03/04/19 23:59 23:59 23:59 Intake Total 625 / 625 905 / 905 Output Total 700 / 700 600 / 600 Balance -75 / -75 305 / 305 Microbiology Past 72 Hours 03/04/19 04:10 Gram Stain - Final Sputum, Expectorated/Coughed 03/03/19 16:00 Respiratory Panel (PCR) - Final Mucosa - Nasopharyngeal Rhinovirus 03/03/19 22:32 Streptococcus pneumoniae Antigen (M - Final Urine, Clean Catch 03/03/19 22:32 Legionella Antigen - Final Urine, Clean Catch Laboratory Tests Past 24 Hrs 03/03/19 03/03/19 03/04/19 16:45 16:45 05:56 WBC RBC Hgb Hct MCV MCH MCHC RDW Std Deviation RDW Coeff of Anuradha Plt Count MPV Immature Gran % (Auto) Neut % (Auto) Lymph % (Auto) [place] % (Auto) Eos % (Auto) Baso % (Auto) Absolute Neuts (auto) Absolute Lymphs (auto) Nucleated RBC % Differential Comment Macrocytosis Sodium 143 Potassium 4.2 Chloride 114 H Carbon Dioxide 18.0 L Anion Gap 11 BUN 83 H Creatinine 7.09 H Estim Creat Clear Calc 8.84 Est GFR (MDRD) Af Amer 10 L Est GFR (MDRD) Non-Af 8 L BUN/Creatinine Ratio 11.7 Glucose 140 H Hemoglobin A1c 5.4 Calcium 8.8 Magnesium 1.5 L TSH 1.14 03/04/19 03/04/19 05:56 05:56 WBC 7.8 RBC 2.19 L Hgb 7.8 L Hct 25.1 L MCV 114.6 H MCH 35.6 H MCHC 31.1 L RDW Std Deviation 58.7 H RDW Coeff of Anuradha 14.0 Plt Count 169 MPV 10.7 Immature Gran % (Auto) 0.400 Neut % (Auto) 93.5 H Lymph % (Auto) 5.5 L [place] % (Auto) 0.5 Eos % (Auto) 0.0 Baso % (Auto) 0.1 Absolute Neuts (auto) 7.3 Absolute Lymphs (auto) 0.43 L Nucleated RBC % 0 Differential Comment SCANNED Macrocytosis 2+ Sodium Potassium Chloride Carbon Dioxide Anion Gap BUN Creatinine Estim Creat Clear Calc Est GFR (MDRD) Af Amer Est GFR (MDRD) Non-Af BUN/Creatinine Ratio Glucose Hemoglobin A1c Calcium Magnesium 1.8 TSH Assessment/Plan All Active Problems (Last Updated 02/08/19 @ 16:19 by JENNY Ndiaye) Acute respiratory failure with hypoxia (Acute) COPD with acute exacerbation (Acute) Cardiac enzymes elevated (Resolved) Hypertensive emergency (Acute) Acute kidney failure (Acute) Hypertensive emergency (Acute) 1.Acute kidney injury likely prerenal on chronic kidney disease stage V previous baseline 4.9-5.4 the patient wants to talk with his before initiating dialysis. He is likely end-stage renal disease with cardiorenal syndrome. He had a recent renal ultrasound about 6 weeks ago which was reviewed. Stop diuretics gentle IV fluids. No emergent need for dialysis today. Risks of dialysis including seizures CVA [place] infection further kidney damage explained to the patient voiced understanding. 2 normal anion gap metabolic acidosis likely with renal failure. Will initiate sodium bicarbonate if the patient declines dialysis if not we will just initiate dialysis and reevaluate 3.HTN continue current medications 4. Anemia 1 dose of epogen continue to monitor transfuse as needed if he has a prolonged hospital stay will check iron stores d/w Stacie PHILIP If the patient agrees with dialysis will place tunneled dialysis catheter and initiate dialysis and place in [facility] where he resides
--- NOTE | 2019-03-04 13:48 | NURSING ---
O2 DECREASED TO 1L NC
[2019-03-04] MEDS: 0.9% Normal Saline 1,000 ML 100 ML IV (14:00)
[2019-03-04] MEDS: 0.9% Saline Lock 10 ML Syringe IV (14:01)
[2019-03-04] MEDS: Epoetin Alfa epbx 10,000 UNITS/ML 10000 UNIT SC (15:24)
[2019-03-04 15:36] LABS: Ferritin 679 ng/mL (26-388); Iron 50 ug/dL (65-175); Iron Binding Capacity,Total 202 ug/dL (250-450); PERCENT IRON SATURATION 24.8 % (15.0-55.0)
--- NOTE | 2019-03-04 17:32 | NURSING ---
o2 removed - will monitor
[2019-03-04] MEDS: Atorvastatin Calcium 40 MG Tablet PO (23:07)
[2019-03-05] VITALS (16 sets, daily range): BP systolic 100–126; BP diastolic 49–60; PULSE 62–78; RESP 14–20; TEMP 36.4–36.8; O2SAT 92–97
[2019-03-05] MEDS: Nitroglycerin (INPATIENT USE) 0.4 MG TAB.SUBL SUBLINGUAL (05:06)
--- NOTE | 2019-03-05 05:13 | EKG12_ITS ---
Test Reason : CP Blood Pressure : / mmHG Vent. Rate : 069 BPM Atrial Rate : 069 BPM P-R Int : 176 ms QRS Dur : 098 ms QT Int : 466 ms P-R-T Axes : 029 029 -71 degrees QTc Int : 499 ms Sinus rhythm with Premature atrial complexes Nonspecific T wave abnormality Prolonged QT Abnormal ECG When compared with ECG of 04-MAR-2019 04:33, MANUAL COMPARISON REQUIRED, DATA IS UNCONFIRMED Confirmed by FRANKO GARRETT ([id number]), newspaper editor SARWAT DUKES ([id number]) on 03/08/2019 10:31:48 AM Referred By: YOMI Confirmed By:FRANKO GARRETT
[2019-03-05 05:14] LABS: Hematocrit 21.6 % (40-54); Mean Corp Hgb Conc 32.4 g/dL (32-36); Mean Corpuscular Hgb 36.1 pg (27.0-32.0); Mean Corpuscular Volume 111.3 fL (80-94); Mean Platelet Vol. 11.2 fl (6.2-12.0); Platelet Count 178 K/mm3 (150-450); RBC Distribution Width CV 14.2 % (11.6-14.6); RBC Distribution Width SD 57.7 fl (35.1-43.9); Red Blood Count 1.94 M/mm3 (4.6-6.2)
[2019-03-05 05:25] LABS: Anion Gap 12 (5-15); BUN 98 mg/dL (7-18); BUN/Creat Ratio 14.7 RATIO (10-20); Calcium,Total 8.3 mg/dL (8.5-10.1); Chloride 113 mmol/L (98-107); Creatinine, Serum 6.66 mg/dL (0.70-1.30); EST Glomerular Filtration Rate 9 mL/min (>60); Est Glom Filt Rate - Afr Amer 11 mL/min (>60); Estimated Creatinine Clearance 9.41 ml/min; Glucose 124 mg/dL (74-106); Potassium 4.3 mmol/L (3.5-5.1); Sodium Level 141 mmol/L (136-145)
[2019-03-05] MEDS: Ipratropium/Albuterol Sulfate 3 ML AMPUL.NEB INHALATION ×4 (07:03→19:47)
[2019-03-05] MEDS: Aspirin E.C. 81 MG Tablet PO (07:54)
[2019-03-05] MEDS: Heparin Injection (Vial) 5,000 UNIT/ML VIAL 5000 UNIT SC (10:05)
[2019-03-05] MEDS: Amiodarone 200 MG Tablet PO (10:05)
[2019-03-05] MEDS: Isosorbide Mononitrate 30 MG Tablet PO (10:05)
[2019-03-05] MEDS: Carvedilol 12.5 MG Tablet PO ×2 (10:05→21:03)
[2019-03-05] MEDS: Ceftriaxone 1 GM/50 ML BAG IV (10:06)
[2019-03-05] MEDS: guaiFENesin 600 MG Tablet PO ×2 (10:06→21:03)
[2019-03-05] MEDS: amLODIPine 2.5 MG Tablet PO (10:06)
[2019-03-05] MEDS: Multivitamins,Ther W-Minerals Tablet 1 TABLET PO (10:07)
[2019-03-05] MEDS: Thiamine Hydrochloride 100 MG Tablet PO ×2 (11:12→22:27)
--- NOTE | 2019-03-05 12:41 | PCM.PROGNOTE ---
Subjective: sob better no cp Objective: nad - Physical Exam General: Alert, Oriented x3 HEENT: Atraumatic, EOMI Oral: Moist Mucosa Neck: Supple Lungs: Clear to auscultation, Normal air movement Cardiovascular: Regular rate, Regular Rhythm, Normal S1, Normal S2 Abdomen: Bowel Sounds Present, Soft, Non Tender Extremities: No cyanosis, No edema Skin: No rashes Neurological: Cranial nerves II-XII grossly intact, Muscle tone normal Vital Signs Temp Pulse Resp BP Pulse Ox 97.6 F L 68 16 126/60 H 97 03/05/19 07:38 03/05/19 10:57 03/05/19 10:57 03/05/19 07:38 03/05/19 07:38 Oxygen Flow Rate (L/min) 1 Oxygen Delivery Method Nasal Cannula Weight: 63.2 kg Body Mass Index (BMI) 21.5 Intake and Output for Last 24 Hours 03/03/19 03/04/19 03/05/19 23:59 23:59 23:59 Intake Total 625 / 625 1265 / 2545 1765 / 1765 Output Total 700 / 700 800 / 800 200 / 200 Balance -75 / -75 465 / 1745 1565 / 1565 Microbiology Past 72 Hours 03/04/19 04:10 Gram Stain - Final Sputum, Expectorated/Coughed Respiratory Culture - Preliminary GNR Poss Pseudomonas sp 03/03/19 16:00 Respiratory Panel (PCR) - Final Mucosa - Nasopharyngeal Rhinovirus 03/03/19 22:32 Streptococcus pneumoniae Antigen (M - Final Urine, Clean Catch 03/03/19 22:32 Legionella Antigen - Final Urine, Clean Catch Laboratory Tests Past 24 Hrs 03/04/19 03/05/19 03/05/19 05:56 04:40 04:40 WBC 13.0 H RBC 1.94 L Hgb 7.0 L Hct 21.6 L MCV 111.3 H MCH 36.1 H MCHC 32.4 RDW Std Deviation 57.7 H RDW Coeff of Anuradha 14.2 Plt Count 178 MPV 11.2 Sodium 141 Potassium 4.3 Chloride 113 H Carbon Dioxide 16.0 L Anion Gap 12 BUN 98 H Creatinine 6.66 H Estim Creat Clear Calc 9.41 Est GFR (MDRD) Af Amer 11 L Est GFR (MDRD) Non-Af 9 L BUN/Creatinine Ratio 14.7 Glucose 124 H Calcium 8.3 L Iron 50 L TIBC 202 L Iron Saturation 24.8 Ferritin 679 H Medical Necessity - Tobacco Use Smoking Status: Light Smoker (<10/day) Tobacco Use: Cigarettes Assessment/Plan All Active Problems (Last Updated 02/08/19 @ 16:19 by JENNY Ndiaye) Acute respiratory failure with hypoxia (Acute) COPD with acute exacerbation (Acute) Cardiac enzymes elevated (Resolved) Hypertensive emergency (Acute) Acute kidney failure (Acute) Hypertensive emergency (Acute) 1.Acute kidney injury likely prerenal on chronic kidney disease stage V previous baseline 4.9-5.4 He is likely end-stage renal disease with cardiorenal syndrome. He had a recent renal ultrasound about 6 weeks ago which was reviewed. Stop diuretics gentle IV fluids. No emergent need for dialysis today. Risks of dialysis including seizures CVA [place] infection further kidney damage explained to the patient voiced understanding and agrees to proceed with dialysis. 2 normal anion gap metabolic acidosis likely with renal failure. Will initiate sodium bicarbonate if the patient declines dialysis if not we will just initiate dialysis and reevaluate 3.HTN continue current medications 4. Anemia 1 dose of epogen continue to monitor transfuse as needed. He has adequate iron stores Check phosphorus in the morning d/w Stacie PHILIP Today the patient agrees with dialysis. I consulted surgery who will place tunneled dialysis catheter and initiate dialysis and place in [facility] where he resides.
--- NOTE | 2019-03-05 13:19 | PN_ITS ---
<Stacie Rolon - Last Filed: 03/05/19 13:45> Subjective: Patient seen and examined. Now agreeable to dialysis. Breathing improved. Reports anxiety attack overnight. - Physical Exam General: Alert, Oriented x3, Cooperative HEENT: Atraumatic, PERRLA, EOMI, Normocephalic Neck: Supple, No JVD, Negative Carotid Bruits Lungs: Diminished, - - Scattered rhonchi throughout Cardiovascular: Regular rate, Regular Rhythm, Normal S1, Normal S2, No murmurs Abdomen: Bowel Sounds Present, Soft, Non Tender, Non-Distended Extremities: No clubbing, No cyanosis, No edema, Capillary Refill Less than 3 Seconds Skin: No rashes, No breakdown Musculoskeletal: No Tenderness to Palpation of Joints or Extremities Neurological: Cranial nerves II-XII grossly intact, Neuro grossly intact Psych/Mental Status: Normal Affect, Appropriate Vital Signs Temp Pulse Resp BP Pulse Ox 97.6 F L 68 16 126/60 H 97 03/05/19 07:38 03/05/19 10:57 03/05/19 10:57 03/05/19 07:38 03/05/19 07:38 Oxygen Flow Rate (L/min) 1 Oxygen Delivery Method Nasal Cannula Weight: 139 lb 5.314 oz Body Mass Index (BMI) 21.5 Intake and Output for Last 24 Hours 03/03/19 03/04/19 03/05/19 23:59 23:59 23:59 Intake Total 625 / 625 1265 / 2545 1765 / 1765 Output Total 700 / 700 800 / 800 200 / 200 Balance -75 / -75 465 / 1745 1565 / 1565 Microbiology Past 72 Hours 03/04/19 04:10 Gram Stain - Final Sputum, Expectorated/Coughed Respiratory Culture - Preliminary GNR Poss Pseudomonas sp 03/03/19 16:00 Respiratory Panel (PCR) - Final Mucosa - Nasopharyngeal Rhinovirus 03/03/19 22:32 Streptococcus pneumoniae Antigen (M - Final Urine, Clean Catch 03/03/19 22:32 Legionella Antigen - Final Urine, Clean Catch Laboratory Tests Past 24 Hrs 03/04/19 03/05/19 03/05/19 05:56 04:40 04:40 WBC 13.0 H RBC 1.94 L Hgb 7.0 L Hct 21.6 L MCV 111.3 H MCH 36.1 H MCHC 32.4 RDW Std Deviation 57.7 H RDW Coeff of Anuradha 14.2 Plt Count 178 MPV 11.2 Sodium 141 Potassium 4.3 Chloride 113 H Carbon Dioxide 16.0 L Anion Gap 12 BUN 98 H Creatinine 6.66 H Estim Creat Clear Calc 9.41 Est GFR (MDRD) Af Amer 11 L Est GFR (MDRD) Non-Af 9 L BUN/Creatinine Ratio 14.7 Glucose 124 H Calcium 8.3 L Iron 50 L TIBC 202 L Iron Saturation 24.8 Ferritin 679 H Medical Necessity - Tobacco Use Smoking Status: Light Smoker (<10/day) Tobacco Use: Cigarettes Assessment/Plan All Active Problems (Last Updated 02/08/19 @ 16:19 by JENNY Ndiaye) Acute respiratory failure with hypoxia (Acute) COPD with acute exacerbation (Acute) Cardiac enzymes elevated (Resolved) Hypertensive emergency (Acute) Acute kidney failure (Acute) Hypertensive emergency (Acute) 1. Acute hypoxic respiratory insufficiency secondary to COPD exacerbation as a result of rhinovirus, mild acute on chronic diastolic CHF as well as possible community acquired pneumonia-continue supplement oxygen to maintain O2 above 90%. Ambulatory pulse ox prior to discharge. 2. Acute exacerbation of COPD secondary to acute rhinovirus- IV Solu-Medrol, reduce to twice daily. Anticipate transition to oral prednisone tomorrow. Albuterol and DuoNeb aerosols. Respiratory panel +rhinovirus. 3. Mild acute on chronic diastolic CHF-BNP 1059. Echocardiogram 01/21/19 demonstrated an EF of 65%, moderate left ventricular hypertrophy. CXR at outside facility read as congestion, small bilateral pleural effusions. However repeat CXR with right middle lobe infiltrate, no evidence of CHF. Further IV Lasix discontinued. 4. Right lower lobe Pseudomonas pneumonia-CXR at outside facility with R sided infiltrate versus scarring. Repeat chest x-ray this a.m. with right lower lobe infiltrate. Admission WBC 12.3. IV azithromycin and IV Rocephin. Urine for strep and Legionella negative. Sputum culture preliminary showing Pseudomonas, follow final culture. Albuterol and DuoNeb aerosols. 5. ETHAN on CKD stage V- Following with nephrology in [place]. Nephrology consulted. Creatinine significantly declining compared to prior labs. Patient agreeable to dialysis. General surgery consulted for tunneled dialysis catheter placement. Plan to initiate dialysis tomorrow. 6. Paroxysmal atrial fibrillation-continue home amiodarone regimen. Not on oral anticoagulation. 7. Peripheral vascular disease-continue outpatient follow-up with vascular. 8. Chronic macrocytic anemia/anemia of chronic disease- at baseline, trend CBC. 9. Hypertension-continue home amlodipine, carvedilol, isosorbide, Lasix regimen. 10. Hyperlipidemia- continue statin regimen. 11. Tobacco dependence-recently cut back, 4 to 5 cigarettes/day. Encourage cessation. 12. ETOH abuse-quit following recent hospital admission early January. Encouraged continued cessation. DVT prophylaxis- heparin sc This patient was seen by ALDEN Soriano under the supervision of Dr. Gong. <Hans Gong - Last Filed: 03/05/19 15:23> - Physical Exam General: Alert, Cooperative HEENT: Atraumatic, Normocephalic Lungs: Diminished, - Cardiovascular: Regular rate, Regular Rhythm, Normal S1, Normal S2, No murmurs Abdomen: Bowel Sounds Present, Soft, Non Tender, Non-Distended Extremities: No edema, No Calf Tenderness Skin: No rashes, No breakdown Psych/Mental Status: Normal Affect, Appropriate Vital Signs Temp Pulse Resp BP Pulse Ox 36.6 C 62 20 H 100/49 L 96 03/05/19 14:20 03/05/19 14:20 03/05/19 14:20 03/05/19 14:20 03/05/19 14:20 Oxygen Flow Rate (L/min) 1 Oxygen Delivery Method Nasal Cannula Weight: 63.2 kg Body Mass Index (BMI) 21.5 Intake and Output for Last 24 Hours 03/03/19 03/04/19 03/05/19 23:59 23:59 23:59 Intake Total 625 / 625 1265 / 2545 1765 / 1765 Output Total 700 / 700 800 / 800 200 / 200 Balance -75 / -75 465 / 1745 1565 / 1565 Microbiology Past 72 Hours 03/04/19 04:10 Gram Stain - Final Sputum, Expectorated/Coughed Respiratory Culture - Preliminary GNR Poss Pseudomonas sp 03/03/19 16:00 Respiratory Panel (PCR) - Final Mucosa - Nasopharyngeal Rhinovirus 03/03/19 22:32 Streptococcus pneumoniae Antigen (M - Final Urine, Clean Catch 03/03/19 22:32 Legionella Antigen - Final Urine, Clean Catch Laboratory Tests Past 24 Hrs 03/04/19 03/05/19 03/05/19 05:56 04:40 04:40 WBC 13.0 H RBC 1.94 L Hgb 7.0 L Hct 21.6 L MCV 111.3 H MCH 36.1 H MCHC 32.4 RDW Std Deviation 57.7 H RDW Coeff of Anuradha 14.2 Plt Count 178 MPV 11.2 Sodium 141 Potassium 4.3 Chloride 113 H Carbon Dioxide 16.0 L Anion Gap 12 BUN 98 H Creatinine 6.66 H Estim Creat Clear Calc 9.41 Est GFR (MDRD) Af Amer 11 L Est GFR (MDRD) Non-Af 9 L BUN/Creatinine Ratio 14.7 Glucose 124 H Calcium 8.3 L Iron 50 L TIBC 202 L Iron Saturation 24.8 Ferritin 679 H Assessment/Plan Patient seen and examined independently. Data reviewed. I agree with the above note by the nurse practitioner. 1. Acute hypoxic respiratory insufficiency * POA * respiratory failure ruled out * 2/2 AECOPD, pneumonia and rhinovirus * wean oxygen as tolerated 2. AECOPD * improving * may have been exacerbated by rhinovirus and pneumonia * wean steroids * continue BDs 3. Suspected pneumococcal pneumonia * RLL infiltrate on CXR * strep and legionella urinary antigens negative * continue azithro and CTX * pulm toilet 4. acute rhinovirus infection * supportive mgmt. 5. HFpEF * EF 65% * compensated * CXR c/w pneumonia, not CHF * furosemide d/c'd 6. ETHAN * creatinine 6.66, previously 5.4 on 01/23 * patient in agreement with TRAINING ENGINEER. * plan for HD catheter, then HD Code Visit Inpatient E&M: 77929 Subs Hosp L2
[2019-03-05] MEDS: Sodium Bicarbonate 650 MG Tablet PO ×3 (14:24→21:03)
--- NOTE | 2019-03-05 14:27 | CASEMGMT ---
Patient and his at aware that patient's Healthcare POA and Healthcare LW are not on file at [facility]. Melonie RICHARDS MSW
--- NOTE | 2019-03-05 14:47 | CON.PCM_ITS ---
Problem List (1) Acute kidney failure Status: Acute Qualifiers: Acute renal failure type: unspecified Qualified Code(s): N17.9 - Acute kidney failure, unspecified Reason for Consult Date of Consultation: 03/05/19 Reason for Consultation: Need for vascular access for dialysis History of Present Illness: The patient is a 68 year old M who is here with acute on chronic renal failure. Patient is consenting for dialysis catheter and is planning on starting dialysis tomorrow. Past Medical History Past Medical History (Chronic Problems): Chronic Problems (Last Updated 02/08/19 @ 16:19 by JENNY Ndiaye) Atrial fibrillation (Chronic) Kidney disease (Chronic) Tobacco use (Chronic) Hypertension (Chronic) Hyperlipidemia (Chronic) Alcohol abuse (Chronic) PAD (peripheral artery disease) (Chronic) Medical History: Medical History (Last Updated 02/08/19 @ 16:19 by JENNY Ndiaye) Atrial fibrillation (Chronic) I48.91 COPD with acute exacerbation (Acute) J44.1 Kidney disease (Chronic) N28.9 Cardiac enzymes elevated (Resolved) R74.8 Hypertensive emergency (Acute) I16.1 Hypertension (Chronic) I10 Hyperlipidemia (Chronic) E78.5 Alcohol abuse (Chronic) F10.10 PAD (peripheral artery disease) (Chronic) I73.9 Allergies No Known Allergies Allergy (Verified 02/01/19 15:28) Home Medications: Ambulatory Orders Medication Instructions Recorded Amiodarone HCl 200 mg PO DAILY 03/03/19 Amlodipine Besylate 2.5 mg PO DAILY 03/03/19 Aspirin E.C. [Ecotrin] 81 mg PO DAILY@0800 03/03/19 Atorvastatin Calcium 40 mg PO QHS 03/03/19 Carvedilol 12.5 mg PO BID 03/03/19 Furosemide [Lasix] 20 mg PO DAILY 03/03/19 Isosorbide Mononitrate [Isosorbide 30 mg PO DAILY 03/03/19 Mononitrate ER] Multivitamins,Ther W-Minerals 1 tab PO DAILY 03/03/19 [Multivitamin With Minerals] Nicotine [Nicoderm Cq (PBKC)] 14 mg TRANSDERM. DAILY 03/03/19 Thiamine Hydrochloride [Vitamin B1] 100 mg PO BID 03/03/19 Surgical History: - - Tonsillectomy, appendectomy, left retinal detachment surgery, cataract surgery. Psychiatric History: No pertinent psych hx Lives: Spouse/ Significant Other Smoking Status: Light Smoker (<10/day) Tobacco Use: Cigarettes Alcohol: Sober - Recent sobriety Drugs: None - *Family History Maternal History Items: - - Notes a maternal family history of hypertension. Paternal History Items: - - Father was healthy and unfortunately from complications at an older age from pneumonia but denied any history of heart disease, diabetes or cancer. Review of Systems Constitutional: Denies: Anorexia, Chills HEENT: Denies: Difficulty Swallowing Respiratory: Denies: Cough, Hemoptysis Gastrointestinal: Denies: Abdominal Pain, Nausea, Vomiting Genitourinary: Denies: Dysuria, Frequency Skin: Denies: Jaundice Psychiatric: Reports: Anxiety Hematologic/ Lymphatic: Reports: Easy Bleeding. Denies: Anemia - Physical Exam General: Alert, Oriented x3 Neck: No JVD Lungs: Normal air movement Cardiovascular: Regular rate, Regular Rhythm Abdomen: Soft, Non Tender, Non-Distended Vital Signs Temp Pulse Resp BP Pulse Ox 97.9 F 62 20 H 100/49 L 96 03/05/19 14:20 03/05/19 14:20 03/05/19 14:20 03/05/19 14:20 03/05/19 14:20 Oxygen Flow Rate (L/min) 1 Oxygen Delivery Method Nasal Cannula Weight: 139 lb 5.314 oz Body Mass Index (BMI) 21.5 Intake and Output for Last 24 Hours 03/03/19 03/04/19 03/05/19 23:59 23:59 23:59 Intake Total 625 / 625 1265 / 2545 1765 / 1765 Output Total 700 / 700 800 / 800 200 / 200 Balance -75 / -75 465 / 1745 1565 / 1565 Microbiology Past 72 Hours 03/04/19 04:10 Gram Stain - Final Sputum, Expectorated/Coughed Respiratory Culture - Preliminary GNR Poss Pseudomonas sp 03/03/19 16:00 Respiratory Panel (PCR) - Final Mucosa - Nasopharyngeal Rhinovirus 03/03/19 22:32 Streptococcus pneumoniae Antigen (M - Final Urine, Clean Catch 03/03/19 22:32 Legionella Antigen - Final Urine, Clean Catch Laboratory Tests Past 24 Hrs 03/04/19 03/05/19 03/05/19 05:56 04:40 04:40 WBC 13.0 H RBC 1.94 L Hgb 7.0 L Hct 21.6 L MCV 111.3 H MCH 36.1 H MCHC 32.4 RDW Std Deviation 57.7 H RDW Coeff of Anuradha 14.2 Plt Count 178 MPV 11.2 Sodium 141 Potassium 4.3 Chloride 113 H Carbon Dioxide 16.0 L Anion Gap 12 BUN 98 H Creatinine 6.66 H Estim Creat Clear Calc 9.41 Est GFR (MDRD) Af Amer 11 L Est GFR (MDRD) Non-Af 9 L BUN/Creatinine Ratio 14.7 Glucose 124 H Calcium 8.3 L Iron 50 L TIBC 202 L Iron Saturation 24.8 Ferritin 679 H Assessment/Plan All Active Problems (Last Updated 02/08/19 @ 16:19 by JENNY Ndiaye) Acute respiratory failure with hypoxia (Acute) COPD with acute exacerbation (Acute) Cardiac enzymes elevated (Resolved) Hypertensive emergency (Acute) Acute kidney failure (Acute) Hypertensive emergency (Acute) 68-year-old male with acute on chronic renal failure 1. I discussed tunneled temporary dialysis catheter placement with the patient. I discussed the risks including but not limited to bleeding, infection, pneumothorax, line infection, DVT. The patient understands the risks and is willing to proceed with temporary dialysis catheter placement tomorrow. Right side is been selected. 2. N.p.o. after midnight, Ancef has been ordered for preop dosage. Rafael Storm MD Pager: [facility] [address] [place] [address], [address] [place] [address] Office:
[2019-03-05] MEDS: Atorvastatin Calcium 40 MG Tablet PO (21:03)
[2019-03-06] VITALS (21 sets, daily range): BP systolic 107–138; BP diastolic 51–73; PULSE 57–72; RESP 16–20; TEMP 36.2–37; O2SAT 93–98; BMI 21.8; BMI 21.6
[2019-03-06] MEDS: 0.9% Saline Lock 10 ML Syringe IV ×3 (02:53→12:29)
--- NOTE | 2019-03-06 05:00 | RAD_ITS ---
STUDY: X-RAY CHEST REASON FOR EXAM: Male, 68 years old. Cough TECHNIQUE: Single AP portable view of the chest. COMPARISON: 03/04/2019 FINDINGS: EKG electrodes are seen. There is stable infiltration in the right middle lobe as well as patchy infiltrate in the right lower lobe. There is blunting of the right costophrenic angle consistent with small pleural effusion has decreased since the study. Normal size heart. Normal mediastinum and susan. Normal visualized pulmonary arteries. There is atherosclerotic calcification of the aortic arch with tortuosity. There is demineralization of the osseous structures. Normal visualized ribs, clavicles, and shoulders. There is no demonstrated abnormality of the visualized soft tissue structures of the upper abdomen. RAD/Chest 1 View (Portable) IMPRESSION: Right middle lobe and right lower lobe pneumonia is stable since the previous study. Small right pleural effusion. Electronically Signed: Deborah Ely, at 5:58 EDT Tel , Service support ,
--- NOTE | 2019-03-06 05:00 | EKG12_ITS ---
Test Reason : AM EKG Blood Pressure : / mmHG Vent. Rate : 068 BPM Atrial Rate : 068 BPM P-R Int : 174 ms QRS Dur : 098 ms QT Int : 466 ms P-R-T Axes : 046 039 223 degrees QTc Int : 495 ms Normal sinus rhythm Nonspecific T wave abnormality Prolonged QT Abnormal ECG When compared with ECG of 05-MAR-2019 05:18, MANUAL COMPARISON REQUIRED, DATA IS UNCONFIRMED Confirmed by FRANKO GARRETT ([id number]), metropolitan editor SARWAT DUKES ([id number]) on 03/08/2019 10:38:00 AM Referred By: BOB Confirmed By:FRANKO GARRETT
[2019-03-06 05:33] LABS: Absolute Lymphocyte Count 0.55 X10^3/uL (0.83-4.51); Absolute Neutrophil Count 12.5 X10^3/uL (2.0-7.7); Basophil# 0.01 X10^3/uL; Basophil% 0.1 % (0-1); Hematocrit 22.4 % (40-54); Hemoglobin 7.5 g/dL (13.0-16.5); Lymphocyte # 0.55 X10^3/ul (4.0); Lymphocyte % 3.9 % (19-41); Mean Corp Hgb Conc 33.5 g/dL (32-36); Mean Corpuscular Hgb 37.3 pg (27.0-32.0); Mean Corpuscular Volume 111.4 fL (80-94); Mean Platelet Vol. 10.7 fl (6.2-12.0); Monocyte% 7.1 % (0-10); NRBC Flagged by Analyzer 0 % (0-5); Neutrophil # 12.47 X10^3/uL (2.7-7.7); Neutrophil % 87.8 % (47-70); POSITIVE DIFFERENTIAL YES; Platelet Count 204 K/mm3 (150-450); RBC Distribution Width SD 57.6 fl (35.1-43.9); Red Blood Count 2.01 M/mm3 (4.6-6.2); White Blood Count 14.2 K/mm3 (4.4-11.0)
[2019-03-06 05:36] LABS: Differential Indicated SCAN CRITERIA MET
[2019-03-06 05:41] LABS: International Normalized Ratio 1.2; Prothrombin Time (Protime)PT. 14.8 SECONDS (11.7-14.9)
[2019-03-06 05:42] LABS: Partial Thromboplast Time 29.5 Seconds (24.1-36.2)
[2019-03-06 05:56] LABS: AST(SGOT) 14 U/L (15-37); Alanine Aminotransfer ALT/SGPT 21 U/L (16-61); Albumin, Serum 2.7 g/dL (3.2-5.0); Alkaline Phosphatase 53 U/L (45-117); Anion Gap 13 (5-15); BUN 115 mg/dL (7-18); BUN/Creat Ratio 15.7 RATIO (10-20); Bilirubin, Direct 0.09 mg/dL (0.00-0.30); Calcium,Total 8.3 mg/dL (8.5-10.1); Chloride 111 mmol/L (98-107); Creatinine, Serum 7.32 mg/dL (0.70-1.30); EST Glomerular Filtration Rate 8 mL/min (>60); Est Glom Filt Rate - Afr Amer 10 mL/min (>60); Estimated Creatinine Clearance 8.63 ml/min; Globulin 3.5 g/dL (2.2-4.2); Glucose 119 mg/dL (74-106); Phosphorus 4.8 mg/dL (2.5-4.9); Potassium 4.2 mmol/L (3.5-5.1); Protein, Total 6.2 g/dL (6.4-8.2); Sodium Level 141 mmol/L (136-145)
[2019-03-06 06:50] LABS: Differential Comment SCANNED; Macrocytosis 3+
[2019-03-06] MEDS: Ipratropium/Albuterol Sulfate 3 ML AMPUL.NEB INHALATION ×3 (07:39→19:38)
[2019-03-06] MEDS: predniSONE 20 MG Tablet 40 MG PO (08:22)
[2019-03-06] MEDS: Carvedilol 12.5 MG Tablet PO ×2 (09:18→21:03)
[2019-03-06] MEDS: amLODIPine 2.5 MG Tablet PO (09:18)
[2019-03-06] MEDS: Isosorbide Mononitrate 30 MG Tablet PO (09:18)
[2019-03-06] MEDS: guaiFENesin 600 MG Tablet PO ×2 (09:18→21:07)
[2019-03-06] MEDS: Amiodarone 200 MG Tablet PO (09:18)
[2019-03-06] MEDS: Sodium Bicarbonate 650 MG Tablet PO ×2 (09:19→21:03)
[2019-03-06] MEDS: Ceftriaxone 1 GM/50 ML BAG IV (09:19)
--- NOTE | 2019-03-06 09:47 | CASEMGMT ---
Per Dr. Arechiga, pt to be set up with OP dialysis. Pt states that he would like the [facility] in [place] as it is the closest for him and states his preference would be MWF in the am. Referral faxed to [facility] at this time. Pt has not had cath placed, hep b panel drawn or 1st treatment yet but this RN CM will send this info once obtained. Pt states no further questions/concerns/needs at this time. SStaten RN CM
[2019-03-06] MEDS: Cefazolin 2 GM in 0.9% Normal Saline 100 ML IV (12:29)
--- NOTE | 2019-03-06 12:47 | PCM.PROGNOTE ---
Subjective: denies rtness of breath or chest pain feels better overall - Physical Exam General: Alert, Oriented x3, Cooperative HEENT: Atraumatic, PERRLA, EOMI, Normocephalic Neck: Supple, No JVD, Negative Carotid Bruits Lungs: Clear to auscultation, Normal air movement Cardiovascular: Regular rate, No murmurs Abdomen: Bowel Sounds Present, Soft, Non Tender Extremities: No edema, Capillary Refill Less than 3 Seconds Skin: No rashes, No breakdown Musculoskeletal: No Tenderness to Palpation of Joints or Extremities Neurological: Cranial nerves II-XII grossly intact Psych/Mental Status: Normal Affect, Appropriate Vital Signs Temp Pulse Resp BP Pulse Ox 98.0 F 67 20 H 124/60 H 95 03/06/19 09:02 03/06/19 10:50 03/06/19 10:50 03/06/19 09:02 03/06/19 09:02 Oxygen Flow Rate (L/min) 1 Oxygen Delivery Method Nasal Cannula Weight: 63.2 kg Body Mass Index (BMI) 21.8 Intake and Output for Last 24 Hours 03/04/19 03/05/19 03/06/19 23:59 23:59 23:59 Intake Total 1265 / 2545 1865 / 1865 50 / 50 Output Total 800 / 800 200 / 200 300 / 300 Balance 465 / 1745 1665 / 1665 -250 / -250 Microbiology Past 72 Hours 03/04/19 04:10 Gram Stain - Final Sputum, Expectorated/Coughed Respiratory Culture - Final Pseudomonas aeroginosa 03/03/19 16:00 Respiratory Panel (PCR) - Final Mucosa - Nasopharyngeal Rhinovirus 03/03/19 22:32 Streptococcus pneumoniae Antigen (M - Final Urine, Clean Catch 03/03/19 22:32 Legionella Antigen - Final Urine, Clean Catch Laboratory Tests Past 24 Hrs 03/06/19 03/06/19 03/06/19 05:05 05:05 05:05 WBC 14.2 H RBC 2.01 L Hgb 7.5 L Hct 22.4 L MCV 111.4 H MCH 37.3 H MCHC 33.5 RDW Std Deviation 57.6 H RDW Coeff of Anuradha 14.0 Plt Count 204 MPV 10.7 Immature Gran % (Auto) 1.100 H Neut % (Auto) 87.8 H Lymph % (Auto) 3.9 L [place] % (Auto) 7.1 Eos % (Auto) 0.0 Baso % (Auto) 0.1 Absolute Neuts (auto) 12.5 H Absolute Lymphs (auto) 0.55 L Nucleated RBC % 0 Differential Comment SCANNED Macrocytosis 3+ PT 14.8 INR 1.2 APTT 29.5 Sodium 141 Potassium 4.2 Chloride 111 H Carbon Dioxide 17.0 L Anion Gap 13 BUN 115 H* Creatinine 7.32 H Estim Creat Clear Calc 8.63 Est GFR (MDRD) Af Amer 10 L Est GFR (MDRD) Non-Af 8 L BUN/Creatinine Ratio 15.7 Glucose 119 H Calcium 8.3 L Phosphorus 4.8 Total Bilirubin 0.40 Direct Bilirubin 0.09 AST 14 L ALT 21 Alkaline Phosphatase 53 Total Protein 6.2 L Albumin 2.7 L Globulin 3.5 Medical Necessity - Tobacco Use Smoking Status: Light Smoker (<10/day) Tobacco Use: Cigarettes Assessment/Plan All Active Problems (Last Updated 02/08/19 @ 16:19 by JENNY Ndiaye) Acute respiratory failure with hypoxia (Acute) COPD with acute exacerbation (Acute) Cardiac enzymes elevated (Resolved) Hypertensive emergency (Acute) Acute kidney failure (Acute) Hypertensive emergency (Acute) 1.Acute kidney injury likely prerenal on chronic kidney disease stage V previous baseline 4.9-5.4 He is likely end-stage renal disease with cardiorenal syndrome. He had a recent renal ultrasound about 6 weeks ago which was reviewed. Stop diuretics gentle IV fluids. No emergent need for dialysis today. Risks of dialysis including seizures CVA NC infection further kidney damage explained to the patient voiced understanding and agrees to proceed with dialysis. For tunnel catheter placement today and then dialysis today and tomorrow 2 normal anion gap metabolic acidosis likely with renal failure. We will initiate dialysis today 3.HTN continue current medications 4. Anemia s/p 1 dose of epogen continue to monitor transfuse as needed. He has adequate iron stores CM working to place in [facility] where he resides. OK to d/c from standpoint when the patient has a chair in the dialysis unit. d/w primary team and patient
[2019-03-06] MEDS: 0.9% Normal Saline 1,000 ML 30 ML IV (13:28)
[2019-03-06] MEDS: Heparin 10,000 UNITS/10 ML Vial 10000 UNITS (14:52)
--- NOTE | 2019-03-06 15:03 | RAD_ITS ---
STUDY: X-RAY CHEST REASON FOR EXAM: Male, 68 years old. Hemodialysis catheter placement. TECHNIQUE: Single AP portable view of the chest. COMPARISON: Comparison is made with prior study March 06, 2019. FINDINGS: A right sided hemodialysis catheter is seen with the tip in the midportion of the superior vena cava. Improved aeration of the right basilar infiltrate. There is no demonstrated pleural abnormality. Normal size heart. Normal mediastinum and susan. Normal visualized pulmonary arteries. There is atherosclerotic calcification of the aortic arch with tortuosity. Normal visualized thoracic spine. Normal visualized ribs, clavicles, and shoulders. There is no demonstrated abnormality of the visualized soft tissue structures of the upper abdomen. RAD/CXR for Line Placement IMPRESSION: The tip of the right hemodialysis catheter is in the midportion of the superior vena cava. Improved aeration of the right basilar infiltrate. Electronically Signed: Davis Najera, at 15:27 EDT , Service support ,
--- NOTE | 2019-03-06 15:04 | OP.PCM_ITS ---
Problem List (1) Acute kidney failure Status: Acute Qualifiers: Acute renal failure type: unspecified Qualified Code(s): N17.9 - Acute kidney failure, unspecified Report of Operation Date of Procedure: 03/06/19 Pre-Operative Diagnosis: Need for dialysis access. Acute kidney injury Post-Operative Diagnosis: Same Surgery/Procedure Performed:: Ultrasound and fluoroscopy guided right IJ temporary tunneled dialysis catheter placement Description of Procedure: The patient was brought back to the operating room and MAC anesthesia was induced. The right neck and chest were prepped in the usual sterile fashion. The patient was placed in steep Trendelenburg position. Ultrasound was used to localize the right IJ. It appeared patent. Next local anesthetic was used to anesthetize the skin overlying the IJ. An 11 blade was used to make an incision in the skin. Next a counterincision was made after anesthetizing the right c hest wall skin. Using a needle under ultrasound guidance the needle was placed into the right IJ and blood was aspirated. A guidewire was placed through this without resistance. Fluoroscopy was used to identify that this was in the IJ. Guidewire was left in place and the needle was removed and serial dilators were placed over this. Next the peel-away catheter was then placed over this. Next the tunneler was placed onto the catheter and it was placed through the chest incision up into the neck incision. It was brought out and the tunneler was removed and the catheter was placed through the peel-away sheath. The peel-away sheath was peeled away and the catheter was made flush with the skin. Fluoroscopy confirmed that this was in place with no kinking and it appeared to be in the superior vena cava. Next both ports were aspirated and flushed with saline. Both flushed and aspirated well. Next the skin incision in the neck was closed with an interrupted 3-0 Vicryl suture. The catheter was sutured to the chest wall using 3-0 nylon sutures. A silver dressing was placed at the skin insertion site and both catheters were flushed with 2 cc each of heparin. They were both capped. Patient tolerated the procedure well was brought back in stable condition. Grafts/Implants Used: Curved palindrome temporary dialysis catheter - Admit VTE Documentation VTE Mechan Device Prophylaxis: SCD's
--- NOTE | 2019-03-06 15:24 | PCM.PN.HOSP ---
Patient Problems: Active and Suspected Problems (Last Updated 02/08/19 @ 16:19 by JENNY Ndiaye) Acute respiratory failure with hypoxia (Acute) Acute kidney injury (Suspected) Subjective: No new complaints. Anxious about dialysis catheter. Vitals/I&O's: Vital Signs Temp Pulse Resp BP Pulse Ox 36.2 C L 58 L 18 116/63 98 03/06/19 15:01 03/06/19 15:10 03/06/19 15:10 03/06/19 15:10 03/06/19 15:10 Oxygen Flow Rate (L/min) 2 Oxygen Delivery Method Nasal Cannula Weight: 63.2 kg Body Mass Index (BMI) 21.8 Intake and Output for Last 24 Hours 03/04/19 03/05/19 03/06/19 23:59 23:59 23:59 Intake Total 1265 / 2545 1865 / 1865 160 / 160 Output Total 800 / 800 200 / 200 300 / 300 Balance 465 / 1745 1665 / 1665 -140 / -140 General: Alert, No apparent distress HEENT: Atraumatic, Normocephalic Oral: Moist Mucosa, No Gingival or Mucosal Lesions/ Ulcerations Neck: No Nodes, Thyroid Normal Size and Texture Lungs: Clear to auscultation, Normal air movement, No rhonchi, No wheeze Cardiovascular: Regular rate, Regular Rhythm, Normal S1, Normal S2 Abdomen: Bowel Sounds Present, Soft Psych/Mental Status: Appropriate, Anxious Microbiology Past 72 Hours 03/04/19 04:10 Sputum, Expectorated/Coughed Gram Stain - Final 03/04/19 04:10 Sputum, Expectorated/Coughed Respiratory Culture - Final Pseudomonas aeroginosa 03/03/19 16:00 Mucosa - Nasopharyngeal Respiratory Panel (PCR) - Final Rhinovirus 03/03/19 22:32 Urine, Clean Catch Streptococcus pneumoniae Antigen (M - Final 03/03/19 22:32 Urine, Clean Catch Legionella Antigen - Final Laboratory Results 03/06/19 05:05: Sodium 141, Potassium 4.2, Chloride 111 H, Carbon Dioxide 17.0 L, Anion Gap 13, BUN 115 H*, Creatinine 7.32 H, Estim Creat Clear Calc 8.63, Est GFR (MDRD) Af Amer 10 L, Est GFR (MDRD) Non-Af 8 L, BUN/Creatinine Ratio 15.7, Glucose 119 H, Calcium 8.3 L, Phosphorus 4.8, Total Bilirubin 0.40, Direct Bilirubin 0.09, AST 14 L, ALT 21, Alkaline Phosphatase 53, Total Protein 6.2 L, Albumin 2.7 L, Globulin 3.5 03/06/19 05:05: WBC 14.2 H, RBC 2.01 L, Hgb 7.5 L, Hct 22.4 L, MCV 111.4 H, MCH 37.3 H, MCHC 33.5, RDW Std Deviation 57.6 H, RDW Coeff of Anuradha 14.0, Plt Count 204, MPV 10.7, Immature Gran % (Auto) 1.100 H, Neut % (Auto) 87.8 H, Lymph % (Auto) 3.9 L, [place] % (Auto) 7.1, Eos % (Auto) 0.0, Baso % (Auto) 0.1, Absolute Neuts (auto) 12.5 H, Absolute Lymphs (auto) 0.55 L, Nucleated RBC % 0, Differential Comment SCANNED, Macrocytosis 3+ 03/06/19 05:05: PT 14.8, INR 1.2, APTT 29.5 Current Medications Acetaminophen (Tylenol) 650 mg PO Q6H PRN PRN PRN Reason: Pain Score 1-3/Temp > 100.7 F Albuterol Sulfate (Ventolin Aerosols) 2.5 mg INHALATION Q2H PRN PRN PRN Reason: SOB/Wheezing Last Admin: 03/04/19 04:18 Dose: 2.5 mg Documented by: Albuterol/Ipratropium (Duoneb) 3 ml INHALATION Q4HWA.RT [facility] Last Admin: 03/06/19 14:45 Dose: Not Given Documented by: Amiodarone HCl (Cordarone) 200 mg PO DAILY [facility] Last Admin: 03/06/19 09:18 Dose: 200 mg Documented by: Amlodipine Besylate (Norvasc) 2.5 mg PO DAILY [facility] Last Admin: 03/06/19 09:18 Dose: 2.5 mg Documented by: Aspirin (Ecotrin) 81 mg PO DAILY@0800 [facility] Last Admin: 03/06/19 08:24 Dose: Not Given Documented by: Atorvastatin Calcium (Lipitor) 40 mg PO QHS [facility] Last Admin: 03/05/19 21:03 Dose: 40 mg Documented by: Carvedilol (Coreg) 12.5 mg PO BID [facility] Last Admin: 03/06/19 09:18 Dose: 12.5 mg Documented by: Guaifenesin (Mucinex) 600 mg PO BID [facility] Last Admin: 03/06/19 09:18 Dose: 600 mg Documented by: Hydralazine HCl (Apresoline Iv) 10 mg IV Q4H PRN PRN PRN Reason: SBP > 160 Ceftriaxone Sodium (Rocephin) 1 gm in 50 mls @ 100 mls/hr IV Q24 [facility] Last Infusion: 03/06/19 09:49 Dose: Infused Documented by: Sodium Chloride () 1,000 mls @ 30 mls/hr IV .[id number] [facility] Last Admin: 03/06/19 13:28 Dose: 30 mls/hr Documented by: Isosorbide Mononitrate (Imdur) 30 mg PO DAILY [facility] Last Admin: 03/06/19 09:18 Dose: 30 mg Documented by: Multivitamins/Minerals (Multivitamin With Minerals) 1 tablet PO DAILY [facility] Last Admin: 03/06/19 08:25 Dose: Not Given Documented by: Nicotine (Nicoderm Cq (Pbkc)) 14 mg TRANSDERM. DAILY [facility] Last Admin: 03/06/19 09:18 Dose: Not Given Documented by: Nitroglycerin (Nitrostat) 0.4 mg SUBLINGUAL Q5M PRN PRN Reason: CARDIAC/CHEST PAIN Last Admin: 03/05/19 05:06 Dose: 1 tab Documented by: Ondansetron HCl (Zofran) 4 mg IV Q8H PRN PRN PRN Reason: NAUSEA/VOMITING Prednisone () 40 mg PO DAILY@0800 [facility] Last Admin: 03/06/19 08:22 Dose: 40 mg Documented by: Sodium Bicarbonate (Sodium Bicarbonate) 650 mg PO 4X/DAY [facility] Last Admin: 03/06/19 13:21 Dose: Not Given Documented by: Sodium Chloride () 5 - 15 ml IV UD PRN PRN Reason: SALINE FLUSH Last Admin: 03/06/19 12:29 Dose: 10 ml Documented by: Thiamine HCl (Vitamin B1) 100 mg PO BID [facility] Last Admin: 03/06/19 08:24 Dose: Not Given Documented by: STROKE Vital Signs/Narrative: Vital Signs Temp Pulse Resp BP Pulse Ox 03/06/19 15:10 58 L 18 116/63 98 03/06/19 15:05 58 L 18 115/60 98 03/06/19 15:01 36.2 C L 59 L 18 110/56 L 97 Medical Necessity - Tobacco Use Smoking Status: Light Smoker (<10/day) Tobacco Use: Cigarettes Assessment/Plan All Active Problems (Last Updated 02/08/19 @ 16:19 by JENNY Ndiaye) Acute respiratory failure with hypoxia (Acute) COPD with acute exacerbation (Acute) Cardiac enzymes elevated (Resolved) Hypertensive emergency (Acute) Acute kidney failure (Acute) Hypertensive emergency (Acute) 1. Acute hypoxic respiratory insufficiency POA respiratory failure ruled out 2/2 AECOPD, pneumonia and rhinovirus wean oxygen as tolerated improving 2. AECOPD improving may have been exacerbated by rhinovirus and pneumonia wean steroids continue BDs 3. Suspected pneumococcal pneumonia RLL infiltrate on CXR strep and legionella urinary antigens negative continue azithro and CTX pulm toilet 4. acute rhinovirus infection supportive mgmt. 5. HFpEF EF 65% compensated CXR c/w pneumonia, not CHF furosemide d/c'd 6. ETHAN creatinine 6.66, previously 5.4 on 01/23 patient in agreement with [employer]. plan for HD catheter, then HD Code Visit Inpatient E&M: 17453 Subs Hosp L2
--- NOTE | 2019-03-06 18:12 | DIALYSIS ---
First hemodialysis tx completed x 2 hours after tx was delayed due to line placement. Pt tolerated tx well, fluid removed 500ml as ordered. Vitals stable throughout tx. Verbal report given to HILDA Guallpa post tx. Next HD tx tomorrow 03/07/19
[2019-03-06] MEDS: Heparin 10,000 UNITS/10 ML Vial IV (18:40)
[2019-03-06] MEDS: Thiamine Hydrochloride 100 MG Tablet PO (21:03)
[2019-03-06] MEDS: Atorvastatin Calcium 40 MG Tablet PO (21:04)
[2019-03-07] VITALS (16 sets, daily range): BP systolic 105–144; BP diastolic 45–73; PULSE 53–80; RESP 16–20; TEMP 35.6–36.8; O2SAT 95–100
[2019-03-07 06:44] LABS: Absolute Lymphocyte Count 0.64 X10^3/uL (0.83-4.51); Absolute Neutrophil Count 9.4 X10^3/uL (2.0-7.7); Basophil# 0.01 X10^3/uL; Basophil% 0.1 % (0-1); Hematocrit 23.5 % (40-54); Hemoglobin 7.8 g/dL (13.0-16.5); Lymphocyte # 0.64 X10^3/ul (4.0); Lymphocyte % 5.7 % (19-41); Mean Corp Hgb Conc 33.2 g/dL (32-36); Mean Corpuscular Hgb 36.3 pg (27.0-32.0); Mean Corpuscular Volume 109.3 fL (80-94); Mean Platelet Vol. 10.8 fl (6.2-12.0); Monocyte# 1.15 X10^3/uL; Monocyte% 10.2 % (0-10); NRBC Flagged by Analyzer 0.4 % (0-5); Neutrophil # 9.37 X10^3/uL (2.7-7.7); Neutrophil % 83.1 % (47-70); Platelet Count 219 K/mm3 (150-450); RBC Distribution Width CV 13.8 % (11.6-14.6); RBC Distribution Width SD 55.3 fl (35.1-43.9); Red Blood Count 2.15 M/mm3 (4.6-6.2); White Blood Count 11.3 K/mm3 (4.4-11.0)
[2019-03-07 06:57] LABS: BUN 84 mg/dL (7-18); BUN/Creat Ratio 16.3 RATIO (10-20); Calcium,Total 8.6 mg/dL (8.5-10.1); Chloride 108 mmol/L (98-107); Creatinine, Serum 5.15 mg/dL (0.70-1.30); EST Glomerular Filtration Rate 12 mL/min (>60); Est Glom Filt Rate - Afr Amer 14 mL/min (>60); Estimated Creatinine Clearance 12.64 ml/min; Glucose 98 mg/dL (74-106); Potassium 4.1 mmol/L (3.5-5.1); Sodium Level 140 mmol/L (136-145)
[2019-03-07 06:58] LABS: Anion Gap 9 (5-15)
[2019-03-07] MEDS: Ipratropium/Albuterol Sulfate 3 ML AMPUL.NEB INHALATION ×4 (07:03→19:38)
--- NOTE | 2019-03-07 10:08 | CASEMGMT ---
Updated op report, 1st run notes, and CXR faxed to [facility] at this time. This RN CM will fax hep panel once resulted. SStaten HILDA CM
[2019-03-07 11:12] LABS: Hepatitis B Surface Antibody Non-Reactive; Hepatitis B Surface Antigen Non-Reactive (Nonreactive)
--- NOTE | 2019-03-07 12:56 | DIALYSIS ---
HD x 3 hours complete. Tolerated tx well. Ran on 3k bath. UF of 1000ml. Used right chest wall catheter. Catheter closed with heparin per fill volume. Report was given to HILDA Vizcaino.
--- NOTE | 2019-03-07 13:33 | PN_ITS ---
Patient Problems: Active and Suspected Problems (Last Updated 02/08/19 @ 16:19 by JENNY Ndiaye) Acute exacerbation of congestive heart failure (Suspected) Subjective: Breathing well. Tolerating HD today and yesterday. Vitals/I&O's: Vital Signs Temp Pulse Resp BP Pulse Ox 36.6 C 60 16 131/54 H 100 03/07/19 13:28 03/07/19 13:28 03/07/19 13:28 03/07/19 13:28 03/07/19 13:28 Oxygen Flow Rate (L/min) 1 Oxygen Delivery Method Nasal Cannula Weight: 65.1 kg Body Mass Index (BMI) 21.8 Intake and Output for Last 24 Hours 03/05/19 03/06/19 03/07/19 23:59 23:59 23:59 Intake Total 1865 / 1865 696.5 / 696.5 60 / 60 Output Total 200 / 200 1300 / 1300 250 / 250 Balance 1665 / 1665 -603.5 / -603.5 -190 / -190 General: Alert, No apparent distress HEENT: Atraumatic, Normocephalic Oral: Moist Mucosa, No Gingival or Mucosal Lesions/ Ulcerations Neck: No Nodes, Thyroid Normal Size and Texture Lungs: Clear to auscultation, Normal air movement, No rhonchi, No wheeze, No rales Cardiovascular: Regular rate, Regular Rhythm, Normal S1, Normal S2, No murmurs Abdomen: Bowel Sounds Present, Soft, Non Tender, Non-Distended, No Hepato- splenomegaly Extremities: No edema, No Calf Tenderness Psych/Mental Status: Normal Affect, Appropriate Microbiology Past 72 Hours 03/04/19 04:10 Sputum, Expectorated/Coughed Gram Stain - Final 03/04/19 04:10 Sputum, Expectorated/Coughed Respiratory Culture - Final Pseudomonas aeroginosa Laboratory Results 03/06/19 16:15: Hep Bs Antigen Non-Reactive, Hep Bs Antibody Non-Reactive 03/06/19 16:15: Hep Bs Antibody Cancelled 03/06/19 16:15: Hep B Core Total Ab Pending 03/07/19 05:45: WBC 11.3 H, RBC 2.15 L, Hgb 7.8 L, Hct 23.5 L, MCV 109.3 H, MCH 36.3 H, MCHC 33.2, RDW Std Deviation 55.3 H, RDW Coeff of Anuradha 13.8, Plt Count 219, MPV 10.8, Immature Gran % (Auto) 0.900, Neut % (Auto) 83.1 H, Lymph % (Auto) 5.7 L, [place] % (Auto) 10.2 H, Eos % (Auto) 0.0, Baso % (Auto) 0.1, Absolute Neuts (auto) 9.4 H, Absolute Lymphs (auto) 0.64 L, Nucleated RBC % 0.4 03/07/19 05:45: Sodium 140, Potassium 4.1, Chloride 108 H, Carbon Dioxide 23.0, Anion Gap 9, BUN 84 H, Creatinine 5.15 H, Estim Creat Clear Calc 12.64, Est GFR (MDRD) Af Amer 14 L, Est GFR (MDRD) Non-Af 12 L, BUN/Creatinine Ratio 16.3, Glucose 98, Calcium 8.6 Current Medications Acetaminophen (Tylenol) 650 mg PO Q6H PRN PRN PRN Reason: Pain Score 1-3/Temp > 100.7 F Albuterol Sulfate (Ventolin Aerosols) 2.5 mg INHALATION Q2H PRN PRN PRN Reason: SOB/Wheezing Last Admin: 03/04/19 04:18 Dose: 2.5 mg Documented by: Albuterol/Ipratropium (Duoneb) 3 ml INHALATION Q4HWA.RT [facility] Last Admin: 03/07/19 10:30 Dose: 3 ml Documented by: Amiodarone HCl (Cordarone) 200 mg PO DAILY [facility] Last Admin: 03/06/19 09:18 Dose: 200 mg Documented by: Amlodipine Besylate (Norvasc) 2.5 mg PO DAILY [facility] Last Admin: 03/06/19 09:18 Dose: 2.5 mg Documented by: Aspirin (Ecotrin) 81 mg PO DAILY@0800 [facility] Last Admin: 03/06/19 08:24 Dose: Not Given Documented by: Atorvastatin Calcium (Lipitor) 40 mg PO QHS [facility] Last Admin: 03/06/19 21:04 Dose: 40 mg Documented by: Carvedilol (Coreg) 12.5 mg PO BID [facility] Last Admin: 03/06/19 21:03 Dose: 12.5 mg Documented by: Guaifenesin (Mucinex) 600 mg PO BID [facility] Last Admin: 03/06/19 21:07 Dose: 600 mg Documented by: Hydralazine HCl (Apresoline Iv) 10 mg IV Q4H PRN PRN PRN Reason: SBP > 160 Ceftriaxone Sodium (Rocephin) 1 gm in 50 mls @ 100 mls/hr IV Q24 [facility] Last Infusion: 03/06/19 09:49 Dose: Infused Documented by: Sodium Chloride () 1,000 mls @ 30 mls/hr IV .[id number] [facility] Last Infusion: 03/06/19 18:41 Dose: 0 mls/hr Documented by: Isosorbide Mononitrate (Imdur) 30 mg PO DAILY [facility] Last Admin: 03/06/19 09:18 Dose: 30 mg Documented by: Multivitamins/Minerals (Multivitamin With Minerals) 1 tablet PO DAILY [facility] Last Admin: 03/06/19 08:25 Dose: Not Given Documented by: Nicotine (Nicoderm Cq (Pbkc)) 14 mg TRANSDERM. DAILY [facility] Last Admin: 03/06/19 09:18 Dose: Not Given Documented by: Nitroglycerin (Nitrostat) 0.4 mg SUBLINGUAL Q5M PRN PRN Reason: CARDIAC/CHEST PAIN Last Admin: 03/05/19 05:06 Dose: 1 tab Documented by: Ondansetron HCl (Zofran) 4 mg IV Q8H PRN PRN PRN Reason: NAUSEA/VOMITING Prednisone () 40 mg PO DAILY@0800 [facility] Last Admin: 03/06/19 08:22 Dose: 40 mg Documented by: Sodium Bicarbonate (Sodium Bicarbonate) 650 mg PO 4X/DAY [facility] Last Admin: 03/06/19 21:03 Dose: 650 mg Documented by: Sodium Chloride () 5 - 15 ml IV UD PRN PRN Reason: SALINE FLUSH Last Admin: 03/06/19 12:29 Dose: 10 ml Documented by: Thiamine HCl (Vitamin B1) 100 mg PO BID [facility] Last Admin: 03/06/19 21:03 Dose: 100 mg Documented by: STROKE Vital Signs/Narrative: Vital Signs Temp Pulse Resp BP Pulse Ox 03/07/19 13:28 36.6 C 60 16 131/54 H 100 03/07/19 12:55 35.6 C L 57 L 16 144/73 H 03/07/19 10:30 80 16 Medical Necessity - Tobacco Use Smoking Status: Light Smoker (<10/day) Tobacco Use: Cigarettes Assessment/Plan All Active Problems (Last Updated 02/08/19 @ 16:19 by JENNY Ndiaye) Acute respiratory failure with hypoxia (Acute) COPD with acute exacerbation (Acute) Cardiac enzymes elevated (Resolved) Hypertensive emergency (Acute) Acute kidney failure (Acute) Hypertensive emergency (Acute) 1. Acute hypoxic respiratory insufficiency * POA * respiratory failure ruled out * 2/2 AECOPD, pneumonia and rhinovirus * wean oxygen as tolerated * improving 2. AECOPD * improving * may have been exacerbated by rhinovirus and pneumonia * wean steroids * continue BDs 3. pseudomonal pneumonia * confirmed culture * RLL infiltrate on CXR * strep and legionella urinary antigens negative * change ABX to renally dosed levofloxacin 4. acute rhinovirus infection * supportive mgmt. 5. HFpEF * EF 65% * compensated * CXR c/w pneumonia, not CHF * furosemide d/c'd 6. ETHAN * creatinine 6.66, previously 5.4 on 01/23 * patient in agreement with [employer]. * HD catheter placed 03/06 * Had HD 7. Disposition: pending authorization of HD. Code Visit Inpatient E&M: 20764 Subs Hosp L2
[2019-03-07] MEDS: 0.9% Saline Lock 10 ML Syringe IV ×2 (13:42→17:47)
[2019-03-07] MEDS: Sodium Bicarbonate 650 MG Tablet PO ×3 (13:43→21:18)
[2019-03-07] MEDS: Amiodarone 200 MG Tablet PO (13:43)
[2019-03-07] MEDS: predniSONE 20 MG Tablet 40 MG PO (13:43)
[2019-03-07] MEDS: Multivitamins,Ther W-Minerals Tablet 1 TABLET PO (13:43)
[2019-03-07] MEDS: Thiamine Hydrochloride 100 MG Tablet PO ×2 (13:43→21:19)
[2019-03-07] MEDS: Isosorbide Mononitrate 30 MG Tablet PO (13:43)
[2019-03-07] MEDS: amLODIPine 2.5 MG Tablet PO (13:43)
[2019-03-07] MEDS: Aspirin E.C. 81 MG Tablet PO (13:43)
[2019-03-07] MEDS: Heparin 10,000 UNITS/10 ML Vial IV (13:44)
[2019-03-07] MEDS: Carvedilol 12.5 MG Tablet PO ×2 (13:44→21:18)
[2019-03-07] MEDS: guaiFENesin 600 MG Tablet PO ×2 (13:44→21:19)
--- NOTE | 2019-03-07 14:11 | PN.RENAL_ITS ---
Patient Problems: Active and Suspected Problems (Last Updated 02/08/19 @ 16:19 by JENNY Ndiaye) Acute exacerbation of congestive heart failure (Suspected) Subjective: The patient denies shortness of breath chest pain feels sleepy. He states he tolerated dialysis well yesterday and today. - Physical Exam General: Alert - Right IJ tunneled dialysis catheter, Oriented x3, Cooperative HEENT: Atraumatic, PERRLA, EOMI, Normocephalic Neck: Supple, No JVD, Negative Carotid Bruits Lungs: Clear to auscultation, Normal air movement Cardiovascular: Regular rate, No murmurs Abdomen: Bowel Sounds Present, Soft, Non Tender Extremities: No edema, Capillary Refill Less than 3 Seconds Skin: No rashes, No breakdown Musculoskeletal: No Tenderness to Palpation of Joints or Extremities Neurological: Cranial nerves II-XII grossly intact Psych/Mental Status: Normal Affect, Appropriate Vital Signs Temp Pulse Resp BP Pulse Ox 97.8 F 60 16 131/54 H 100 03/07/19 13:28 03/07/19 13:28 03/07/19 13:28 03/07/19 13:28 03/07/19 13:28 Oxygen Flow Rate (L/min) 1 Oxygen Delivery Method Nasal Cannula Weight: 65.1 kg Body Mass Index (BMI) 21.8 Intake and Output for Last 24 Hours 03/05/19 03/06/19 03/07/19 23:59 23:59 23:59 Intake Total 1865 / 1865 696.5 / 696.5 460 / 460 Output Total 200 / 200 1300 / 1300 1300 / 1300 Balance 1665 / 1665 -603.5 / -603.5 -840 / -840 Microbiology Past 72 Hours 03/04/19 04:10 Gram Stain - Final Sputum, Expectorated/Coughed Respiratory Culture - Final Pseudomonas aeroginosa Laboratory Tests Past 24 Hrs 03/06/19 03/06/19 03/06/19 16:15 16:15 16:15 WBC RBC Hgb Hct MCV MCH MCHC RDW Std Deviation RDW Coeff of Anuradha Plt Count MPV Immature Gran % (Auto) Neut % (Auto) Lymph % (Auto) [place] % (Auto) Eos % (Auto) Baso % (Auto) Absolute Neuts (auto) Absolute Lymphs (auto) Nucleated RBC % Sodium Potassium Chloride Carbon Dioxide Anion Gap BUN Creatinine Estim Creat Clear Calc Est GFR (MDRD) Af Amer Est GFR (MDRD) Non-Af BUN/Creatinine Ratio Glucose Calcium Hep Bs Antigen Non-Reactive Hep Bs Antibody Non-Reactive Cancelled Hep B Core Total Ab Pending 03/07/19 03/07/19 05:45 05:45 WBC 11.3 H RBC 2.15 L Hgb 7.8 L Hct 23.5 L MCV 109.3 H MCH 36.3 H MCHC 33.2 RDW Std Deviation 55.3 H RDW Coeff of Anuradha 13.8 Plt Count 219 MPV 10.8 Immature Gran % (Auto) 0.900 Neut % (Auto) 83.1 H Lymph % (Auto) 5.7 L [place] % (Auto) 10.2 H Eos % (Auto) 0.0 Baso % (Auto) 0.1 Absolute Neuts (auto) 9.4 H Absolute Lymphs (auto) 0.64 L Nucleated RBC % 0.4 Sodium 140 Potassium 4.1 Chloride 108 H Carbon Dioxide 23.0 Anion Gap 9 BUN 84 H Creatinine 5.15 H Estim Creat Clear Calc 12.64 Est GFR (MDRD) Af Amer 14 L Est GFR (MDRD) Non-Af 12 L BUN/Creatinine Ratio 16.3 Glucose 98 Calcium 8.6 Hep Bs Antigen Hep Bs Antibody Hep B Core Total Ab Medical Necessity - Tobacco Use Smoking Status: Light Smoker (<10/day) Tobacco Use: Cigarettes Assessment/Plan All Active Problems (Last Updated 02/08/19 @ 16:19 by JENNY Ndiaye) Acute respiratory failure with hypoxia (Acute) COPD with acute exacerbation (Acute) Cardiac enzymes elevated (Resolved) Hypertensive emergency (Acute) Acute kidney failure (Acute) Hypertensive emergency (Acute) 1.Acute kidney injury likely prerenal on chronic kidney disease stage V previous baseline 4.9-5.4 He is likely end-stage renal disease with cardiorenal syndrome. He had a recent renal ultrasound about 6 weeks ago which was reviewed. For dialysis tomorrow 4 hours. If he gets approved for her chair in the dialysis unit and he can go home tomorrow from renal standpoint 2 normal anion gap metabolic acidosis likely with renal failure continue on dialysis 3.HTN continue current medications 4. Anemia s/p 1 dose of epogen continue to monitor transfuse as needed. He has adequate iron stores CM working to place in [facility] where he resides. OK to d/c from standpoint when the patient has a chair in the dialysis unit. d/w CM and patient
--- NOTE | 2019-03-07 15:51 | EKG12_ITS ---
Test Reason : Blood Pressure : / mmHG Vent. Rate : 053 BPM Atrial Rate : 053 BPM P-R Int : 158 ms QRS Dur : 094 ms QT Int : 576 ms P-R-T Axes : 039 024 048 degrees QTc Int : 540 ms Sinus bradycardia Nonspecific ST abnormality Prolonged QT Abnormal ECG Confirmed by JOAO MITCHELL, KRISTINE ([id number]), graphics editor KASHIF GRIMM ([id number]) on 03/11/2019 10:24:28 AM Referred By: Confirmed By:KRISTINE SHEPHERD MD
[2019-03-07] MEDS: Atorvastatin Calcium 40 MG Tablet PO (21:18)
[2019-03-08] VITALS (12 sets, daily range): BP systolic 100–137; BP diastolic 41–58; PULSE 56–68; RESP 16–20; TEMP 36.8–36.9; O2SAT 95–99
[2019-03-08 06:40] LABS: Anion Gap 8 (5-15); BUN 53 mg/dL (7-18); BUN/Creat Ratio 15.6 RATIO (10-20); Chloride 104 mmol/L (98-107); Creatinine, Serum 3.39 mg/dL (0.70-1.30); EST Glomerular Filtration Rate 19 mL/min (>60); Est Glom Filt Rate - Afr Amer 23 mL/min (>60); Estimated Creatinine Clearance 19.41 ml/min; Glucose 107 mg/dL (74-106); Potassium 4.3 mmol/L (3.5-5.1); Sodium Level 138 mmol/L (136-145)
[2019-03-08] MEDS: Ipratropium/Albuterol Sulfate 3 ML AMPUL.NEB INHALATION ×3 (06:46→14:10)
[2019-03-08] MEDS: Aspirin E.C. 81 MG Tablet PO (08:45)
[2019-03-08] MEDS: Sodium Bicarbonate 650 MG Tablet PO ×2 (08:47→13:50)
[2019-03-08] MEDS: Thiamine Hydrochloride 100 MG Tablet PO (08:47)
[2019-03-08] MEDS: Isosorbide Mononitrate 30 MG Tablet PO (08:47)
[2019-03-08] MEDS: amLODIPine 2.5 MG Tablet PO (08:48)
[2019-03-08] MEDS: Carvedilol 12.5 MG Tablet PO (08:48)
[2019-03-08] MEDS: Multivitamins,Ther W-Minerals Tablet 1 TABLET PO (08:48)
[2019-03-08] MEDS: guaiFENesin 600 MG Tablet PO (08:49)
--- NOTE | 2019-03-08 09:47 | CASEMGMT ---
Call to [facility] and per rep, pt's financials have cleared and they do not need any further documentation at this time. She is aware that pt getting dialysis at this time and that plan is to be discharged today after dialysis and then have a start date of 03/11/19, voices understanding. She states she will place call to Roland Donahue to clarify chair time and then call this RN CM back with time. Pt updated on all at this time, voices understanding. SStaten RN CM
--- NOTE | 2019-03-08 11:40 | CASEMGMT ---
This RN FEDE placed call to [facility] and they states that they have pt set for a chair time of 1415 starting 03/11/19 at this time. They ask that pt arrive about 1400 for the first visit. Pt updated on all at this time, voices understanding. Asim STEVENS CM updated on possible home oxygen for pt at this time. Hedy STEVENS to be checking pt's oxygen at this time. Dialysis appt placed in pt f/u appt's at this time. Briseida STVEENS CM
[2019-03-08] MEDS: predniSONE 20 MG Tablet 40 MG PO (11:41)
[2019-03-08] MEDS: Amiodarone 200 MG Tablet PO (11:41)
--- NOTE | 2019-03-08 12:26 | PN.RENAL_ITS ---
Patient Problems: Active and Suspected Problems (Last Updated 02/08/19 @ 16:19 by JENNY Ndiaye) Acute exacerbation of congestive heart failure (Suspected) Subjective: sob much better almost resolved he denies chest pain he has no other complaints the patient was seen during dialysis and is tolerating well dialysis. - Physical Exam General: Alert - Right IJ TDC no signs of inflammation no discharge, Oriented x3, Cooperative HEENT: Atraumatic, PERRLA, EOMI, Normocephalic Neck: Supple, No JVD, Negative Carotid Bruits Lungs: Clear to auscultation, Normal air movement Cardiovascular: Regular rate, No murmurs Abdomen: Bowel Sounds Present, Soft, Non Tender Extremities: No edema, Capillary Refill Less than 3 Seconds Skin: No rashes, No breakdown Musculoskeletal: No Tenderness to Palpation of Joints or Extremities Neurological: Cranial nerves II-XII grossly intact Psych/Mental Status: Normal Affect, Appropriate Vital Signs Temp Pulse Resp BP Pulse Ox 98.5 F 62 16 137/58 H 99 03/08/19 09:15 03/08/19 11:04 03/08/19 11:04 03/08/19 09:15 03/08/19 09:15 Oxygen Flow Rate (L/min) 2 Oxygen Delivery Method Nasal Cannula Weight: 65.8 kg Body Mass Index (BMI) 21.8 Intake and Output for Last 24 Hours 03/06/19 03/07/19 03/08/19 23:59 23:59 23:59 Intake Total 696.5 / 696.5 920 / 920 240 / 240 Output Total 1300 / 1300 1300 / 1300 Balance -603.5 / -603.5 -380 / -380 240 / 240 Microbiology Past 72 Hours 03/04/19 04:10 Gram Stain - Final Sputum, Expectorated/Coughed Respiratory Culture - Final Pseudomonas aeroginosa Laboratory Tests Past 24 Hrs 03/08/19 05:18 Sodium 138 Potassium 4.3 Chloride 104 Carbon Dioxide 26.0 Anion Gap 8 BUN 53 H Creatinine 3.39 H Estim Creat Clear Calc 19.41 Est GFR (MDRD) Af Amer 23 L Est GFR (MDRD) Non-Af 19 L BUN/Creatinine Ratio 15.6 Glucose 107 H Calcium 8.0 L Medical Necessity - Tobacco Use Smoking Status: Light Smoker (<10/day) Tobacco Use: Cigarettes Assessment/Plan All Active Problems (Last Updated 02/08/19 @ 16:19 by JENNY Ndiaye) Acute respiratory failure with hypoxia (Acute) COPD with acute exacerbation (Acute) Cardiac enzymes elevated (Resolved) Hypertensive emergency (Acute) Acute kidney failure (Acute) Hypertensive emergency (Acute) 1.Acute kidney injury likely prerenal on chronic kidney disease stage V previous baseline 4.9-5.4 He is likely end-stage renal disease with cardiorenal syndrome. He had a recent renal ultrasound about 6 weeks ago which was reviewed. He was seen during dialysis and he is tolerating well. 2 normal anion gap metabolic acidosis likely with renal failure continue on dialysis 3.HTN continue current medications 4. Anemia s/p 1 dose of epogen continue to monitor transfuse as needed. He has adequate iron stores CM working to place in [facility] where he resides. OK to d/c from standpoint when the patient has a chair in the dialysis unit. d/w CM and patient dialysis nurse
--- NOTE | 2019-03-08 15:04 | DCINST_ITS ---
You will use the following diet at home:: Cardiac Your food should be the consistency of: Regular Call your doctor if your incision/area has: Continuous Slow Oozing, Increased Pain/ Swelling, Increased Redness Call your doctor if you observe: Fever of 101 or Higher, Shortness of breath Allergies/Adverse Reactions: Allergies Sulfa (Sulfonamide Antibiotics) Adverse Reaction (Verified 03/05/19 23:14) Rash Medications to take at Discharge Amiodarone HCl 200 mg PO DAILY 03/03/19 Amlodipine Besylate 2.5 mg PO DAILY 03/03/19 Aspirin E.C. [Ecotrin] 81 mg PO DAILY@0800 03/03/19 Atorvastatin Calcium 40 mg PO QHS 03/03/19 Carvedilol 12.5 mg PO BID 03/03/19 Isosorbide Mononitrate [Isosorbide Mononitrate ER] 30 mg PO DAILY 03/03/19 Multivitamins,Ther W-Minerals [Multivitamin With Minerals] 1 tab PO DAILY 03/03/19 Nicotine [Nicoderm] 14 mg TRANSDERM. DAILY 03/03/19 Thiamine Hydrochloride [Vitamin B1] 100 mg PO BID 03/03/19 Guaifenesin [Mucinex] 600 mg PO BID #10 tab 03/08/19 levoFLOXacin tablet [Levaquin tablet] 500 mg PO DAILY #1 tab 03/08/19 predniSONE tablet 2 tab PO DAILY@0800 #4 tab 03/08/19 The following prescriptions were given: levoFLOXacin tablet [Levaquin tablet] 500 mg PO DAILY #1 tab Transmission Status: Pending to [place], [place] Guaifenesin [Mucinex] 600 mg PO BID #10 tab Transmission Status: Pending to [place], [place] predniSONE tablet 2 tab PO DAILY@0800 #4 tab Transmission Status: Pending to [place], [place] Primary Care Physician: Heath Brown MD [Primary Care Provider] - Within 2 Weeks Test Results: Test results from this visit will be discussed in further detail at your follow- up appointment, if applicable. Please Follow Up With: [facility] When: 03/11/19 Proposed Discharge Date: 03/08/19
--- NOTE | 2019-03-08 15:06 | DS.PCM_ITS ---
Discharge Date and Diagnosis Date of Admission: 03/03/19 Date of Discharge: 03/08/19 - Primary Discharge Diagnosis 1. Acute hypoxic respiratory insufficiency 2. AECOPD 3. pseudomonal pneumonia 4. acute rhinovirus infection 5. HFpEF 6. ETHAN - Secondary Discharge Diagnosis Chronic Problems (Last Updated 02/08/19 @ 16:19 by JENNY Ndiaye) Atrial fibrillation (Chronic) Kidney disease (Chronic) Tobacco use (Chronic) Hypertension (Chronic) Hyperlipidemia (Chronic) Alcohol abuse (Chronic) PAD (peripheral artery disease) (Chronic) Hospital Course and Treatment Imaging Results: Clinical Impression(s) from Imaging Studies Chest X-Ray 03/04/19 05:30 IMPRESSION: New right middle lobe infiltrate with increased markings in the right lower lobe. Small right pleural effusion. Electronically Signed: Davis Najera, at 9:21 EDT , Service support , Chest X-Ray 03/06/19 05:00 IMPRESSION: Right middle lobe and right lower lobe pneumonia is stable since the previous study. Small right pleural effusion. Electronically Signed: Deborah Ely, at 5:58 EDT Tel , Service support , Chest X-Ray 03/06/19 15:03 IMPRESSION: The tip of the right hemodialysis catheter is in the midportion of the superior vena cava. Improved aeration of the right basilar infiltrate. Electronically Signed: Davis Najera, at 15:27 EDT , Service support , [facility] Operations: None Procedures: Dialysis, - - Ultrasound and fluoroscopy guided right IJ temporary tunneled dialysis catheter placement Summary of Care Provided: The patient is a 68 year old M presents with shortness of breath and cough. Patient was found to have a pneumonia which subsequently was found to be Pseudomonas. Patient started on Rocephin change of his cefepime and patient received 1 more dose of Levaquin which be renally dosed to complete a 7-day cou rse total of antibiotics. Did well from that standpoint also comp gated by acute rhinovirus infection. Patient scores a comp gated by worsening of his chronic kidney disease where his initial creatinine was 7. So nephrology was consulted and dialysis recommended. Patient had a dialysis catheter placed and initiated on dialysis for the past 3 days. Patient has a dialysis center set up in [place] and patient will be discharged there in stable condition. Ultrasound and fluoroscopy guided right IJ temporary tunneled dialysis catheter placement[] - Physical Exam General: Alert, No apparent distress HEENT: Atraumatic, Normocephalic Oral: Moist Mucosa, No Gingival or Mucosal Lesions/ Ulcerations Neck: No Nodes, Thyroid Normal Size and Texture Lungs: Normal air movement, - - coarse breath sounds bilaterally. Cardiovascular: Regular rate, Regular Rhythm, Normal S1, Normal S2 Abdomen: Bowel Sounds Present, Soft, Non Tender, Non-Distended, No Hepato-splenomegaly Skin: - - RIJ tunnelled HD catheter in place. Psych/Mental Status: Normal Affect, Appropriate Vital Signs Temp Pulse Resp BP Pulse Ox 36.9 C 65 16 137/58 H 99 03/08/19 09:15 03/08/19 14:10 03/08/19 14:10 03/08/19 09:15 03/08/19 09:15 Oxygen Flow Rate (L/min) 2 Oxygen Delivery Method Nasal Cannula Weight: 65.8 kg Body Mass Index (BMI) 21.8 Intake and Output for Last 24 Hours 03/06/19 03/07/19 03/08/19 23:59 23:59 23:59 Intake Total 696.5 / 696.5 920 / 920 240 / 240 Output Total 1300 / 1300 1300 / 1300 Balance -603.5 / -603.5 -380 / -380 240 / 240 Microbiology Past 72 Hours 03/04/19 04:10 Gram Stain - Final Sputum, Expectorated/Coughed Respiratory Culture - Final Pseudomonas aeroginosa Laboratory Tests Past 24 Hrs 03/08/19 05:18 Sodium 138 Potassium 4.3 Chloride 104 Carbon Dioxide 26.0 Anion Gap 8 BUN 53 H Creatinine 3.39 H Estim Creat Clear Calc 19.41 Est GFR (MDRD) Af Amer 23 L Est GFR (MDRD) Non-Af 19 L BUN/Creatinine Ratio 15.6 Glucose 107 H Calcium 8.0 L Discharge Diet: 6 Cup Fluid Restriction, 2000 mg Sodium Diet Discharge Activity: Return to Normal Activity Call your doctor if your incision/area has: Continuous Slow Oozing, Increased Pain/ Swelling, Increased Redness Call your doctor if you observe: Fever of 101 or Higher, Shortness of breath Home Medications: Medications to take at Discharge Amiodarone HCl 200 mg PO DAILY 03/03/19 Amlodipine Besylate 2.5 mg PO DAILY 03/03/19 Aspirin E.C. [Ecotrin] 81 mg PO DAILY@0800 03/03/19 Atorvastatin Calcium 40 mg PO QHS 03/03/19 Carvedilol 12.5 mg PO BID 03/03/19 Isosorbide Mononitrate [Isosorbide Mononitrate ER] 30 mg PO DAILY 03/03/19 Multivitamins,Ther W-Minerals [Multivitamin With Minerals] 1 tab PO DAILY 03/03/19 Nicotine [Nicoderm] 14 mg TRANSDERM. DAILY 03/03/19 Thiamine Hydrochloride [Vitamin B1] 100 mg PO BID 03/03/19 Guaifenesin [Mucinex] 600 mg PO BID #10 tab 03/08/19 levoFLOXacin tablet [Levaquin tablet] 500 mg PO DAILY #1 tab 03/08/19 predniSONE tablet 2 tab PO DAILY@0800 #4 tab 03/08/19 Following Prescrptions Were Given to Patient: levoFLOXacin tablet [Levaquin tablet] 500 mg PO DAILY #1 tab Transmission Status: Pending to [place], [place] Guaifenesin [Mucinex] 600 mg PO BID #10 tab Transmission Status: Pending to [place], [place] predniSONE tablet 2 tab PO DAILY@0800 #4 tab Transmission Status: Pending to [place], [place] Primary Care Physician: Heath Brown MD [Primary Care Provider] - Within 2 Weeks Please Follow Up With: Dialysis center [place] When: 03/11/19 Disposition: Home Minutes spent on discharge:: 35 Patient Condition:: Good Medical Necessity - Tobacco Use Smoking Status: Light Smoker (<10/day) Tobacco Use: Cigarettes Meaningful Use Info Meaningful Use Diagnoses (Choose all that apply): None applicable Code Visit Inpatient E&M: 63728 Disch Hosp
[2019-03-08 16:13] LABS: Hepatitis B Core Ab Total Negative (Negative)
--- NOTE | 2019-03-11 14:33 | CASEMGMT ---
[facility] PHONE CALL DC DATE: 03/08/19 DC Disposition: Home Diagnosis on Discharge: New dialysis set up LACE/STRATA: 01/22 Per note-pt's chair time is 1415 today. Pt will be @ [facility]. No call made. Keon CHURCHILLN RN ACM
== END 2019-03-08 16:28 | disposition home or self-care (01) | DRG 177 ==
PROVIDERS: Anesthesiology; Internal Medicine; Nurse Practitioner Family; Surgery; Admitting Provider Family Medicine; Family Provider Family Medicine; PCP Family Medicine
PROC: 0JH63XZ Insertion of Tunneled Vascular Access Device into Chest Subcutaneous Tissue and Fascia, Percutaneous Approach (ICD-10-PCS; principal; 2019-03-06 13:50)
DX: J15.1 Pneumonia due to Pseudomonas (principal); N18.6 End stage renal disease; I13.2 Hypertensive heart and chronic kidney disease with heart failure and with stage 5 chronic kidney disease, or end stage renal disease; J44.1 Chronic obstructive pulmonary disease with (acute) exacerbation; J44.0 Chronic obstructive pulmonary disease with (acute) lower respiratory infection; N17.9 Acute kidney failure, unspecified; I50.32 Chronic diastolic (congestive) heart failure; E87.2 Acidosis; I48.0 Paroxysmal atrial fibrillation; E78.5 Hyperlipidemia, unspecified; B97.89 Other viral agents as the cause of diseases classified elsewhere; F10.11 Alcohol abuse, in remission; F17.210 Nicotine dependence, cigarettes, uncomplicated; I73.9 Peripheral vascular disease, unspecified; R06.89 Other abnormalities of breathing; R09.02 Hypoxemia
CPT/HCPCS: 36415; 71045; 71046; 76000; 80048; 80076; 82728; 83036; 83540; 83550; 83735; 84100; 84443; 85025; 85027; 85610; 85730; 86704; 86706; 87070; 87077; 87184; 87186; 87205; 87340; 87449; 87633; 90937; 93005; 94640; 97802; J7030; A4216; C1750; G0257; J1940; J3490; Q5106

== ENCOUNTER → 2019-04-09 12:55 | Outpatient (CLI) | payer MEDICARE, OTHER, SELFPAY ==
[2019-03-26 13:53] VITALS: BMI 20.8
--- NOTE | 2019-04-09 13:02 | ART_ITS ---
Reason For Study: Claudication Procedure A bilateral lower extremity continuous wave Doppler with analog waveform analysis,segmental pressures,and ankle brachial indexes without exercise. Left Segmental Pressures Left brachial= 105mmHg. Left thigh = 59mmHg. Left calf = 44mmHg. Left posterior tibial artery = 48mmHg. Left dorsalis pedis artery = 51mmHg. The left dorsalis pedis waveforms are monophasic. The left posterior tibial artery waveforms are monophasic. Right Segmental Pressures Right brachial= 114mmHg. Right thigh = 57mmHg. Right calf = 39mmHg. Right posterior tibial artery = 30mmHg. Right dorsalis pedis artery = 43mmHg. The right dorsalis pedis waveforms are monophasic. The right posterior tibial artery waveforms are monophasic. Indices The right ankle brachial index by the dorsalis pedis is 0.38. The right ankle brachial index by the posterior tibial artery is 0.26. The left ankle brachial index by the dorsalis pedis is 0.45. The left ankle brachial index by the posterior tibial artery is 0.42. Interpretation Summary 1. Bilateral severe occlussive disease with chuyita 0.38/0.45. suggestive of aortoiliac or iliofemoral disease. Ordering Physician: Beatrice Alamo Referring Physician: Heath Brown Performed By: Maxine Garcia RVT
--- NOTE | 2019-04-09 13:02 | VDUE_ITS ---
Reason For Study: ESRD Right Arm Left Arm Right Cephalic Vein at the wrist measures Left Cephalic Vein at the wrist measures 0.25 0.23 x 0.26 cm. x 0.29 cm. Right Cephalic Vein in the forearm measures Left Cephalic Vein in the forearm measures 0.22 x 0.26 cm. 0.28 x 0.28 cm. Right Cephalic Vein below antecub measures Left Cephalic Vein below antecub measures 0.24 x 0.24 cm. 0.30 x 0.30 cm. Right Cephalic Vein above antecub measures Left Cephalic Vein above antecub measures 0.24 x 0.25 cm. 0.39 x 0.40 cm. Right Cephalic Vein mid bicep measures 0.22 Left Cephalic Vein at mid bicep measures 0.34 x 0.22 cm. x 0.33 cm. Right Cephalic Vein at the shoulder measures Left Cephalic Vein at the shoulder measures 0.29 x 0.30 cm. 0.47 x 0.48 cm. Right Basilic Vein at the origin measures Basilic vein at origin measures 0.36 x 0.37 0.35 x 0.36 cm. cm. Right Basilic Vein mid bicep measures 0.38 x Basilic vein at bicep measures 0.30 x 0.30 0.40 cm. cm. Right Basilic Vein above antecub measures Basilic vein above antecub measures 0.32 x 0.41 x 0.40 cm. 0.31 cm. Right brachial artery measures 0.45 x 0.46 Duplicate brachial artery noted. cm with a velocity of 88.2 cm/sec. Left brachial artery 1 measures 0.30 x 0.33 Right radial artery measures 0.20 x 0.21 cm cm with a velocity of 71.2 cm/sec. with a velocity of 84.2 cm/sec. Left brachial artery 2 measures 0.32 x 0.33 cm with a velocity of 68.8 cm/sec. Left radial artery measures 0.20 x 0.21 cm with a velocity of 69.9 cm/sec. Interpretation Summary 1. Bilaterl cephalic and basilic veins of good caliber. Ordering Physician: Kristin Richards Referring Physician: Heath Brown Performed By: Maxine Garcia RVT ?
== END ==
PROVIDERS: Family Provider Family Medicine; PCP Family Medicine; Referring Provider Student in an Organized Health Care Education/Training Program; Visit Provider Student in an Organized Health Care Education/Training Program
DX: Z01.818 Encounter for other preprocedural examination (principal); N18.6 End stage renal disease; I73.9 Peripheral vascular disease, unspecified
CPT/HCPCS: 93923; 93970; 93971; G0365

== ENCOUNTER 2019-05-30 09:51 | Day surgery (SDC) | payer MEDICARE, OTHER, SELFPAY ==
--- NOTE | 2019-05-07 02:26 | HP_ITS ---
Intake Vital Signs 05/07/19 Height 5 ft 7 in 05/07/19 Weight: 138 lb 4 oz 05/07/19 BMI 21.6 05/07/19 BP 110/65 05/07/19 Blood Pressure Location Rt radial 05/07/19 Position Sitting 05/07/19 Respiration 20 H 05/07/19 Pulse 59 L 05/07/19 Pulse Oximetry (%) 99 Intake Visit Reasons: NEEDS FISTULA/HAD VEIN MAPPING @ [facility] Chief Complaint: fistula creation Fur Dresser Required: No Is patient in pain?: No Allergies Sulfa (Sulfonamide Antibiotics) Adverse Reaction (Verified 03/26/19 13:54) Rash Medications Amiodarone HCl 200 mg PO DAILY 03/03/19 [History Confirmed 05/07/19] Amlodipine Besylate 2.5 mg PO DAILY 03/03/19 [History Confirmed 05/07/19] Aspirin E.C. [Ecotrin] 81 mg PO DAILY@0800 03/03/19 [History Confirmed 05/07/19] Atorvastatin Calcium 40 mg PO QHS 03/03/19 [History Confirmed 05/07/19] Nicotine [Nicoderm] 14 mg TRANSDERM. DAILY 03/03/19 [History Confirmed 05/07/19] Thiamine Hydrochloride [Vitamin B1] 100 mg PO BID 03/03/19 [History Confirmed 05/07/19] carvedilol 6.25 mg tablet 6.25 mg PO BID #60 tab 03/26/19 [Rx Confirmed 05/07/19] [facility] Medical History (Updated 05/07/19 @ 14:23 by Kalen Canales MD) Chronic renal failure, stage 5 (Chronic) Atrial fibrillation (Chronic) COPD with acute exacerbation (Acute) Kidney disease (Chronic) Cardiac enzymes elevated (Resolved) Hypertensive emergency (Acute) Hypertension (Chronic) Hyperlipidemia (Chronic) Alcohol abuse (Chronic) PAD (peripheral artery disease) (Chronic) GERD (gastroesophageal reflux disease) (Acute) Superficial thrombophlebitis (Acute) Surgical History (Updated 05/07/19 @ 14:05 by Katty Talley) History of appendectomy (Acute) History of cataract extraction (Acute) History of retinal detachment (Acute) Family History (Updated 05/07/19 @ 14:06 by Katty Talley) Father Hypertension Mother Hypertension Sister Hypertension Brother Hypertension Social History (Updated 05/07/19 @ 14:26 by Kalen Canales MD) Smoking Status: Light Smoker (<10/day) HPI HPI HPI: ESTHER BONILLA, is a 69 M who presents to the office today for HPI HPI Surgical H&P: Yes HPI: ESTHER BONILLA, is a 69 M who presents to the office today for surgical consultation regarding creation of arteriovenous hemodialysis fistula. The patient is referred by Dr. Richards and a written copy of my surgical consult recommendations will return to him. The patient by report was emergently hospitalized in [place] with shortness of breath and was found to have acute on top of chronic renal failure. He is right internal jugular tunneled dialysis catheters. He had vein mapping performed as below. And his side notable that noninvasive lower extremity studies performed April 09 demonstrating the right JANY of 0.38 and left JANY of 0.45 suggestive of aortoiliac or iliofemoral disease bilaterally. The patient is right arm dominant [facility] [address] [place] [address]. [place] [address] Saphenous Vein Mapping, Bilat 04/09/19 1318 MR#: [id number] Name:ESTHER BONILLA HRep #:[id number] : 1950 68From:Alfie Lora MD Attending Dr: JEFFERY Hartleytatus: REG CLI Ordering Dr: Kristin Richards MDDate: 04/09/19 [facility]: Reason For Study: ESRD Right Arm Left Arm Right Cephalic Vein at the wrist measures Left Cephalic Vein at the wrist measures 0.25 0.23 x 0.26 cm. x 0.29 cm. Right Cephalic Vein in the forearm measures Left Cephalic Vein in the forearm measures 0.22 x 0.26 cm. 0.28 x 0.28 cm. Right Cephalic Vein below antecub measures Left Cephalic Vein below antecub measures 0.24 x 0.24 cm. 0.30 x 0.30 cm. Right Cephalic Vein above antecub measures Left Cephalic Vein above antecub measures 0.24 x 0.25 cm. 0.39 x 0.40 cm. Right Cephalic Vein mid bicep measures 0.22 Left Cephalic Vein at mid bicep measures 0.34 x 0.22 cm. x 0.33 cm. Right Cephalic Vein at the shoulder measures Left Cephalic Vein at the shoulder measures 0.29 x 0.30 cm. 0.47 x 0.48 cm. Right Basilic Vein at the origin measures Basilic vein at origin measures 0.36 x 0.37 0.35 x 0.36 cm. cm. Right Basilic Vein mid bicep measures 0.38 x Basilic vein at bicep measures 0.30 x 0.30 0.40 cm. cm. Right Basilic Vein above antecub measures Basilic vein above antecub measures 0.32 x 0.41 x 0.40 cm. 0.31 cm. Right brachial artery measures 0.45 x 0.46 Duplicate brachial artery noted. cm with a velocity of 88.2 cm/sec. Left brachial artery 1 measures 0.30 x 0.33 Right radial artery measures 0.20 x 0.21 cm cm with a velocity of 71.2 cm/sec. with a velocity of 84.2 cm/sec. Left brachial artery 2 measures 0.32 x 0.33 cm with a velocity of 68.8 cm/sec. Left radial artery measures 0.20 x 0.21 cm with a velocity of 69.9 cm/sec. Interpretation Summary 1. Bilaterl cephalic and basilic veins of good caliber. Ordering Physician: Kristin Richards Referring Physician: Heath Brown Performed By: Maxine Garcia RVT ? 04/17/19 1126 Date Alfie Lora MD ROS General General: Yes fatigue; no weight change, appetite, colon cancer, breast cancer or weakness HEENT HEENT: Yes eye surgery; no difficulty swallowing, eye injury, swollen glands or hoarseness Endo Endocrine: No thyroid disease, diabetes mellitus, thyroid cancer, Hair loss, heat intolerance or cold intolerance Cardio Cardiovascular: Yes atrial fibrillation and high blood pressure; no murmur, pacemaker, heart disease, heart attack, heart stent, palpitations, shortness of breat with exertion or chest pain Resp Respiratory: Yes shortness of breath, No sleep apnea, Yes cough, Yes COPD, No asthma, No emphysema, No wheezing Gastro Gastrointestinal: No abdominal pain, No nausea or vomiting, No diarrhea, No constipation, No blood in stool, Yes acid reflux, Yes hemorrhoids, No ulcers, No gallbladder problem, No black,tarry stools Rodolfo Hematologic: Yes blood thinners, No blood disorders, No bleeding, No anemia, No blood clots Neuro Neurologic: No weakness Exam Const General: cooperative, no acute distress Nutritional Appearance: underweight Orientation: alert, awake Other: Patient has a heavy odor of tobacco. He appears to be far older than stated age. [facility] Head: normal to inspection Chest Other: Notably increased anterior posterior diameter Resp Effort & Inspection: other (Poor respiratory excursion) Auscultation: clear to auscultation bilaterally Cardio Rate: regular rate Rhythm: regular rhythm Heart Sounds: no murmurs Other: Neither femoral pulses palpable, mild tenderness left groin GI Palpation: soft, no hepatosplenomegaly Other: Well-healed infraumbilical right toya-rectus incision Skin Other: Thin skin bilateral hands with multiple areas of ecchymosis left dorsal hand and upper arm Neuro Other: Patient appears to be aware of his situation in place Extrem General: no calf tenderness bilaterally Psych Affect: normal affect Assessment & Plan Problems 1. Chronic renal failure, stage 5 N18.5 Plan 69-year-old gentleman referred for hemodialysis access with stage V renal failure and indwelling right IJ tunneled dialysis catheters. Is right arm dominant. He has ongoing tobacco abuse. Multiple medical issues as noted above. This would likely include aortoiliac occlusion. I proposed for him a left forearm radial cephalic arteriovenous hemodialysis fistula creation. We have discussed the technique, benefit, risk of alternatives. I have personally inspected that arm with ultrasound. The left forearm cephalic vein is patent and compressible but it is borderline in dimension. He has an adequate 3+ left radial artery. I anticipate mapping the vein at the time of surgery and having to move back more proximal in the forearm to get to a slightly larger vein. Absolutely no guarantees of success are being offered. He has had an opportunity to ask and have questions answered. This component of his illness appears to be most pressing and we will schedule proceed with attempts at creating a more long-term dialysis access. Cc: Dr. Richards and Dr. Kevin Canales M.D., F.A.C.S. Coding Level of Care Code 64859 Diagnoses Chronic renal failure, stage 5 N18.5 05/07/19 1426 <Electronically signed by Kalen griffin MD> Date _ Kalen Canales MD I have re-examined the patient. There are no clinical changes since date of exam.
[2019-05-07 13:16] VITALS: BMI 21.6
[2019-05-30] VITALS (7 sets, daily range): BP systolic 104–137; BP diastolic 53–72; PULSE 53–55; RESP 16–18; TEMP 36.2–36.8; O2SAT 98–100; BMI 20.9
--- NOTE | 2019-05-30 10:06 | EKG12_ITS ---
Test Reason : PRE-OP Blood Pressure : / mmHG Vent. Rate : 053 BPM Atrial Rate : 053 BPM P-R Int : 190 ms QRS Dur : 094 ms QT Int : 558 ms P-R-T Axes : 000 017 081 degrees QTc Int : 523 ms Sinus bradycardia Prolonged QT Abnormal ECG When compared with ECG of 07-MAR-2019 16:00, No significant change was found Confirmed by ANITRA MITCHELL, KASI ([id number]), videotape editor BAY CLEMENTE ([id number]) on 05/31/2019 1:30:55 PM Referred By: Kalen Canales Confirmed By:JESICA AYOUB MD
[2019-05-30 10:26] LABS: Hematocrit 38.3 % (40-54); Mean Corp Hgb Conc 31.3 g/dL (32-36); Mean Corpuscular Hgb 32.1 pg (27.0-32.0); Mean Corpuscular Volume 102.4 fL (80-94); Mean Platelet Vol. 9.3 fl (6.2-12.0); Platelet Count 238 K/mm3 (150-450); RBC Distribution Width CV 17.7 % (11.6-14.6); RBC Distribution Width SD 64.7 fl (35.1-43.9); Red Blood Count 3.74 M/mm3 (4.6-6.2); White Blood Count 10.5 K/mm3 (4.4-11.0)
[2019-05-30] MEDS: 0.45% Normal Saline 1,000 ML 15 ML IV (10:27)
[2019-05-30 10:45] LABS: Anion Gap 5 (5-15); BUN 27 mg/dL (7-18); BUN/Creat Ratio 5.6 RATIO (10-20); Chloride 100 mmol/L (98-107); Creatinine, Serum 4.84 mg/dL (0.70-1.30); EST Glomerular Filtration Rate 13 mL/min (>60); Est Glom Filt Rate - Afr Amer 15 mL/min (>60); Estimated Creatinine Clearance 12.33 ml/min; Glucose 107 mg/dL (74-106); Potassium 4.2 mmol/L (3.5-5.1); Sodium Level 137 mmol/L (136-145)
--- NOTE | 2019-05-30 11:40 | DCINST_ITS ---
Discharge Diet: Renal Diet Discharge Activity: May Not Drive - for 2-3 days or while taking narcotic pain medications., May Shower, May Take a Tub Bath - in 5 days. Lifting Restrictions: 5 pounds Keep extremity elevated above heart level: - - Keep arm elevated above the heart level for 3 days. Additional Activity Instructions:: Exercise hand vigorously with a stress ball. Call your doctor if your incision/area has: Continuous Slow Oozing, Sudden Increased Bleeding - apply pressure and call your doctor., Increased Pain/ Swelling, Increased Redness, Foul Smelling Discharge Call your doctor if you observe: Fever of 101 or Higher Suture Line Care: Avoid Pulling/Pushing, Avoid Pinching/Bending Cleanse incision/area with: Keep Dressing Clean & Dry Additional Dressing/Incision Instructions:: Change or remove dressing in 3 days. May protect with a gauze bandaid. Proximal forearm skin lesion site can be treated with antibiotic ointment and a Band-Aid daily Allergies/Adverse Reactions: Allergies Sulfa (Sulfonamide Antibiotics) Adverse Reaction (Verified 05/30/19 10:12) Rash Medications to take at Discharge Amiodarone HCl 200 mg PO DAILY 03/03/19 Amlodipine Besylate 2.5 mg PO DAILY 03/03/19 Aspirin E.C. [Ecotrin] 81 mg PO DAILY@0800 03/03/19 Atorvastatin Calcium 40 mg PO QHS 03/03/19 Thiamine Hydrochloride [Vitamin B1] 100 mg PO BID 03/03/19 carvedilol 6.25 mg tablet 6.25 mg PO BID #60 tab 03/26/19 Hydrocodone Bitart/Apap 5-325 [Tim[place]lake 5MG-325MG] 1 tab PO Q6H PRN PRN 2 Days #5 tab 05/30/19 The following prescriptions were given: Hydrocodone Bitart/Apap 5-325 [Tim[place]lake 5MG-325MG] 1 tab PO Q6H PRN PRN 2 Days #5 tab PRN Reason: Pain Transmission [facility] [place], [place] Primary Care Physician: Heath Brown MD [Primary Care Provider] - Test Results: Test results from this visit will be discussed in further detail at your follow- up appointment, if applicable. Please Follow Up With: Kalen Canales MD - [phone] When: Call to make an appointment for suture removal and follow up in 1 week.
--- NOTE | 2019-05-30 12:00 | LES_PTH ---
PATIENT: ESTHER BONILLA LOC: [facility] U#:[id number] AGE/SX: 69/M ROOM: RE05/30/[address]: Dr. Kalen Canales MD : 1950 BED: DIS: 05/30/2019 SPEC #: [id number] RECD: 05/30/19 13:57 STATUS: RON SERGIO #: [id number] SELINA: 05/30/19 12:[address]: Kalen Canales DEPT: SURGICAL PATHOLOGY RECD BY: Alphonso Correia ENTERED: 05/31/19 12:01 SP TYPE: Lesion OTHR DR: Dr. Heath Brown MD Tissues: Skin of forearm, NOS Procedures: Surgery Specimen Level IV HEADER OPERATION: Forearm radial to cephalic AV fistula creation PRE-OP DIAGNOSIS: Chronic renal failure stage 5, N18.5 TISSUE SUBMITTED: Skin lesion, proximal left forearm MICROSCOPIC DIAGNOSIS Skin lesion, proximal left forearm, biopsy: Fragments of squamous cell carcinoma. Hyperkeratosis and parakeratosis. AM:esther 06/03/19 COMMENT The biopsy is superficial. An invasive carcinoma cannot be excluded. Complete excision of lesion is recommended for definite classification. Case has been reviewed in consultation with Dr. Landry who concurs with the above diagnosis. IDC:SJ MICROSCOPIC DESCRIPTION Slides are reviewed. GROSS DESCRIPTION Received in fixative is one container labeled with the patient's name and designated skin lesion, proximal left forearm. The specimen consists of an irregular fragment of sepulveda, excised skin measuring 0.7 x 0.5 x 0.3 cm. The specimen is inked, bisected and totally submitted in one cassette. / AM:esther 05/31/19 TC:0 CPT: 12633
[2019-05-30] MEDS: Bupivacaine Mpf 0.5% 30 ML VIAL (12:05)
[2019-05-30] MEDS: Heparin Injection (Vial) 5,000 UNIT/ML VIAL 5000 UNIT (12:30)
--- NOTE | 2019-05-30 13:09 | OP.PCM_ITS ---
Problem List (1) Chronic renal failure, stage 5 Status: Chronic (2) Skin lesion Status: Acute Report of Operation Date of Procedure: 05/30/19 Pre-Operative Diagnosis: Stage V chronic renal failure in need of long-term arteriovenous hemodialysis access. Acute onset of partially avulsed exophytic skin lesion left proximal dorsal forearm Post-Operative Diagnosis: Same Surgery/Procedure Performed:: Left radial to cephalic arteriovenous hemodialysis fistula creation. Completion amputation with cautery ablation left proximal dorsal forearm keratotic skin lesion Description of Surgical Findings:: Timeout and informed consent was obtained. The patient was taken back to the operating room. He complained that he had just partially evulsed a keratotic skin lesion in the proximal left dorsal forearm. He requested treatment. The left upper extremity was sterilely prepped and draped. He underwent monitored anesthesia care local anesthetic. 1% lidocaine mixed 50-50 with 0.5% Marcaine was used as a local anesthetic. A total of 9 cc was used. Ultrasound was used to map the cephalic vein at the wrist and the radial artery. Local was inst illed. An oblique incision was created. Sharp and blunt dissection was used to dissect free the cephalic vein. Identified it at a branch point. Then sharp and blunt dissection was used to identify the radial artery and circumferential control was obtained. The vein was ligated distally with hemoclips and then at the branch point it was spatulated to allow for a larger anastomosis. The patient received 5000 units of heparin peripheral vascular clamps were placed on the radial artery and 11 blade used to make an arteriotomy which is stented with Villa scissors. An end-to-side anastomosis was created with running 7-0 Prolene. Good hemostasis was achieved. There was excellent flow in the fistula immediately. There was good positional lie. The wound was closed the deep layer of interrupted 4-0 Monocryl and then a running septic or 4-0 Monocryl. Steri-Strips Telfa and OpSite dressing applied. At the patient request local was instilled at the partially avulsed proximal left dorsal forearm skin lesion. Then I just simply completed the amputation and treated the base which appeared to be granulation tissue electrocautery. We applied topical antibiotic ointment and a Band-Aid. The small portion of avulsed tissue will be sent for analysis. Specimens: Partially avulsed skin lesion. Drains none. Blood loss minimal. The patient was taken to the recovery area in satisfactory edition without apparent complication Kalen Canales M.D., F.A.C.S. Type of Anesthesia:: Local MAC Anesthesiologist: Kameron Overton
[2019-05-30] MEDS: Bacitracin 500 UNITS/GM PACKET (13:11)
== END 2019-05-30 14:44 | disposition home or self-care (01) ==
LOC: SDC 09:52 → AC 09:54
PROVIDERS: Family Provider Family Medicine; PCP Family Medicine; Referring Provider Surgery; Visit Provider Surgery
PROC: (CPT 17262; principal; 2019-05-30 11:45)
DX: I12.0 Hypertensive chronic kidney disease with stage 5 chronic kidney disease or end stage renal disease (principal); N18.5 Chronic kidney disease, stage 5; C44.629 Squamous cell carcinoma of skin of left upper limb, including shoulder; L85.9 Epidermal thickening, unspecified; F17.200 Nicotine dependence, unspecified, uncomplicated; Z79.82 Long term (current) use of aspirin; Z88.2 Allergy status to sulfonamides; R06.02 Shortness of breath; R53.83 Other fatigue; E78.5 Hyperlipidemia, unspecified; I48.91 Unspecified atrial fibrillation; I73.9 Peripheral vascular disease, unspecified
CPT/HCPCS: 01844; 17262; 36821; 36415; 80048; 85027; 88305; 93005; A4216

== ENCOUNTER → 2019-07-11 10:08 | Outpatient (CLI) | payer MEDICARE, OTHER, SELFPAY ==
[2019-07-11 09:27] VITALS: BMI 20.5
[2019-07-11 10:48] LABS: Hematocrit 36.7 % (40-54); Mean Corp Hgb Conc 32.7 g/dL (32-36); Mean Corpuscular Hgb 32.2 pg (27.0-32.0); Mean Corpuscular Volume 98.4 fL (80-94); Mean Platelet Vol. 10.1 fl (6.2-12.0); Platelet Count 185 K/mm3 (150-450); RBC Distribution Width CV 16.6 % (11.6-14.6); RBC Distribution Width SD 60.4 fl (35.1-43.9); Red Blood Count 3.73 M/mm3 (4.6-6.2); White Blood Count 7.5 K/mm3 (4.4-11.0)
[2019-07-11 11:02] LABS: Anion Gap 5 (5-15); BUN 23 mg/dL (7-18); Calcium,Total 8.9 mg/dL (8.5-10.1); Chloride 101 mmol/L (98-107); Creatinine, Serum 4.58 mg/dL (0.70-1.30); EST Glomerular Filtration Rate 14 mL/min (>60); Est Glom Filt Rate - Afr Amer 16 mL/min (>60); Glucose 103 mg/dL (74-106); Potassium 3.6 mmol/L (3.5-5.1); Sodium Level 139 mmol/L (136-145)
== END ==
PROVIDERS: PCP Family Medicine; Referring Provider Surgery; Visit Provider Surgery
DX: Z01.818 Encounter for other preprocedural examination (principal); T82.898A Other specified complication of vascular prosthetic devices, implants and grafts, initial encounter
CPT/HCPCS: 36415; 80048; 85027

== ENCOUNTER 2019-07-18 09:14 | Day surgery (SDC) | payer MEDICARE, OTHER, SELFPAY ==
[2019-07-11 09:27] VITALS: BMI 20.5
--- NOTE | 2019-07-11 09:52 | HP_ITS ---
Intake Vital Signs 07/11/19 BMI 20.5 07/11/19 Height 5 ft 7 in 07/11/19 Weight: 130 lb 1 oz 07/11/19 BMI 20.3 07/11/19 BP 127/64 H 07/11/19 Blood Pressure Location Rt brachial 07/11/19 Position Sitting 07/11/19 Respiration 18 07/11/19 Pulse 97 07/11/19 Pulse Oximetry (%) 96 Intake Visit Reasons: BILATERAL CLAUDICATION Chief Complaint: leg pain Visual Merchandising Associate Required: No Is patient in pain?: No Allergies Sulfa (Sulfonamide Antibiotics) Adverse Reaction (Verified 07/11/19 09:27) Rash Medications Amiodarone HCl 200 mg PO DAILY 03/03/19 [History Confirmed 07/11/19] Amlodipine Besylate 2.5 mg PO DAILY 03/03/19 [History Confirmed 07/11/19] Aspirin E.C. [Ecotrin] 81 mg PO DAILY@0800 03/03/19 [History Confirmed 07/11/19] Atorvastatin Calcium 40 mg PO QHS 03/03/19 [History Confirmed 07/11/19] Thiamine Hydrochloride [Vitamin B1] 100 mg PO BID 03/03/19 [History Confirmed 07/11/19] carvedilol 3.125 mg tablet 3.125 mg PO BID #60 tab 07/09/19 [Rx Confirmed 07/11/19] [facility] Medical History (Updated 07/11/19 @ 09:48 by Kalen Canales MD) Problem with dialysis access (Acute) Chronic renal failure, stage 5 (Chronic) Atrial fibrillation (Chronic) COPD with acute exacerbation (Acute) Kidney disease (Chronic) Cardiac enzymes elevated (Resolved) Hypertensive emergency (Acute) Hypertension (Chronic) Hyperlipidemia (Chronic) Alcohol abuse (Chronic) PAD (peripheral artery disease) (Chronic) GERD (gastroesophageal reflux disease) (Acute) Superficial thrombophlebitis (Acute) Surgical History (Updated 07/11/19 @ 09:22 by Katty Talley) Hx of arteriovenostomy for renal dialysis (Acute) History of appendectomy (Acute) History of cataract extraction (Acute) History of retinal detachment (Acute) Family History Father Hypertension Mother Hypertension Sister Hypertension Brother Hypertension Social History (Updated 07/11/19 @ 09:53 by Kalen Canales MD) Smoking Status: Light Smoker (<10/day) HPI HPI HPI: ESTHER BONILLA, is a 69 M who presents to the office today for HPI HPI Surgical H&P: Yes HPI: I have not Darcy 69-year-old gentleman. He presents today for 2 separate issues. One is for surgical follow-up of a left forearm radiocephalic AV fistula that I created for him May 30, 2019. The other is for completely unrelated consultation today regarding bilateral lower extremity peripheral arterial occlusive disease and claudication/rest pain. Dialyzed through right IJ tunneled catheters. He was hospitalized January 2019 with acute kidney injury over chronic injury and pneumonia. A second and unrelated part of his appointment is to evaluate him for bilateral lower extremity complex prophylaxis or occlusive disease. The patient is a lifelong cigarette smoker. He continues to smoke. He has difficulty with rest pain and claudication. On April 09, 2019 at the [facility] he had bilateral extremity noninvasive exam. The right low thigh index was 0.5. The right PT and DP index 0.26 and 0.38 respectively. The right posterior tib and dorsalis pedis waveforms only monophasic. The left low thigh index was 0.52 with a left PT and DP index 0.42 and 0.45 with monophasic Doppler waveforms. He is felt to have severe multi segmental disease with probable aorto iliac occlusive disease ROS General General: Yes fatigue; no weight change, appetite, colon cancer, breast cancer or weakness HEENT HEENT: Yes eye surgery; no difficulty swallowing, eye injury, swollen glands or hoarseness Endo Endocrine: No thyroid disease, diabetes mellitus, thyroid cancer, Hair loss, heat intolerance or cold intolerance Cardio Cardiovascular: Yes atrial fibrillation and high blood pressure; no murmur, pacemaker, heart disease, heart attack, heart stent, palpitations, shortness of breat with exertion or chest pain Resp Respiratory: Yes shortness of breath, No sleep apnea, Yes cough, Yes COPD, No asthma, No emphysema, No wheezing Gastro Gastrointestinal: No abdominal pain, No nausea or vomiting, No diarrhea, No constipation, No blood in stool, Yes acid reflux, Yes hemorrhoids, No ulcers, No gallbladder problem, No black,tarry stools Rodolfo Hematologic: Yes blood thinners, No blood disorders, No bleeding, No anemia, No blood clots Neuro Neurologic: No weakness Exam Const General: other (Heavy odor of tobacco, patient appears much older than stated age) Nutritional Appearance: underweight Orientation: alert, awake Chest Other: Increased AP diameter Resp Effort & Inspection: normal respiratory effort Auscultation: clear to auscultation bilaterally Cardio Rate: regular rate Rhythm: regular rhythm Heart Sounds: no murmurs Other: Bilateral femoral pulses are not palpable. Bilateral popliteals DPs and PTs are 0 GI Palpation: soft, no hepatosplenomegaly Extrem Other: Marked ischemic changes bilateral extremities extending from the feet up to the mid tibia level. Dependent rubor. Elevation pallor. Atrophic toes. Hair loss. Multiple areas of superficial excoriation. In addition he has venous insufficiency with dilated superficial veins Left forearm AV fistula appears to be maturing very well in the midsection. The first 2 cm of the fistula however very diminutive. Assessment & Plan Problems 1. Problem with dialysis access, initial encounter T82.898A 2. PAD (peripheral artery disease) I73.9 Plan Regarding the patient's left forearm radiocephalic AV fistula. I propose a retrograde access carbon dioxide fistulogram with anticipated endovascular invention of the proximal portion of the fistula and I have described the technique, benefit, risk of alternatives. I believe that this attempt at balloon maturation angioplasty will be pertinent to establishing a functioning fistula. Regarding the patient's very severe bilateral lower extremity arterial occlusive disease with findings highly suspicious for aortoiliac occlusion. I do not feel comfortable proceeding locally with intervention. The patient apparently has some slight degree of renal function allowing him to urinate. I have cautioned him that contrast utilization likely would eradicate that last bit of functioning kidney. I have also suggested to him that due to the multi segmental severity of his disease that treatment of his PAD would be very challenging. I recommend to the patient tertiary referral. He has had an opportunity to ask and have questions answered. He will either discuss with his primary care physician or notify us if he wants a referral. I am not anticipating endovascular intervention regarding his lower extremities to be performed locally. He is aware of this. At the time of his fistula creation I amputated a irritated exophytic lesion of his left mid dorsal forearm. Pathology on that suggested squamous cell carcinoma. We had him tentatively scheduled in the near future to re-excise this area because of positive margins. We will delay that until after the fistulogram. Cc: Dr. Brown and Dr. Susie Canales, M.D., F.A.C.S. Coding Level of Care Code Off vis,est,level 3 Diagnoses Problem with dialysis access, initial encounter T82.898A ??Encounter type: initial encounter PAD (peripheral artery disease) I73.9 07/11/19 0953 <Electronically signed by Kalen griffin MD> Date _ Kalen Canales MD I have re-examined the patient. There are no clinical changes since date of exam.
[2019-07-17 10:00] VITALS: BMI 20.3
--- NOTE | 2019-07-18 11:33 | OP.PCM_ITS ---
Problem List (1) Problem with dialysis access Status: Acute Qualifiers: Encounter type: initial encounter Report of Operation Date of Procedure: 07/18/19 Pre-Operative Diagnosis: Failure to mature left forearm radial to cephalic arteriovenous hemodialysis fistula Post-Operative Diagnosis: Left forearm radiocephalic arteriovenous hemodialysis fistula with proximal venous stenosis Surgery/Procedure Performed:: Left upper extremity carbon dioxide fistulogram with 6 x 2 Powerflex proximal fistula arterial anastomotic angioplasty Description of Surgical Findings:: Timeout and informed consent was obtained. 69-year-old gent was taken to the special procedure lab placed on the table. Received 50 mcg of fentanyl milligram of Versed. The left extremity sterilely prepped draped. 2% lidocaine was instilled down near the wrist at the anticipated site of treatment. Then under ultrasound guidance local was instilled overlying the mid forearm fistula. Retrograde access was obtained with a micropuncture needle micropuncture wire 6 Japanese short sheath dilator. Using an angled Glidewire and a 4 Japanese glide catheter was able to get into the radial artery proximal to the anastomosis. Using 8 cc/inj. of carbon dioxide took a fistulogram. This demonstrated relative narrowing at the anastomosis and mild diffuse 60 to 70% stenosis of the proximal portion of the fistula with otherwise nicely patent vein. I then withdrew the glide cath and over the Glidewire placed a 6 x 2 Powerflex balloon. The arterial anastomosis was treated in the very proximal 2 to 3 cm of the vein were treated. This was done up to a total of 16 chema of pressure for 2 minutes. Completion view was obtained demonstrating now significant improvement in the proximal venous fistula. I fistulogram with carbon dioxide was completed for the entire left upper extremity. There were no apparent complications the sheath was removed U suture of 4-0 nylon was placed there was a good pulse thrill and bruit at the completion no apparent complications and he was taken to the recovery area. The fistulogram demonstrates a left forearm radiocephalic arteriovenous hemodialysis fistula with good flow in the forearm upper arm and central venous outflow. There was relative stenosis of the very proximal portion of the fistula including the arterial anastomosis which responded to 6 x 2 Powerflex angioplasty. Kalen Canales M.D., F.A.C.S. Type of Anesthesia:: IV Sedation, Local
== END 2019-07-18 12:50 | disposition home or self-care (01) ==
LOC: CLSP 09:15
PROVIDERS: PCP Family Medicine; Referring Provider Surgery; Visit Provider Surgery
DX: I73.9 Peripheral vascular disease, unspecified (principal); I87.1 Compression of vein; T82.898A Other specified complication of vascular prosthetic devices, implants and grafts, initial encounter; N18.5 Chronic kidney disease, stage 5; I48.91 Unspecified atrial fibrillation; I12.0 Hypertensive chronic kidney disease with stage 5 chronic kidney disease or end stage renal disease; E78.5 Hyperlipidemia, unspecified; F17.210 Nicotine dependence, cigarettes, uncomplicated; Z99.2 Dependence on renal dialysis; Z88.2 Allergy status to sulfonamides; Z79.82 Long term (current) use of aspirin
CPT/HCPCS: 36821; 36902; 76937; 99152; 99153; J7040; Q9967; C1725; C1769

== ENCOUNTER 2019-09-18 21:02 | Emergency (ER) | payer MEDICARE, OTHER, SELFPAY ==
[2019-09-17 07:27] VITALS: BMI 20.3
[2019-09-18 21:03] VITALS: BP 122/54; PULSE 64; RESP 16; TEMP 36.8; O2SAT 98; BMI 20.3
--- NOTE | 2019-09-18 21:50 | ED.VISSUMM ---
- ER Visit Summary Date of Service: 09/18/19 Chief Complaint: Bleeding from port site. History of Present Illness: The patient is a 69 M patient states he had a dialysis catheter removed recently. Patient states he has been bleeding from the area tonight. Patient states he applied pressure to the area with minimal improvement of the bleeding. Patient states he noted continued bleeding from under his dressing. Patient admits to some tingling in his right upper chest. Patient states nothing makes it better or worse. Patient denies any recent fevers or chills. Patient denies any cough or shortness of breath. Physical Examination: Vital signs are stable. Patient is afebrile. Patient is in no acute distress. Oral mucosa is pink and moist. Neck is supple. Trachea is midline. There is no JVD. Heart was regular rate and rhythm. Lungs are clear and equal bilaterally. Abdomen is soft. Bowel sounds are normal. There is no tenderness. Cranial nerves II through XII are intact. There are no focal motor or sensory deficits noted. The port site in the right upper chest shows some mild bleeding. Dressing was taken down. There is no erythema or warmth. There are no signs of infection. Test Results: Portable chest x-ray and CBC was ordered. Patient does not want to have this testing done. Refused any x-ray or lab. Emergency Department Course and Treatment: The dressing was replaced. Patient was instructed to continue to monitor the dressing. Patient was instructed to follow-up with his primary care physician as well as Dr. Kalen Canales in 3 to 5 days. Patient understood and was agreeable with the plan. All questions were answered. Disposition: Discharge home Impression: Postoperative bleeding This note was generated with [employer] dictation software. It may contain incorrect words, spelling, and punctuation that were not noted in review of the chart prior to signing ED Disposition - Plan for ED Patient: Disposition: Home or Assisted Living Diagnosis: Postoperative bleeding from incision Instructions: ED Wound Check Post Op Bleeding Referrals: Heath Brown MD [Primary Care Provider] - 3-5 Days Kalen Canales MD [STAFF PHYSICIAN] - 3-5 Days
--- NOTE | 2019-09-18 22:01 | ED.RN ---
Pt refusing blood work and xray. Dr Howe made aware. No new orders at this time.
== END 2019-09-18 22:57 | disposition home or self-care (01) ==
PROVIDERS: Emergency Provider Emergency Medicine; PCP Family Medicine
DX: L76.22 Postprocedural hemorrhage of skin and subcutaneous tissue following other procedure (principal); M54.9 Dorsalgia, unspecified; N18.6 End stage renal disease; Z72.0 Tobacco use
CPT/HCPCS: 99283

== ENCOUNTER → 2019-10-08 16:00 | Outpatient (CLI) | payer MEDICARE, OTHER, SELFPAY ==
[2019-10-08 12:48] VITALS: BMI 20.3
--- NOTE | 2019-10-08 13:00 | LES_PTH ---
PATIENT: ESTHER BONILLA LOC: [facility] U#:[id number] AGE/SX: 75/M ROOM: RE10/08/[address]: Dr. Kalen Canales MD : 1950 BED: DIS: SPEC #: [id number] RECD: 10/08/19 15:54 STATUS: RON SERGIO #: [id number] SELINA: 10/08/19 13:[address]: Kalen Canales DEPT: SURGICAL PATHOLOGY RECD BY: Alphonso Correia ENTERED: 10/09/19 09:20 SP TYPE: Lesion OTHR DR: Dr. Heath Brown MD Tissues: Skin of forearm, NOS Procedures: Surgery Specimen Level IV HEADER OPERATION: Re-excision left forearm PRE-OP DIAGNOSIS: Squamous cell carcinoma TISSUE SUBMITTED: Left forearm tissue vertical ellipse, suture in superior aspect MICROSCOPIC DIAGNOSIS Left forearm tissue, vertical ellipse, re-excision left forearm lesion: Squamous cell carcinoma in situ, completely excised. Dermal fibrosis consistent with scar (consistent with previous biopsy site). Actinic keratosis and extensive solar elastosis. LEIGHANN:esther 10/10/19 COMMENT Please make reference to previous specimen ([id number]) skin lesion, proximal left forearm, biopsy with diagnosis of fragments of squamous cell carcinoma. Case has been reviewed in consultation with Dr. Garay who concurs with the above diagnosis. IDC:AM MICROSCOPIC DESCRIPTION Slides are reviewed. GROSS DESCRIPTION Received in fixative is one container labeled with the patient's name and designated left forearm tissue. The specimen consists of an ellipse of pink-sepulveda skin measuring 3.5 x 1.5 x 0.2 cm. A suture is present at one tip. This tip and corresponding half is inked in black ink. The opposite half is inked in blue ink. The specimen is serially sectioned and totally submitted in one cassette. / AM:esther 10/09/19 TC:0 CPT: 89785
== END ==
PROVIDERS: PCP Family Medicine; Referring Provider Surgery; Visit Provider Surgery
DX: D04.62 Carcinoma in situ of skin of left upper limb, including shoulder (principal); L57.0 Actinic keratosis; L57.8 Other skin changes due to chronic exposure to nonionizing radiation
CPT/HCPCS: 88305

== ENCOUNTER → 2020-05-07 11:52 | Outpatient (CLI) | payer MEDICARE, OTHER, SELFPAY ==
[2020-05-07 11:04] VITALS: BMI 18.5
--- NOTE | 2020-05-07 11:55 | RAD_ITS ---
STUDY: X-RAY CHEST REASON FOR EXAM: Male, 70 years old. AMIODARONE THERAPY. ON KIDNEY DIALYSIS. NO CHEST COMPLAINTS TODAY TECHNIQUE: PA and lateral views of the chest. COMPARISON: Comparison is made with prior study dated 03/06/2019. FINDINGS: The right-sided dialysis catheter has been removed. Hyperinflation. The lungs are clear. There is no demonstrated pleural abnormality. Normal size heart. Normal mediastinum and susan. Normal visualized pulmonary arteries. There is atherosclerotic calcification of the aortic arch with tortuosity. There are degenerative changes of the visualized thoracic spine. Normal visualized ribs, clavicles, and shoulders. There is no demonstrated abnormality of the visualized soft tissue structures of the upper abdomen. RAD/Chest PA and Lateral IMPRESSION: Hyperinflation. The lungs are clear. Electronically Signed: Davis Najera, at 12:55 EST , Service support ,
[2020-05-07 13:53] LABS: AST(SGOT) 19 U/L (15-37); Alanine Aminotransfer ALT/SGPT 31 U/L (16-61); Albumin, Serum 3.3 g/dL (3.2-5.0); Alkaline Phosphatase 93 U/L (45-117); Bilirubin, Direct 0.17 mg/dL (0.00-0.30); Globulin 3.9 g/dL (2.2-4.2); Protein, Total 7.2 g/dL (6.4-8.2); T4 Free Direct 1.61 ng/dL (0.76-1.46); Thyroid Stim Hormone (TSH) 1.16 uIU/mL (0.358-3.74)
== END ==
PROVIDERS: PCP Family Medicine; Referring Provider Internal Medicine Cardiovascular Disease; Visit Provider Internal Medicine Cardiovascular Disease
DX: I48.0 Paroxysmal atrial fibrillation (principal); E78.5 Hyperlipidemia, unspecified; I10 Essential (primary) hypertension; I73.9 Peripheral vascular disease, unspecified; Z79.899 Other long term (current) drug therapy
CPT/HCPCS: 36415; 71046; 80076; 84439; 84443

== ENCOUNTER → 2020-08-25 08:06 | Outpatient (CLI) | payer MEDICARE, OTHER, SELFPAY ==
[2020-05-07 11:04] VITALS: BMI 18.5
--- NOTE | 2020-08-25 12:37 | PFT ---
INTRODUCTION: The patient is a 70-year-old male that presents for pulmonary function studies secondary to a diagnosis of high risk medication use. Respiratory therapy reports good patient effort. Bronchodilators were used during testing. INTERPRETATION: Forced expiration spirometry demonstrates the presence of a moderate large airways obstructive ventilatory defect. There was no significant response to aerosolized bronchodilators. Spirograms are of fair quality but do not plateau indicating slow emptying of the lungs. Body plethysmography was performed and revealed an elevated TLC and RV, indicative of underlying hyperinflation and air trapping. Diffusing capacity by single breath CO is within normal limits at 90% of predicted. IMPRESSION: Irreversible moderate large airways obstructive ventilatory defect with associated hyperinflation and air trapping. Diffusing capacity is preserved.
== END ==
PROVIDERS: PCP Family Medicine; Visit Provider Internal Medicine Cardiovascular Disease
DX: I48.0 Paroxysmal atrial fibrillation (principal); E78.5 Hyperlipidemia, unspecified; I10 Essential (primary) hypertension; I73.9 Peripheral vascular disease, unspecified; Z79.899 Other long term (current) drug therapy
CPT/HCPCS: 94060; 94726; 94729

== ENCOUNTER → 2020-09-04 07:08 | Outpatient (CLI) | payer MEDICARE, OTHER, SELFPAY ==
[2020-05-07 11:04] VITALS: BMI 18.5
--- NOTE | 2020-09-04 07:13 | CT_ITS ---
STUDY: CT SOFT TISSUE NECK WITH CONTRAST REASON FOR EXAM: Male, 70 years old. VOCAL bone. PARALYSIS. COPD. RADIATION DOSAGE (If Supplied By Facility): CTDIvol = ( 9.95 ) mGy, DLP = ( 717.46 ) mGycm TECHNIQUE: The patient was scanned in a multi-detector CT scanner. High resolution transaxial imaging was performed following intravenous administration of IV 75mL Isovue-300. Sagittal and coronal images were reconstructed. Individualized dose optimization techniques were used for this CT. COMPARISON: None. FINDINGS: Normal bilateral parotid glands. Normal bilateral roller picker spaces. Normal bilateral parapharyngeal spaces. Normal bilateral carotid spaces. Normal bilateral sublingual and submandibular glands and spaces. Normal visualized nasopharynx. Normal retropharyngeal space. Normal perivertebral space. Normal visualized bilateral faucial tonsils. The visualized tongue, tongue base and oropharynx are normal. Dense calcific plaques at the level of the carotid bifurcations bilaterally worse on the left side. There is a 2.4 cm x 2.4 cm mass in the left side of the larynx with destruction of the left cricoid cartilage with involvement of the left vocal cord. Heterogeneous appearance of the left lobe of the thyroid with the calcific nodule in the lower pole. There is a 3.3 cm x 2.7 cm irregular mass in the medial aspect of the left upper lobe abutting the mediastinum. Normal visualized paranasal sinuses. There is multilevel degenerative changes of the cervical spine. CT/Soft Tissue Neck WITH Contrast IMPRESSION: 3.3 cm x 2.7 cm irregular mass in the medial aspect of left upper lobe abutting the mediastinum. 2.4 cm x 2.4 cm mass in the left side of the larynx with destruction of the left cricoid cartilage and involvement of the left vocal cord. Electronically Signed: Davis Najera MD at 9:29 EDT , Service support ,
--- NOTE | 2020-09-04 07:13 | CT_ITS ---
STUDY: CT CHEST WITH CONTRAST REASON FOR EXAM: Male, 70 years old. VOCAL CORD PARALYSIS RADIATION DOSAGE (If Supplied By Facility): CTDIvol = ( 9.95 ) mGy, DLP = ( 717.46 ) mGycm TECHNIQUE: Transaxial imaging was performed following intravenous administration of IV 75mL Isovue-300. Multiplanar coronal and sagittal images were reformatted. Individualized dose optimization techniques were used for this CT. COMPARISON: None. FINDINGS: There is a 2.1 cm x 2.1 cm soft tissue mass in the left aspect of the larynx with destruction of the cricoid cartilage. Allergies appearance of the left lobe of the thyroid inferiorly with a focal calcification. There is a 2.8 cm x 2.4 cm spiculated mass arising from the medial aspect of the left upper lobe abutting the mediastinum. Focal increased linear density in the lateral aspect of the left lower superiorly. There is a 7 mm lower based nodule in the peripheral aspect of the right lower lobe as seen on axial image #64. This may represent an area of scarring. There is no demonstrated pleural abnormality. Normal heart and pericardium. There are multiple small lymph nodes within the mediastinum, which are normal in size and morphology most compatible with reactive lymph hyperplasia. Normal hilar regions. Normal enhanced pulmonary arteries. There is atherosclerotic calcification of the aortic arch with tortuosity and elongation of the aortic arch and descending thoracic aorta. There are mild degenerative changes of the thoracic spine. There is a 1.8 cm cyst in the left lobe of the liver superiorly. There is a 2 cm enhancing lesion in the right adrenal gland. Imaging of the abdomen is recommended for further evaluation. There is hyperplasia of the left adrenal gland. CT/Chest WITH Contrast IMPRESSION: 2.8 cm x 2.4 some spiculated mass arising from the medial aspect of the left upper lobe abutting the mediastinum. 2.1 cm x 2.1 sinus soft tissue mass in the left aspect of the larynx with destruction of the underlying cricoid cartilage. 2 cm enhancing lesion in the right adrenal gland with hyperplasia of the left adrenal gland. Electronically Signed: Davis Najera MD at 9:44 EDT , Service support ,
== END ==
PROVIDERS: PCP Family Medicine; Referring Provider Otolaryngology; Visit Provider Otolaryngology
DX: R49.0 Dysphonia (principal); R13.13 Dysphagia, pharyngeal phase; J38.01 Paralysis of vocal cords and larynx, unilateral
CPT/HCPCS: 70491; 71260; Q9967